=== PATIENT | male | born 1965 | race Caucasian/White ===

== ENCOUNTER → 2016-06-11 | Outpatient (CLI) | payer MEDICAID ==
[2016-06-11 11:46] LABS: ALANINE AMINOTRANSFERASE 28 U/L (21-72); ALBUMIN 3.8 g/dL (3.5-5.0); ALKALINE PHOSPHATASE 107 U/L (38-126); ANION GAP 12 (5-19); ASPARTATE AMINO TRANSFERASE 20 U/L (17-59); BILIRUBIN,TOTAL 0.4 mg/dL (0.2-1.3); BLOOD UREA NITROGEN 13 mg/dL (7-20); CALCIUM 9.2 mg/dL (8.4-10.2); CARBON DIOXIDE 27 mmol/L (22-30); CHLORIDE 103 mmol/L (98-107); CREATININE RESULT 0.81 mg/dL (0.52-1.25); GLUCOSE 85 mg/dL (75-110); SODIUM 141.7 mmol/L (137-145); TOTAL PROTEIN 6.8 g/dL (6.3-8.2)
== END ==
LOC: OD 10:26
PROVIDERS: ATTEND Nurse Practitioner Adult Health
DX: G25.81 Restless legs syndrome (principal)
CPT/HCPCS: 36415; 80053; 82306; 82607; 82728

== ENCOUNTER → 2016-06-19 | Outpatient (CLI) | payer MEDICAID ==
[2016-06-19 10:44] LABS: ABSOLUTE BASOPHILS # (AUTO) 0.1 10^3/uL (0.0-0.2); ABSOLUTE EOSINOPHILS # (AUTO) 0.1 10^3/uL (0.0-0.6); ABSOLUTE MONOCYTES (AUTO) 0.3 10^3/uL (0.1-1.4); ABSOLUTE NEUT (AUTO) 7.6 10^3/uL (1.7-8.2); BASOPHILS % (AUTO) 0.6 % (0-2); HEMATOCRIT 45.5 % (37.9-51.0); HEMOGLOBIN 15.6 g/dL (13.5-17.0); HGB HCT DIFFERENCE 1.3; LYMPHOCYTES % (AUTO) 10.9 % (13-45); MEAN CORPUSCULAR HEMOGLOBIN 34.6 pg (27.0-33.4); MEAN CORPUSCULAR HGB CONC 34.4 g/dL (32.0-36.0); MEAN CORPUSCULAR VOLUME 101 fl (80-97); MONOCYTES % (AUTO) 3.8 % (3-13); RED BLOOD COUNT 4.52 10^6/uL (4.35-5.55); SEGMENTED NEUTROPHILS % (AUTO) 83.7 % (42-78)
[2016-06-19 11:26] LABS: ERYTHROCYTE SEDIMENTATION RATE 16 mm/hr (0-20)
[2016-06-19 11:48] LABS: ADD HIVPANEL? NO; HIV (1 AND 2) ANTIBODY NEGATIVE (NEGATIVE)
[2016-06-20 08:47] LABS: PSA FREE 0.25 ng/mL
[2016-06-20 12:38] LABS: JO-1 ANTIBODY <0.2 AI (0.0-0.9)
== END ==
LOC: OD 10:17
PROVIDERS: ATTEND Nurse Practitioner Adult Health
DX: F50.00 Anorexia nervosa, unspecified (principal)
CPT/HCPCS: 36415; 84154; 85025; 85652; 86225; 86235; 86304; 86430; 86701

== ENCOUNTER → 2017-01-31 | Outpatient (CLI) | payer MEDICAID ==
--- NOTE | 2017-01-31 10:29 | RADIOLOGY REPORT (SQ) ---
EXAM DESCRIPTION: CT CHEST WITHOUT COMPLETED DATE/TIME: 01/31/2017 9:18 am REASON FOR STUDY: OTHER NONSPECIFIC ABN FINDING OF LUNG FIELD (R91.8) R91.8 OTHER NONSPECIFIC ABNOR MAL FINDING OF LUNG FIELD COMPARISON: 04/19/2016. Correlation: PET-CT 05/10/2016 TECHNIQUE: CT scan performed of the chest without intravenous contrast. Images reviewed with lung, soft tissue and bone windows. Reconstructed coronal and sagittal MPR images reviewed. All images st ored on PACS. All CT scanners at this facility use dose modulation, iterative reconstruction, and/or weight based d osing when appropriate to reduce radiation dose to as low as reasonably achievable (ALARA). [facility]: Dose Right [facility]: CareDose [facility]: Dose Right [facility]: Teradose 4D [facility]: [employer] RADIATION DOSE: Up-to-date CT equipment and radiation dose reduction techniques were employed. CTDIv ol: 5.6 mGy. DLP: 237 mGy-cm. mGy. LIMITATIONS: No technical limitations. FINDINGS: LUNGS AND PLEURA: The previously described lung nodules are all stable in size with the ex ception of the left lower lobe. There is now a mass measuring about 3.4 by 4.0 cm in the superior se gment of the left lower lobe. No new nodules. Bilateral emphysematous changes. No effusions. HILAR AND MEDIASTINAL STRUCTURES: No identified masses or abnormal nodes. No obvious aneurysm. HEART AND VASCULAR STRUCTURES: No aneurysm. No pericardial effusion. UPPER ABDOMEN: No significant findings. Limited exam. THYROID AND OTHER SOFT TISSUES: No masses. No adenopathy. BONES: No significant finding. HARDWARE: None in the chest. OTHER: No other significant findings. IMPRESSION: Enlarging mass in the superior segment of the left lower lobe. Consider follow-up repea t PET CT. Lesion is amenable to CT-guided biopsy. TECHNICAL DOCUMENTATION: JOB ID: [id number] Quality ID # [id number]: Final reports with documentation of one or more dose reduction techniques (e.g., Au tomated exposure control, adjustment of the mA and/or kV according to patient size, use of iterative reconstruction technique) 2010 [employer]- All Rights Reserved
== END ==
LOC: RAD 09:06
PROVIDERS: ATTEND Internal Medicine Pulmonary Disease
DX: R91.8 Other nonspecific abnormal finding of lung field (principal)
CPT/HCPCS: 71250

== ENCOUNTER 2017-02-12 10:27 | Day surgery (SDC) | payer MEDICAID ==
[~2017-02-12 10:27] MED LIST: KETOROLAC TROMETHAMINE 0.45% 4 DROP/0.4 ML DROPERETTE OS PRN; MITOMYCIN OPH SOLN 0.02% 2 ML OS PRN
[2017-02-12] MEDS ORDERED: TOBRAMYCIN SULFATE/DEXAMETH OPH OINTMENT 3.5 GM ONE (10:44)
[2017-02-12] MEDS ORDERED: LIDOCAINE 1%/EPINEPHRINE INJ 20 ML VIAL ONE (10:44)
[2017-02-12] MEDS: BESIFLOXACIN HCL 0.6% OPH SUSP 5 ML BOTTLE OS PRN ×3 (11:09→12:56)
[2017-02-12] MEDS: TETRACAINE HCL 0.5% OPH SOLN 0.6 ML DROPERETTE OS PRN ×2 (11:10→12:05)
[2017-02-12] MEDS ORDERED: FENTANYL CITRATE INJ/PF 100 MCG/2 ML AMPUL ONE (11:33)
[2017-02-12] MEDS ORDERED: MIDAZOLAM 2 MG/2 ML INJ ONE (11:33)
[2017-02-12] MEDS ORDERED: LIDOCAINE 2% INJ-PF (20 MG/ML) 10 ML AMPUL ONE (11:34)
[2017-02-12] MEDS ORDERED: PROPOFOL INJ 200 MG/20 ML VIAL IV ONE (11:34)
[2017-02-12] MEDS ORDERED: ALBUTEROL SULFATE 0.083% NEB 2.5 MG/3 ML AMPUL NEB ONE (11:35)
[2017-02-12] MEDS ORDERED: POVIDONE-IODINE 5% OPH PREP SOLN 30 ML ONE (12:01)
== END 2017-02-12 13:29 | disposition home or self-care (01) ==
LOC: SC 10:27
PROVIDERS: ATTEND Ophthalmology
PROC: 08BTXZZ Excision of Left Conjunctiva, External Approach (ICD-10-PCS; principal; 2017-02-12 11:45)
DX: H11.052 Peripheral pterygium, progressive, left eye (principal); F17.210 Nicotine dependence, cigarettes, uncomplicated; J44.9 Chronic obstructive pulmonary disease, unspecified; E78.00 Pure hypercholesterolemia, unspecified; K21.9 Gastro-esophageal reflux disease without esophagitis; F32.9 Major depressive disorder, single episode, unspecified; Z79.51 Long term (current) use of inhaled steroids; Z79.899 Other long term (current) drug therapy; Z99.81 Dependence on supplemental oxygen; Z88.0 Allergy status to penicillin
CPT/HCPCS: 65426; J2250; J3490 ×6; J3010; J2704; J9280; 140

== ENCOUNTER → 2017-02-21 | Outpatient (CLI) | payer MEDICAID ==
[2017-02-21 09:28] LABS: ABSOLUTE BASOPHILS # (AUTO) 0.1 10^3/uL (0.0-0.2); ABSOLUTE EOSINOPHILS # (AUTO) 0.2 10^3/uL (0.0-0.6); ABSOLUTE LYMPHOCYTES (AUTO) 1.3 10^3/uL (0.5-4.7); ABSOLUTE MONOCYTES (AUTO) 0.5 10^3/uL (0.1-1.4); ABSOLUTE NEUT (AUTO) 9.3 10^3/uL (1.7-8.2); BASOPHILS % (AUTO) 0.5 % (0-2); EOSINOPHILS % (AUTO) 1.4 % (0-6); HEMATOCRIT 43.1 % (37.9-51.0); HEMOGLOBIN 14.8 g/dL (13.5-17.0); HGB HCT DIFFERENCE 1.3; LYMPHOCYTES % (AUTO) 11.1 % (13-45); MEAN CORPUSCULAR HEMOGLOBIN 34.3 pg (27.0-33.4); MEAN CORPUSCULAR HGB CONC 34.5 g/dL (32.0-36.0); MEAN CORPUSCULAR VOLUME 100 fl (80-97); MONOCYTES % (AUTO) 4.8 % (3-13); RED BLOOD COUNT 4.32 10^6/uL (4.35-5.55); RED CELL DISTRIBUTION WIDTH 14.2 % (11.5-14.0); SEGMENTED NEUTROPHILS % (AUTO) 82.2 % (42-78); WHITE BLOOD COUNT 11.3 10^3/uL (4.0-10.5)
[2017-02-21 09:44] LABS: PROTHROMBIN TIME 12.6 SEC (11.4-15.4)
== END ==
LOC: LAB 09:18
PROVIDERS: ATTEND Internal Medicine Pulmonary Disease
DX: R91.8 Other nonspecific abnormal finding of lung field (principal)
CPT/HCPCS: 36415; 82310; 85025; 85610; 85730

== ENCOUNTER 2017-02-24 08:54 | Inpatient (IN) | payer MEDICAID ==
[2017-02-24 09:56] LABS: HEMATOCRIT 43.5 % (37.9-51.0); HEMOGLOBIN 14.9 g/dL (13.5-17.0); HGB HCT DIFFERENCE 1.2; MEAN CORPUSCULAR HEMOGLOBIN 34.2 pg (27.0-33.4); MEAN CORPUSCULAR HGB CONC 34.3 g/dL (32.0-36.0); MEAN CORPUSCULAR VOLUME 100 fl (80-97); RED BLOOD COUNT 4.36 10^6/uL (4.35-5.55); RED CELL DISTRIBUTION WIDTH 13.6 % (11.5-14.0); WHITE BLOOD COUNT 10.8 10^3/uL (4.0-10.5)
[2017-02-24 10:12] LABS: PROTHROMBIN TIME 12.5 SEC (11.4-15.4)
[2017-02-24 10:13] LABS: PARTIAL THROMBOPLASTIN TIME 40.8 SEC (23.5-35.8)
[2017-02-24 10:23] LABS: BLOOD UREA NITROGEN 11 mg/dL (7-20); CREATININE RESULT 0.63 mg/dL (0.52-1.25)
[2017-02-24] MEDS ORDERED: FENTANYL CITRATE INJ/PF 100 MCG/2 ML AMPUL ONE (11:11)
[2017-02-24] MEDS ORDERED: MIDAZOLAM 2 MG/2 ML INJ ONE (11:11)
--- NOTE | 2017-02-24 13:07 | RADIOLOGY REPORT (SQ) ---
EXAM DESCRIPTION: CHEST SINGLE VIEW COMPLETED DATE/TIME: 02/24/2017 12:15 pm REASON FOR STUDY: POST BX OF LUNG COMPARISON: Lung biopsy 02/24/2017, 1130 hours EXAM PARAMETERS: NUMBER OF VIEWS: One view. TECHNIQUE: Single frontal radiographic view of the chest acquired. RADIATION DOSE: NA LIMITATIONS: None. FINDINGS: LUNGS AND PLEURA: This study is immediate post CT-guided left lung nodule biopsy. Left-sided 20 to 40% pneumothorax is evident on the film. Patient's vital signs were stable although he was experiencing pain along the left shoulder and clavicle. Shortly after this film was obtained, a 10 Greek locking pigtail catheter was placed at the left lung apex under CT guidance. Left perihilar previously biopsied nodule is again seen. Right lung hyperinflated and hyperlucent from obstructive disease. No right pneumothorax. MEDIASTINUM AND HILAR STRUCTURES: No masses. Contour normal. HEART AND VASCULAR STRUCTURES: Heart normal in size. Normal vasculature. BONES: No acute findings. HARDWARE: None in the chest. OTHER: No other significant finding. IMPRESSION: Immediate post procedure chest x-ray demonstrates a moderate-sized pneumothorax. Subseq uently, a 10 Greek left apical pigtail catheter was placed under CT guidance. TECHNICAL DOCUMENTATION: JOB ID: [id number]
--- NOTE | 2017-02-24 13:17 | RADIOLOGY REPORT (SQ) ---
EXAM DESCRIPTION: CHEST SINGLE VIEW COMPLETED DATE/TIME: 02/24/2017 1:01 pm REASON FOR STUDY: POST CHEST TUBE INSERTION COMPARISON: 02/24/2017 EXAM PARAMETERS: NUMBER OF VIEWS: One view. TECHNIQUE: Single frontal radiographic view of the chest acquired. RADIATION DOSE: NA LIMITATIONS: None. FINDINGS: LUNGS AND PLEURA: A mass is once again seen in the left lung. The pneumothorax has resolv ed. MEDIASTINUM AND HILAR STRUCTURES: No masses. Contour normal. HEART AND VASCULAR STRUCTURES: Heart normal in size. Normal vasculature. BONES: No acute findings. HARDWARE: Pigtail catheter is present in left hemithorax. OTHER: No other significant finding. IMPRESSION: The pneumothorax has resolved after placement of a chest tube. Left pulmonary mass. TECHNICAL DOCUMENTATION: JOB ID: [id number]
--- NOTE | 2017-02-24 14:34 | RADIOLOGY REPORT (SQ) ---
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 LIMITATIONS: None. PROCEDURE: Post biopsy chest film shows a moderate-sized pneumothorax. Patient's vital signs were s table, pulse oximetry 99%. However, he was experiencing left shoulder and clavicle pain. CT-guided chest tube placement was performed, chest tube placed to a Pleur-evac device on 20 cm of water suctio n. Post chest tube placement CT demonstrates a trace apical residual pneumothorax. Findings discuss ed with Dr. Gaspar and Dr. Jackson Images acquired during the procedure were stored on PACS. All CT scanners at this facility use dose modulation, iterative reconstruction, and/or weight based d osing when appropriate to reduce radiation dose to as low as reasonably achievable (ALARA). [facility]: Dose Right [facility]: CareDose [facility]: Dose Right [facility]: Teradose 4D [facility]: Issue FINDINGS: Post biopsy chest film was reviewed. The findings were immediately discussed with the pat ient who agreed to CT-guided chest tube placement. Patient placed supine on the CT gurney, site marked, timeout performed. Helical CT demonstrated a mo derate-sized anterior left pneumothorax. Site prepped with ChloraPrep, local lidocaine for skin and soft tissue anesthesia. An 18 gauge singl e wall access needle was used to the access the anterior upper left chest 3rd rib interspace. Prompt return of air. At this point, a 0.38 guidewire was placed through the needle, the needle removed, t he tract dilated with a 7 Wolof dilator, and at 10 Wolof locking pigtail catheter was placed, with the pigtail tip over the left lung apex. Manual evacuation of the pneumothorax was performed, patient's shoulder pain improved. Vital signs r emained stable during the procedure and immediately after procedure. The tube was secured to the patient's skin, and placed to a Pleur-evac device on 20 cm of water sucti on. Post chest tube placement plain film demonstrated resolution of the left pneumothorax. During the procedure, patient was given 50 mcg of IV fentanyl for pain control. Continuous physiolog ic monitoring of patient before during and after the IV pain control by radiology nursing personnel. IMPRESSION: SUCCESSFUL CT GUIDED LEFT CHEST TUBE PLACEMENT. COMMENT: Patient medication list reviewed: Yes- RS [id number]:Eligible professional attests to document ing in the medical record they obtained, updated, or reviewed the patient's current medications. Quality ID 145: Final reports for procedures using fluoroscopy that document radiation exposure maikel liz, or exposure time and number of fluorographic images (if radiation exposure indices are not avail able) TECHNICAL DOCUMENTATION: JOB ID: [id number] Quality ID # 436: Final reports with documentation of one or more dose reduction techniques (e.g., Au tomated exposure control, adjustment of the mA and/or kV according to patient size, use of iterative reconstruction technique) 2010 [employer]- All Rights Reserved
--- NOTE | 2017-02-24 14:40 | RADIOLOGY REPORT (SQ) ---
EXAM DESCRIPTION: CT BIOPSY LUNG/MEDIASTINUM; CT NEEDLE PLACEMENT COMPLETED DATE/TIME: 02/24/2017 2:00 pm REASON FOR STUDY: NONSPECIFIC ABNORMAL FINDINGS OF LUNG FIELD R91.8 OTHER NONSPECIFIC ABNORMAL FIND ING OF LUNG FIELD COMPARISON: NEXT TECHNIQUE: CT guided biopsy of the LEFT LOWER LOBE CAVITARY MASS performed with conscious sedation. CT Fluoroscopy Time: [address] scanners at this facility use dose modulation, iterative reconstruction, and/or weight based d osing when appropriate to reduce radiation dose to as low as reasonably achievable (ALARA). [facility]: Dose Right [facility]: CareDose [facility]: Dose Right [facility]: Teradose 4D [facility]: [employer] RADIATION DOSE: 72mGy. FINDINGS: The procedure was discussed with the patient and the patient agreed to the procedure. Prio r to the procedure, a time out was performed to verify the patient's identity and planned procedure. IV sedation was administered and physician direction by the registered nurse using 0.5 milligrams of Versed and 50 micrograms of fentanyl. Physiologic monitoring was provided before, during, and after s edation. The total sedation time was 30 minutes. Documentation face to face time, the performing proceduralist, spent monitoring the patient: [address] scanning was performed to localize the percutaneous site for the biopsy approach. After sterile skin prep and local lidocaine for skin and deep tissue anesthesia, a coaxial biopsy nee dle was used to obtain multiple cores of tissue. One core of tissue was submitted to the lab in [facility] [place] and AFB workup Three cores of tissue were submitted to the lab in formalin. Trace pneu mothorax adjacent to the biopsy site seen at the immediate post biopsy CT exam. Follow-up chest film dictated separately demonstrated a moderate-sized left pneumothorax. The 10 Persian locking pigtail catheter was placed in the left pleural space under CT guidance, dictated separately. Pathology is pending at the time of dictation. IMPRESSION: CT GUIDED BIOPSY OF THE LEFT LOWER LOBE MASS PATHOLOGY PENDING. COMMENT: Quality ID 145: Final reports for procedures using fluoroscopy that document radiation exp osure indices, or exposure time and number of fluorographic images (if radiation exposure indices are not available) Patient medication list reviewed: Yes- Quality ID# [id number]:Eligible professional attests to documenting i n the medical record they obtained, updated, or reviewed the patient's current medications.. TECHNICAL DOCUMENTATION: JOB ID: [id number] Quality ID# 436: Final reports with documentation of one or more dose reduction techniques (e.g., Aut omated exposure control, adjustment of the mA and/or kV according to patient size, use of iterative r econstruction technique) 2010 [employer]- All Rights Reserved
--- NOTE | 2017-02-24 14:40 | RADIOLOGY REPORT (SQ) ---
EXAM DESCRIPTION: CT BIOPSY LUNG/MEDIASTINUM; CT NEEDLE PLACEMENT COMPLETED DATE/TIME: 02/24/2017 2:00 pm REASON FOR STUDY: NONSPECIFIC ABNORMAL FINDINGS OF LUNG FIELD R91.8 OTHER NONSPECIFIC ABNORMAL FIND ING OF LUNG FIELD COMPARISON: NEXT TECHNIQUE: CT guided biopsy of the LEFT LOWER LOBE CAVITARY MASS performed with conscious sedation. CT Fluoroscopy Time: [address] scanners at this facility use dose modulation, iterative reconstruction, and/or weight based d osing when appropriate to reduce radiation dose to as low as reasonably achievable (ALARA). [facility]: Dose Right [facility]: CareDose [facility]: Dose Right [facility]: Teradose 4D [facility]: [employer] RADIATION DOSE: 72mGy. FINDINGS: The procedure was discussed with the patient and the patient agreed to the procedure. Prio r to the procedure, a time out was performed to verify the patient's identity and planned procedure. IV sedation was administered and physician direction by the registered nurse using 0.5 milligrams of Versed and 50 micrograms of fentanyl. Physiologic monitoring was provided before, during, and after s edation. The total sedation time was 30 minutes. Documentation face to face time, the performing proceduralist, spent monitoring the patient: [address] scanning was performed to localize the percutaneous site for the biopsy approach. After sterile skin prep and local lidocaine for skin and deep tissue anesthesia, a coaxial biopsy nee dle was used to obtain multiple cores of tissue. One core of tissue was submitted to the lab in [facility] for fungal and AFB workup Three cores of tissue were submitted to the lab in formalin. Trace pneu mothorax adjacent to the biopsy site seen at the immediate post biopsy CT exam. Follow-up chest film dictated separately demonstrated a moderate-sized left pneumothorax. The 10 Mongolian locking pigtail catheter was placed in the left pleural space under CT guidance, dictated separately. Pathology is pending at the time of dictation. IMPRESSION: CT GUIDED BIOPSY OF THE LEFT LOWER LOBE MASS PATHOLOGY PENDING. COMMENT: Quality ID 145: Final reports for procedures using fluoroscopy that document radiation exp osure indices, or exposure time and number of fluorographic images (if radiation exposure indices are not available) Patient medication list reviewed: Yes- Quality ID# [id number]:Eligible professional attests to documenting i n the medical record they obtained, updated, or reviewed the patient's current medications.. TECHNICAL DOCUMENTATION: JOB ID: [id number] Quality ID# 436: Final reports with documentation of one or more dose reduction techniques (e.g., Aut omated exposure control, adjustment of the mA and/or kV according to patient size, use of iterative r econstruction technique) 2010 [employer]- All Rights Reserved
--- NOTE | 2017-02-24 15:22 | RADIOLOGY REPORT (SQ) ---
EXAM DESCRIPTION: CHEST SINGLE VIEW COMPLETED DATE/TIME: 02/24/2017 3:09 pm REASON FOR STUDY: 2 HOUR POST CHEST TUBE PLACEMENT @ 1500 COMPARISON: 02/24/2017 EXAM PARAMETERS: NUMBER OF VIEWS: One view. TECHNIQUE: Single frontal radiographic view of the chest acquired. RADIATION DOSE: NA LIMITATIONS: None. FINDINGS: LUNGS AND PLEURA: Stable left-sided lung masses. No new opacities, masses or significant residual pneumothorax. No pleural effusion. MEDIASTINUM AND HILAR STRUCTURES: No masses. Contour normal. HEART AND VASCULAR STRUCTURES: Heart normal in size. Normal vasculature. BONES: Will position left-sided chest tube. HARDWARE: None in the chest. OTHER: No other significant finding. IMPRESSION: NO SIGNIFICANT RESIDUAL PNEUMOTHORAX STATUS POST LUNG BIOPSY AND PLACEMENT OF CHEST TUBE . STABLE APPEARANCE OF LEFT-SIDED LUNG MASSES. TECHNICAL DOCUMENTATION: JOB ID: [id number]
[2017-02-24] MEDS: OXYCODONE-ACETAMINOPHEN 5-325 MG TABLET PO PRN ×2 (15:53→20:18)
[2017-02-24] MEDS ORDERED: ALBUTEROL SULFATE 0.083% NEB 2.5 MG/3 ML AMPUL NEB PRN ×2 (16:21→16:56)
[2017-02-24] MEDS ORDERED: ACETAMINOPHEN 325 MG TABLET PO PRN (16:23)
[2017-02-24] MEDS ORDERED: ONDANSETRON HCL INJ/PF 4 MG/2 ML SDV IV PRN (16:23)
--- NOTE | 2017-02-24 16:39 | PDOC H&P ---
History of Present Illness Admission Date/PCP: 02/24/17 13:05 RAYMOND PONCE PA-C Patient complains of: Pneumothorax History of Present Illness: KRISTIE MAYBERRY JR is a 51 year old male, with COPD oxygen dependent left lung mass who underwent CT-guided biopsy in radiology earlier today outpatient developed pneumothorax requiring insertion of the chest tube and referring the patient for observation. Patient apparently in his usual state of health, chronic shortness of breath on exertion, oxygen dependent at night. Chronic expiratory wheezing that is mild. Chronic coughing as well. There was no new symptoms for the past several weeks. Patient denies any chills and fever. Denies any specific complaints at this time other than pain on inspiration on the chest tube insertion site. Past Medical History Cardiac Medical History: Reports: Hyperlipidema, Other - Abdominal aortic aneurysm Denies: Coronary Artery Disease, Myocardial Infarction, Hypertension Pulmonary Medical History: Reports: Asthma, Bronchitis, Chronic Obstructive Pulmonary Disease (COPD), Pneumonia, Respiratory Failure - Oxygen dependent Neurological Medical History: Reports: Seizures - 2007 put on seizure/MEDICATED QHS GI Medical History: Reports: Gastroesophageal Reflux Disease Denies: Hepatitis, Hiatal Hernia Musculoskeltal Medical History: Reports: Arthritis, Other - Chronic pain Psychiatric Medical History: Reports: Depression Hematology: Denies: Anemia, Sickle Cell Disease Past Surgical History Past Surgical History: Reports: Other - Chest tube placement Denies: Pacemaker Social History Information Source: Patient Smoking Status: Current Every Day Smoker Frequency of Alcohol Use: None Hx Recreational Drug Use: No Drugs: None Hx Prescription Drug Abuse: No Family History Family History: CAD, Other - COPD -father Parental Family History Reviewed: Yes Children Family History Reviewed: Yes Sibling(s) Family History Reviewed.: Yes Medication/Allergy Home Medications: Phenytoin Sodium Extended [Dilantin] 300 mg PO QHS 12/27/12 Simvastatin 40 mg PO QHS 12/27/12 Esomeprazole Mag Trihydrate [Nexium] 40 mg PO DAILY 11/26/14 Fluticasone/Salmeterol [Advair 500-50 Diskus 28 Dose] 1 inh IH Q12 11/26/14 Albuterol Sulfate [Ventolin 0.083% Neb 2.5 mg/3 ml Ampul] 1 vial NEB Q4HP PRN Duloxetine HCl [Cymbalta] 60 mg PO DAILY 02/24/17 Hydrocodone/Acetaminophen [[place] 10-325 mg Tablet] 1 tab PO Q6HP PRN 02/24/17 Ipratropium/Albuterol Sulfate [Iprat-Albut 0.5-3(2.5) Mg/3 Ml] 3 ml IH Q6 Lubiprostone [Amitiza 24 Mcg Capsule] 24 mcg PO Q12 02/24/17 Montelukast Sodium [Singulair 10 mg Tablet] 10 mg PO DAILY 02/24/17 Oxycodone HCl/Acetaminophen [Percocet 10-325 Mg Tablet] 1 each PO Q6HP PRN 02/24 Prednisone [Deltasone 10 mg Tablet] 20 mg PO DAILY 02/24/17 Tizanidine HCl [Zanaflex 4 Mg Tablet] 2 mg PO QHS 02/24/17 Varenicline Tartrate [Chantix] 1 tab PO ASDIR PRN 02/24/17 Allergies/Adverse Reactions: Penicillins Allergy (Verified 10/08/15 21:59) Review of Systems Constitutional: PRESENT: chills - But patient feels cold all the time. ABSENT: fever(s), headache(s), weakness, weight gain, weight loss Eyes: ABSENT: visual disturbances Ears: ABSENT: hearing changes Nose, Mouth, and Throat: ABSENT: mouth pain, sore throat Cardiovascular: PRESENT: chest pain - On the site of chest tube placement, dyspnea on exertion - Chronic. ABSENT: edema, orthropnea, palpitations Respiratory: ABSENT: cough, hemoptysis Gastrointestinal: PRESENT: nausea - Attributed to the salad he ate yesterday and has resolved, vomiting - Attributed to the salad that he ate yesterday and resolved. ABSENT: abdominal pain, constipation, diarrhea, hematemesis, hematochezia, melena Genitourinary: ABSENT: dysuria, hematuria Musculoskeletal: ABSENT: joint swelling Integumentary: ABSENT: rash, wounds Neurological: ABSENT: abnormal gait, abnormal speech, confusion, dizziness, focal weakness, syncope Psychiatric: ABSENT: anxiety, depression, homidical ideation, suicidal ideation Endocrine: ABSENT: cold intolerance, heat intolerance, polydipsia, polyuria Hematologic/Lymphatic: ABSENT: easy bleeding, easy bruising Physical Exam Vital Signs: Temp Pulse Resp BP Pulse Ox 98.3 F 81 18 132/85 H 93 02/24/17 10:21 10/09/17 10:21 02/24/17 10:21 02/24/17 10:21 02/24/17 10:21 Intake & Output 02/23/17 02/24/17 02/25/17 06:59 06:59 06:59 Weight 74.843 kg General appearance: PRESENT: no acute distress, cooperative Head exam: PRESENT: normocephalic Eye exam: PRESENT: conjunctiva pink, EOMI, PERRLA. ABSENT: scleral icterus Ear exam: PRESENT: normal external ear exam Mouth exam: PRESENT: moist, neck supple, tongue midline Neck exam: ABSENT: carotid bruit, JVD, lymphadenopathy, thyromegaly Respiratory exam: PRESENT: wheezes - Mild bilateral chronic. ABSENT: rales, rhonchi Cardiovascular exam: PRESENT: RRR. ABSENT: diastolic murmur, rubs, systolic murmur Pulses: PRESENT: normal dorsalis pedis pul Vascular exam: PRESENT: normal capillary refill GI/Abdominal exam: PRESENT: normal bowel sounds, soft. ABSENT: distended, guarding, mass, organolmegaly, rebound, tenderness Rectal exam: PRESENT: deferred Extremities exam: PRESENT: full ROM. ABSENT: calf tenderness, clubbing, pedal edema Neurological exam: PRESENT: alert, awake, oriented to person, oriented to place , oriented to time, oriented to situation Psychiatric exam: PRESENT: appropriate affect, normal mood. ABSENT: homicidal ideation, suicidal ideation Skin exam: PRESENT: dry, intact, warm. ABSENT: cyanosis, rash Results Laboratory Results: 02/24/17 09:30 02/24/17 09:30 02/24/17 02/24/17 09:30 09:30 WBC 10.8 H RBC 4.36 Hgb 14.9 Hct 43.5 MCV 100 H MCH 34.2 H MCHC 34.3 RDW 13.6 Plt Count 260 BUN 11 Creatinine 0.63 Est GFR ( Amer) > 60 Est GFR (Non-Af Amer) > 60 02/24/17 11:55 Biopsy Fungal Smear - Final Not Reportable 02/24/17 11:55 Biopsy Fungal Smear - Final Not Reportable 02/24/17 11:55 Biopsy Fungal Smear - Final Not Reportable 02/24/17 11:55 Biopsy Fungal Smear - Final Not Reportable 02/24/17 11:55 Biopsy Fungal Smear - Final Not Reportable 02/24/17 11:55 Biopsy Fungal Culture - Final Not Reportable 02/24/17 11:55 Biopsy Fungal Culture - Final Not Reportable 02/24/17 11:55 Biopsy Fungal Culture - Final Not Reportable 02/24/17 11:55 Biopsy Susceptibility Special Request - Final Not Reportable 02/24/17 11:55 Biopsy AFB Susceptibiility Slow Grower - Final Not Reportable 02/24/17 11:55 Biopsy AFB Susceptibiility Slow Grower - Final Not Reportable 02/24/17 11:55 Biopsy Microbiology Comment - Final Not Reportable 02/24/17 11:55 Biopsy Nocardia Susceptibility - Final Not Reportable 02/24/17 11:55 Biopsy Nocardia 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 02/24/17 11:55 Biopsy Nocardia Susceptibility - Final Not Reportable 02/24/17 11:55 Biopsy Nocardia Susceptibility - Final Not Reportable 02/24/17 11:55 Biopsy Nocardia Susceptibility - Final Not Reportable 02/24/17 11:55 Biopsy Nocardia Susceptibility - Final Not Reportable 02/24/17 11:55 Biopsy Nocardia Susceptibility - Final Not Reportable 02/24/17 11:55 Biopsy Nocardia Susceptibility - Final Not Reportable 02/24/17 11:55 Biopsy Nocardia Susceptibility - Final Not Reportable 02/24/17 11:55 Biopsy Nocardia Susceptibility - Final Not Reportable 02/24/17 11:55 Biopsy Microbiology Comment - Final Not Reportable Impressions: Chest Tube Insertion 02/24/17 00:00 IMPRESSION: SUCCESSFUL CT GUIDED LEFT CHEST TUBE PLACEMENT. Chest X-Ray 02/24/17 00:00 IMPRESSION: NO SIGNIFICANT RESIDUAL PNEUMOTHORAX STATUS POST LUNG BIOPSY AND PLACEMENT OF CHEST TUBE. STABLE APPEARANCE OF LEFT-SIDED LUNG MASSES. Guidance Needle Placement CT 02/24/17 00:00 IMPRESSION: CT GUIDED BIOPSY OF THE LEFT LOWER LOBE MASS PATHOLOGY PENDING. Lung Biopsy CT 02/24/17 00:00 IMPRESSION: CT GUIDED BIOPSY OF THE LEFT LOWER LOBE MASS PATHOLOGY PENDING. Assessment & Plan - Diagnosis (1) Pneumothorax of left lung after biopsy Is this a current diagnosis for this admission?: Yes (2) Mass of lung Is this a current diagnosis for this admission?: Yes (3) Chronic hypoxemic respiratory failure Is this a current diagnosis for this admission?: Yes (4) Abdominal aortic aneurysm Qualifiers: Presence of rupture: without rupture Qualified Code(s): I71.4 - Abdominal aortic aneurysm, without rupture Is this a current diagnosis for this admission?: Yes (5) Seizure disorder Is this a current diagnosis for this admission?: Yes (6) Hyperlipidemia Qualifiers: Hyperlipidemia type: unspecified Qualified Code(s): E78.5 - Hyperlipidemia , unspecified Is this a current diagnosis for this admission?: Yes (7) Chronic pain syndrome Is this a current diagnosis for this admission?: Yes (8) COPD (chronic obstructive pulmonary disease) Qualifiers: COPD type: unspecified COPD Qualified Code(s): J44.9 - Chronic obstructive pulmonary disease, unspecified Is this a current diagnosis for this admission?: Yes (9) Depression Qualifiers: Depression Type: unspecified Qualified Code(s): F32.9 - Major depressive disorder, single episode, unspecified Is this a current diagnosis for this admission?: Yes - Time Time Spent: 30 to 50 Minutes Within: within 24 hours - Plan Summary Plan Summary: The patient will be admitted to telemetry. We will give supplemental oxygen. A follow-up chest x-ray will be obtained in the morning. When cleared by interventional radiology to be discharged patient will be sent home. In the meantime I will give the patient as needed morphine intravenously as backup for pain control. I will continue the patient's hydrocodone. DVT prophylaxis with Lovenox will be placed. Further testing depends on initial evaluations outlined above.
[2017-02-24] MEDS ORDERED: NICOTINE 21 MG/24 HR PATCH.TD24 TD ONE (18:00)
[2017-02-24] MEDS ORDERED: IPRATROPIUM/ALBUTEROL 0.5-2.5 MG/3 ML AMPUL NEB SCH (18:00)
[2017-02-24] MEDS: HYDROCODONE/ACETAMINOPHEN 10-325 MG TABLET PO PRN (18:24)
[2017-02-24] MEDS: MORPHINE SULFATE 10 MG/ML INJ IV PRN ×2 (19:01→23:02)
[2017-02-24] MEDS: IPRATROPIUM/ALBUTEROL 0.5-2.5 MG/3 ML AMPUL NEB SCH (19:41)
[2017-02-24] MEDS: FLUTICASONE/SALMETEROL DISKUS 500-50 MCG/DOSE IH SCH (21:39)
[2017-02-24] MEDS: PHENYTOIN SODIUM EXTENDED 100 MG CAPSULE PO SCH (21:39)
[2017-02-24] MEDS: SIMVASTATIN 40 MG TABLET PO SCH (21:40)
[2017-02-24] MEDS: LUBIPROSTONE 24 MCG CAPSULE PO SCH (21:40)
[2017-02-24] MEDS: TIZANIDINE HCL 4 MG TABLET PO SCH (21:41)
[2017-02-25] MEDS: IPRATROPIUM/ALBUTEROL 0.5-2.5 MG/3 ML AMPUL NEB SCH ×4 (02:03→20:14)
[2017-02-25] MEDS: HYDROCODONE/ACETAMINOPHEN 10-325 MG TABLET PO PRN ×2 (02:16→13:19)
[2017-02-25] MEDS: OXYCODONE-ACETAMINOPHEN 5-325 MG TABLET PO PRN ×2 (03:01→08:52)
[2017-02-25] MEDS: MORPHINE SULFATE 10 MG/ML INJ IV PRN ×4 (04:31→20:41)
[2017-02-25 05:13] LABS: HEMATOCRIT 44.3 % (37.9-51.0); HEMOGLOBIN 15.1 g/dL (13.5-17.0); MEAN CORPUSCULAR HEMOGLOBIN 34.5 pg (27.0-33.4); MEAN CORPUSCULAR HGB CONC 34.1 g/dL (32.0-36.0); MEAN CORPUSCULAR VOLUME 101 fl (80-97); RED BLOOD COUNT 4.38 10^6/uL (4.35-5.55); WHITE BLOOD COUNT 10.4 10^3/uL (4.0-10.5)
[2017-02-25 05:29] LABS: ANION GAP 12 (5-19); BLOOD UREA NITROGEN 12 mg/dL (7-20); CALCIUM 9.3 mg/dL (8.4-10.2); CARBON DIOXIDE 28 mmol/L (22-30); CHLORIDE 104 mmol/L (98-107); CREATININE RESULT 0.62 mg/dL (0.52-1.25); GLUCOSE 88 mg/dL (75-110); POTASSIUM 3.9 mmol/L (3.6-5.0); SODIUM 143.5 mmol/L (137-145)
--- NOTE | 2017-02-25 09:15 | RADIOLOGY REPORT (SQ) ---
EXAM DESCRIPTION: CHEST SINGLE VIEW COMPLETED DATE/TIME: 02/25/2017 8:07 am REASON FOR STUDY: pneumothorax COMPARISON: Multiple chest films yesterday CT-guided lung biopsy, 02/24/2017 EXAM PARAMETERS: NUMBER OF VIEWS: One view. TECHNIQUE: Single frontal radiographic view of the chest acquired. RADIATION DOSE: NA LIMITATIONS: None. FINDINGS: LUNGS AND PLEURA: Left upper chest pigtail catheter unchanged. No left pneumothorax. Stable nodules in the superior segment left lower lobe. Minimal bandlike atelectasis right base. No right pleural effusion or pneumothorax. No right pulmon verito nodules. MEDIASTINUM AND HILAR STRUCTURES: No masses. Contour normal. HEART AND VASCULAR STRUCTURES: Heart normal in size. Normal vasculature. BONES: No acute findings. HARDWARE: Left-sided chest tube OTHER: No other significant finding. IMPRESSION: No pneumothorax left chest after overnight 30 cm of water suction. The left chest tube will be put to water seal, a follow-up chest film in 2 hours will be obtained. TECHNICAL DOCUMENTATION: JOB ID: [id number]
[2017-02-25] MEDS ORDERED: (PENDING PHARMACY ID) (Esomeprazole Mag Trihydrate [Nexium] 40 MG) PO SCH (10:00)
[2017-02-25] MEDS: ENOXAPARIN SODIUM INJ 40 MG/0.4 ML DISP.SYRIN SUBCUT SCH (10:07)
[2017-02-25] MEDS: LUBIPROSTONE 24 MCG CAPSULE PO SCH (10:08)
[2017-02-25] MEDS: NICOTINE 21 MG/24 HR PATCH.TD24 TD SCH (10:08)
[2017-02-25] MEDS: FLUTICASONE/SALMETEROL DISKUS 500-50 MCG/DOSE IH SCH (10:08)
[2017-02-25] MEDS: DULOXETINE HCL 30 MG CAPSULE.DR PO SCH (10:08)
[2017-02-25] MEDS: PREDNISONE 10 MG TABLET PO SCH (10:08)
[2017-02-25] MEDS: LANSOPRAZOLE 30 MG TAB.RAP.DR PO SCH (10:09)
[2017-02-25] MEDS: MONTELUKAST SODIUM 10 MG TABLET PO SCH (10:09)
--- NOTE | 2017-02-25 11:05 | RADIOLOGY REPORT (SQ) ---
EXAM DESCRIPTION: CHEST SINGLE VIEW COMPLETED DATE/TIME: 02/25/2017 10:42 am REASON FOR STUDY: S/P CHEST TUBE CLAMPED COMPARISON: AP chest 02/25/2017, 0759 hours EXAM PARAMETERS: NUMBER OF VIEWS: One view. TECHNIQUE: Single frontal radiographic view of the chest acquired. RADIATION DOSE: NA LIMITATIONS: None. FINDINGS: LUNGS AND PLEURA: The left pleural space chest tube has been on water seal for over 2 hour s. No recurrent left pneumothorax. Left chest tube will be removed shortly, and a follow-up stat ch est film will be performed. Unchanged left lower lobe nodules, minimal right basilar atelectasis. No right or left pleural effusion. No right or left pneumothorax. MEDIASTINUM AND HILAR STRUCTURES: No masses. Contour normal. HEART AND VASCULAR STRUCTURES: Heart normal in size. Normal vasculature. BONES: No acute findings. HARDWARE: None in the chest. OTHER: No other significant finding. IMPRESSION: No pneumothorax on water seal. Left chest tube will be removed, an immediate post remov al chest film will be performed. TECHNICAL DOCUMENTATION: JOB ID: [id number]
--- NOTE | 2017-02-25 11:47 | PDOC CONSULTATION ---
Consultation Consult Date: 02/25/17 Attending physician:: MALATHI SINHA Consult reason:: Left pneumothorax History of Present Illness Admission Date/PCP: 02/24/17 16:23 RAYMOND PONCE PA-C History of Present Illness: 51-year-old male followed by my service outpatient advanced COPD and chronic respiratory failure O2 dependent and lung mass which was subsequently biopsied by CT-guided needle.Unfortunately patient had pneumothorax and chest tube was placed ;at this time patient is [facility] and has no complaints of pain or dyspnea. He denies hemoptysis, nausea vomiting fevers chills chest pain dyspnea shortness of breath or edema. Past Medical History Cardiac Medical History: Reports: Hyperlipidema, Other - Abdominal aortic aneurysm Denies: Coronary Artery Disease, Myocardial Infarction, Hypertension Pulmonary Medical History: Reports: Asthma, Bronchitis, Chronic Obstructive Pulmonary Disease (COPD), Pneumonia, Respiratory Failure - Oxygen dependent Neurological Medical History: Reports: Seizures - 2008 put on seizure/MEDICATED QHS GI Medical History: Reports: Gastroesophageal Reflux Disease Denies: Hepatitis, Hiatal Hernia Musculoskeltal Medical History: Reports: Arthritis, Other - Chronic pain Psychiatric Medical History: Reports: Depression Hematology: Denies: Anemia, Sickle Cell Disease Past Surgical History Past Surgical History: Reports: Other - Chest tube placement Denies: Pacemaker Social History Information Source: Patient, [facility] Office, [facility] Records Smoking Status: Current Every Day Smoker Cigarettes Packs Per Day: 1 Number of Years Smokin Passive smoke exposure as: Both Frequency of Alcohol Use: None Hx Recreational Drug Use: No Drugs: None Hx Prescription Drug Abuse: No Have you had any respiratory illnesses as a child?: No Have you been exposed to any sick contacts recently?: No Have you had any recent respiratory illnesses?: No Have you travelled outside of [place] in the past 12 months?: No Family History Family History: CAD, Other - COPD -father Parental Family History Reviewed: Yes Children Family History Reviewed: Yes Sibling(s) Family History Reviewed.: Yes Medication/Allergy Home Medications: Phenytoin Sodium Extended [Dilantin] 300 mg PO QHS 12/27/12 Simvastatin 40 mg PO QHS 12/27/12 Esomeprazole Mag Trihydrate [Nexium] 40 mg PO DAILY 11/26/14 Fluticasone/Salmeterol [Advair 500-50 Diskus 28 Dose] 1 inh IH Q12 11/26/14 Albuterol Sulfate [Ventolin 0.083% Neb 2.5 mg/3 ml Ampul] 1 vial NEB Q4HP PRN Duloxetine HCl [Cymbalta] 60 mg PO DAILY 02/24/17 Hydrocodone/Acetaminophen [Chauncey 10-325 mg Tablet] 1 tab PO Q6HP PRN 02/24/17 Ipratropium/Albuterol Sulfate [Iprat-Albut 0.5-3(2.5) Mg/3 Ml] 3 ml IH Q6 Lubiprostone [Amitiza 24 Mcg Capsule] 24 mcg PO Q12 02/24/17 Montelukast Sodium [Singulair 10 mg Tablet] 10 mg PO DAILY 02/24/17 Oxycodone HCl/Acetaminophen [Percocet 10-325 Mg Tablet] 1 each PO Q6HP PRN 02/24 Prednisone [Deltasone 10 mg Tablet] 20 mg PO DAILY 02/24/17 Tizanidine HCl [Zanaflex 4 Mg Tablet] 2 mg PO QHS 02/24/17 Varenicline Tartrate [Chantix] 1 tab PO ASDIR PRN 02/24/17 Allergies/Adverse Reactions: Penicillins Allergy (Verified 10/08/15 21:59) Review of Systems All systems: reviewed and no additional remarkable complaints except as stated Physical Exam Vital Signs: Temp Pulse Resp BP Pulse Ox 97.9 F 77 18 96/61 L 96 02/25/17 08:14 02/25/17 08:14 02/25/17 08:14 02/25/17 08:14 02/25/17 08:14 Intake & Output 02/24/17 02/25/17 02/26/17 06:59 06:59 06:59 Intake Total 800 Output Total 1850 Balance -1050 Weight 78.7 kg General appearance: PRESENT: no acute distress, cooperative, disheveled, well- developed, well-nourished Head exam: PRESENT: atraumatic, normocephalic Eye exam: PRESENT: conjunctiva pale, EOMI Mouth exam: PRESENT: dry mucosa, neck supple, tongue midline Neck exam: ABSENT: carotid bruit, JVD, lymphadenopathy, thyromegaly Respiratory exam: PRESENT: decreased breath sounds, prolonged expiratory phas, other - Pigtail catheter left hemithorax Cardiovascular exam: PRESENT: RRR, +S1, +S2. ABSENT: tachycardia Pulses: PRESENT: normal radial pulses GI/Abdominal exam: PRESENT: normal bowel sounds, soft. ABSENT: distended, guarding, mass, organolmegaly, rebound, tenderness Rectal exam: PRESENT: deferred Musculoskeletal exam: PRESENT: normal inspection Neurological exam: PRESENT: alert, awake Psychiatric exam: PRESENT: normal mood Skin exam: PRESENT: dry, pallor, warm Results Laboratory Results: 02/25/17 04:17 02/25/17 04:17 02/25/17 02/25/17 04:17 04:17 WBC 10.4 RBC 4.38 Hgb 15.1 Hct 44.3 MCV 101 H MCH 34.5 H MCHC 34.1 RDW 14.0 Plt Count 245 Sodium 143.5 Potassium 3.9 Chloride 104 Carbon Dioxide 28 Anion Gap 12 BUN 12 Creatinine 0.62 Est GFR ( Amer) > 60 Est GFR (Non-Af Amer) > 60 Glucose 88 Calcium 9.3 02/24/17 11:55 Biopsy Fungal Smear - Final Not Reportable 02/24/17 11:55 Biopsy Fungal Smear - Final Not Reportable 02/24/17 11:55 Biopsy Fungal Smear - Final Not Reportable 02/24/17 11:55 Biopsy Fungal Smear - Final Not Reportable 02/24/17 11:55 Biopsy Fungal Smear - Final Not Reportable 02/24/17 11:55 Biopsy Fungal Culture - Final Not Reportable 02/24/17 11:55 Biopsy Fungal Culture - Final Not Reportable 02/24/17 11:55 Biopsy Fungal Culture - Final Not Reportable 02/24/17 11:55 Biopsy Susceptibility Special Request - Final Not Reportable 02/24/17 11:55 Biopsy AFB Susceptibiility Slow Grower - Final Not Reportable 02/24/17 11:55 Biopsy AFB Susceptibiility Slow Grower - Final Not Reportable 02/24/17 11:55 Biopsy Microbiology Comment - Final Not Reportable 02/24/17 11:55 Biopsy Nocardia Susceptibility - Final Not Reportable 02/24/17 11:55 Biopsy Nocardia Susceptibility - Final CONSTRUCTION CODE ADMINISTRATOR 02/24/17 11:55 Biopsy Nocardia Susceptibility - Final Not Reportable 02/24/17 11:55 Biopsy Nocardia Susceptibility - Final Not Reportable 02/24/17 11:55 Biopsy Nocardia Susceptibility - Final Not Reportable 02/24/17 11:55 Biopsy Nocardia Susceptibility - Final Not Reportable 02/24/17 11:55 Biopsy Nocardia Susceptibility - Final Not Reportable 02/24/17 11:55 Biopsy Nocardia Susceptibility - Final Not Reportable 02/24/17 11:55 Biopsy Nocardia Susceptibility - Final Not Reportable 02/24/17 11:55 Biopsy Nocardia Susceptibility - Final Not Reportable 02/24/17 11:55 Biopsy Microbiology Comment - Final Not Reportable Impressions: Chest Tube Insertion 02/24/17 00:00 IMPRESSION: SUCCESSFUL CT GUIDED LEFT CHEST TUBE PLACEMENT. Guidance Needle Placement CT 02/24/17 00:00 IMPRESSION: CT GUIDED BIOPSY OF THE LEFT LOWER LOBE MASS PATHOLOGY PENDING. Lung Biopsy CT 02/24/17 00:00 IMPRESSION: CT GUIDED BIOPSY OF THE LEFT LOWER LOBE MASS PATHOLOGY PENDING. Chest X-Ray 02/25/17 00:00 IMPRESSION: No pneumothorax on water seal. Left chest tube will be removed, an immediate post removal chest film will be performed. Assessment & Plan - Diagnosis (1) Chronic hypoxemic respiratory failure Is this a current diagnosis for this admission?: Yes Plan: Patient needs ABG on 3 L prior to discharge as ABG as outpatient on 2 L was borderline. (2) Mass of lung Is this a current diagnosis for this admission?: Yes Plan: Awaiting pathology report (3) Pneumothorax of left lung after biopsy Is this a current diagnosis for this admission?: Yes Plan: Patient currently on waterseal
[2017-02-25 12:15] LABS: ARTERIAL BLOOD BASE EXCESS 1.7 mmol/L
--- NOTE | 2017-02-25 12:18 | RADIOLOGY REPORT (SQ) ---
EXAM DESCRIPTION: CHEST SINGLE VIEW COMPLETED DATE/TIME: 02/25/2017 11:51 am REASON FOR STUDY: CHEST TUBE REMOVAL COMPARISON: 02/25/2017, 1021 hours EXAM PARAMETERS: NUMBER OF VIEWS: One view. TECHNIQUE: Single frontal radiographic view of the chest acquired. RADIATION DOSE: NA LIMITATIONS: None. FINDINGS: LUNGS AND PLEURA: Breast chest film is immediately post removal of the left pleural space pigtail catheter. No re-accumulation of left-sided pneumothorax. Left lower lobe nodules and right basilar scarring or atelectasis are unchanged. No pleural effusion. MEDIASTINUM AND HILAR STRUCTURES: No masses. Contour normal. HEART AND VASCULAR STRUCTURES: Heart normal in size. Normal vasculature. BONES: No acute findings. HARDWARE: None in the chest. OTHER: No other significant finding. IMPRESSION: No pneumothorax post left chest tube removal. Left lung nodules, right basilar atelectasis unchanged. This result was discussed with Dr. Gaspar TECHNICAL DOCUMENTATION: JOB ID: [id number]
[2017-02-25] MEDS ORDERED: INFLUENZA ADLT QUAD (36MOS+) 2017-18 VAC 0.5 ML SYR IM PRN (13:48)
--- NOTE | 2017-02-25 14:05 | RADIOLOGY REPORT (SQ) ---
EXAM DESCRIPTION: CHEST SINGLE VIEW COMPLETED DATE/TIME: 02/25/2017 1:49 pm REASON FOR STUDY: 2 HOUR POST CHEST TUBE REMOVAL COMPARISON: Multiple films today EXAM PARAMETERS: NUMBER OF VIEWS: One view. TECHNIQUE: Single frontal radiographic view of the chest acquired. RADIATION DOSE: NA LIMITATIONS: None. FINDINGS: LUNGS AND PLEURA: Post left chest tube removal 2 hours ago. No left pneumothorax. Left l raimundo nodules are unchanged. Both lungs are hyperlucent from obstructive disease. No pleural effusions. Minimal right basilar at electasis. No right pneumothorax. MEDIASTINUM AND HILAR STRUCTURES: No masses. Contour normal. HEART AND VASCULAR STRUCTURES: Heart normal in size. Normal vasculature. BONES: No acute findings. HARDWARE: None in the chest. OTHER: No other significant finding. IMPRESSION: No pneumothorax 2 hours post left chest tube removal. TECHNICAL DOCUMENTATION: JOB ID: [id number]
--- NOTE | 2017-02-25 16:44 | PDOC PROGRESS REPORT ---
Subjective Progress Note for:: 02/25/17 Subjective:: Patient complains of some chest pain from his chest tube placement. Physical Exam Vital Signs: Temp Pulse Resp BP Pulse Ox 98.2 F 76 16 93/63 L 97 02/25/17 15:24 02/25/17 15:24 02/25/17 15:24 02/25/17 15:24 02/25/17 15:24 Intake & Output 02/24/17 02/25/17 02/26/17 06:59 06:59 06:59 Intake Total 800 Output Total 1850 Balance -1050 Weight 78.7 kg General appearance: PRESENT: no acute distress Eye exam: PRESENT: conjunctiva pink. ABSENT: scleral icterus Mouth exam: PRESENT: moist, tongue midline Neck exam: ABSENT: JVD Respiratory exam: PRESENT: rhonchi - Coarse rhonchi bilaterally.. ABSENT: rales , wheezes Cardiovascular exam: PRESENT: RRR. ABSENT: diastolic murmur, rubs, systolic murmur GI/Abdominal exam: PRESENT: normal bowel sounds, soft. ABSENT: distended, guarding, mass, organolmegaly, rebound, tenderness Extremities exam: ABSENT: calf tenderness, clubbing, pedal edema Neurological exam: PRESENT: alert, awake, oriented to person, oriented to place , oriented to time, oriented to situation, CN II-XII grossly intact. ABSENT: motor sensory deficit Psychiatric exam: PRESENT: appropriate affect Skin exam: PRESENT: dry, intact, warm. ABSENT: cyanosis, rash Results Laboratory Results: 02/25/17 04:17 02/25/17 04:17 02/25/17 02/25/17 02/25/17 04:17 04:17 12:05 WBC 10.4 RBC 4.38 Hgb 15.1 Hct 44.3 MCV 101 H MCH 34.5 H MCHC 34.1 RDW 14.0 Plt Count 245 Carbonic Acid 1.19 HCO3/H2CO3 Ratio 21:1 ABG pH 7.44 ABG pCO2 39.4 ABG pO2 57.8 L ABG HCO3 25.9 ABG O2 Saturation 91.0 L ABG Base Excess 1.7 FiO2 2L Sodium 143.5 Potassium 3.9 Chloride 104 Carbon Dioxide 28 Anion Gap 12 BUN 12 Creatinine 0.62 Est GFR ( Amer) > 60 Est GFR (Non-Af Amer) > 60 Glucose 88 Calcium 9.3 Impressions: Chest Tube Insertion 02/24/17 00:00 IMPRESSION: SUCCESSFUL CT GUIDED LEFT CHEST TUBE PLACEMENT. Guidance Needle Placement CT 02/24/17 00:00 IMPRESSION: CT GUIDED BIOPSY OF THE LEFT LOWER LOBE MASS PATHOLOGY PENDING. Lung Biopsy CT 02/24/17 00:00 IMPRESSION: CT GUIDED BIOPSY OF THE LEFT LOWER LOBE MASS PATHOLOGY PENDING. Chest X-Ray 02/25/17 00:00 IMPRESSION: No pneumothorax 2 hours post left chest tube removal. Assessment & Plan - Diagnosis (1) Tuberculosis Is this a current diagnosis for this admission?: Yes Plan: The patient had a lung biopsy done yesterday. The AFB stain was positive for acid-fast bacilli. We have to presume that this is tuberculosis until proven otherwise. Patient will be placed in respiratory isolation and we will start on 3 drug therapy. (2) Chronic hypoxemic respiratory failure Is this a current diagnosis for this admission?: Yes Plan: Secondary to COPD (3) Mass of lung Is this a current diagnosis for this admission?: Yes Plan: The biopsy was negative for any malignancy but was positive for AFB. (4) Pneumothorax of left lung after biopsy Is this a current diagnosis for this admission?: Yes Plan: The patient's pneumothorax has improved. (5) Chronic pain syndrome Is this a current diagnosis for this admission?: Yes (6) Hyperlipidemia Qualifiers: Hyperlipidemia type: unspecified Qualified Code(s): E78.5 - Hyperlipidemia , unspecified Is this a current diagnosis for this admission?: Yes (7) Seizure disorder Is this a current diagnosis for this admission?: Yes (8) COPD (chronic obstructive pulmonary disease) Qualifiers: COPD type: unspecified COPD Qualified Code(s): J44.9 - Chronic obstructive pulmonary disease, unspecified Is this a current diagnosis for this admission?: Yes Plan: Continue with nebulizers. (9) Depression Qualifiers: Depression Type: unspecified Qualified Code(s): F32.9 - Major depressive disorder, single episode, unspecified Is this a current diagnosis for this admission?: Yes - Time Time Spent with patient: 25-34 minutes - Inpatient Certification Medical Necessity: Need Close Monitoring Due to Risk of Patient Decompensation - Plan Summary Plan Summary: We will change from an observation to an inpatient because of his need for chest tube and for close monitoring given his positive AFB.
[2017-02-25] MEDS ORDERED: RIFAMPIN 300 MG CAPSULE PO SCH ×2 (17:00→18:00)
[2017-02-25] MEDS ORDERED: PYRAZINAMIDE 500 MG TABLET PO SCH (18:00)
[2017-02-25] MEDS ORDERED: ISONIAZID 300 MG TABLET PO SCH (18:00)
[2017-02-25] MEDS ORDERED: ETHAMBUTOL HCL 400 MG TABLET PO SCH (18:00)
[2017-02-26] MEDS: LUBIPROSTONE 24 MCG CAPSULE PO SCH ×2 (00:09→09:27)
[2017-02-26] MEDS: TIZANIDINE HCL 4 MG TABLET PO SCH (00:09)
[2017-02-26] MEDS: SIMVASTATIN 40 MG TABLET PO SCH (00:10)
[2017-02-26] MEDS: PHENYTOIN SODIUM EXTENDED 100 MG CAPSULE PO SCH (00:14)
[2017-02-26] MEDS: FLUTICASONE/SALMETEROL DISKUS 500-50 MCG/DOSE IH SCH ×2 (00:14→09:27)
[2017-02-26] MEDS: MORPHINE SULFATE 10 MG/ML INJ IV PRN ×2 (01:18→05:29)
[2017-02-26] MEDS: IPRATROPIUM/ALBUTEROL 0.5-2.5 MG/3 ML AMPUL NEB SCH ×2 (01:47→08:10)
[2017-02-26 06:22] LABS: ABSOLUTE BASOPHILS # (AUTO) 0.1 10^3/uL (0.0-0.2); ABSOLUTE EOSINOPHILS # (AUTO) 0.2 10^3/uL (0.0-0.6); ABSOLUTE MONOCYTES (AUTO) 1.1 10^3/uL (0.1-1.4); ABSOLUTE NEUT (AUTO) 4.9 10^3/uL (1.7-8.2); EOSINOPHILS % (AUTO) 2.5 % (0-6); HEMATOCRIT 41.8 % (37.9-51.0); HEMOGLOBIN 14.3 g/dL (13.5-17.0); HGB HCT DIFFERENCE 1.1; LYMPHOCYTES % (AUTO) 24.2 % (13-45); MEAN CORPUSCULAR HEMOGLOBIN 34.1 pg (27.0-33.4); MEAN CORPUSCULAR HGB CONC 34.2 g/dL (32.0-36.0); MEAN CORPUSCULAR VOLUME 100 fl (80-97); RED CELL DISTRIBUTION WIDTH 13.9 % (11.5-14.0); SEGMENTED NEUTROPHILS % (AUTO) 59.3 % (42-78); WHITE BLOOD COUNT 8.3 10^3/uL (4.0-10.5)
[2017-02-26 06:40] LABS: ANION GAP 9 (5-19); BLOOD UREA NITROGEN 16 mg/dL (7-20); CARBON DIOXIDE 27 mmol/L (22-30); CHLORIDE 103 mmol/L (98-107); CREATININE RESULT 0.64 mg/dL (0.52-1.25); GLUCOSE 85 mg/dL (75-110); POTASSIUM 4.2 mmol/L (3.6-5.0); SODIUM 139.3 mmol/L (137-145)
[2017-02-26] MEDS: PREDNISONE 10 MG TABLET PO SCH (09:23)
[2017-02-26] MEDS: LANSOPRAZOLE 30 MG TAB.RAP.DR PO SCH (09:23)
[2017-02-26] MEDS: MONTELUKAST SODIUM 10 MG TABLET PO SCH (09:23)
[2017-02-26] MEDS: OXYCODONE-ACETAMINOPHEN 5-325 MG TABLET PO PRN (09:23)
[2017-02-26] MEDS: NICOTINE 21 MG/24 HR PATCH.TD24 TD SCH (09:24)
[2017-02-26] MEDS: DULOXETINE HCL 30 MG CAPSULE.DR PO SCH (09:24)
[2017-02-26] MEDS: ENOXAPARIN SODIUM INJ 40 MG/0.4 ML DISP.SYRIN SUBCUT SCH (09:25)
--- NOTE | 2017-02-26 09:46 | RADIOLOGY REPORT (SQ) ---
EXAM DESCRIPTION: CHEST PA/LAT COMPLETED DATE/TIME: 02/26/2017 9:08 am REASON FOR STUDY: L pneumothorax COMPARISON: Multiple chest films since 02/24/2017 EXAM PARAMETERS: NUMBER OF VIEWS: two views TECHNIQUE: Digital Frontal and Lateral radiographic views of the chest acquired. RADIATION DOSE: NA LIMITATIONS: none FINDINGS: LUNGS AND PLEURA: No left-sided pneumothorax. Unchanged left lung nodules. Minimal right basilar atelectasis. No pleural effusions. No right pneumothorax. MEDIASTINUM AND HILAR STRUCTURES: No masses or contour abnormalities. HEART AND VASCULAR STRUCTURES: Heart normal size. No evidence for failure. BONES: No acute findings. HARDWARE: None in the chest. OTHER: No other significant finding. IMPRESSION: No left pneumothorax post lung biopsy on 02/24/2017. TECHNICAL DOCUMENTATION: JOB ID: [id number] [employer]- All Rights Reserved
[2017-02-26] MEDS: HYDROCODONE/ACETAMINOPHEN 10-325 MG TABLET PO PRN (12:19)
--- NOTE | 2017-02-26 13:07 | PDOC PROGRESS REPORT ---
Subjective Progress Note for:: 02/26/17 Subjective:: Feeling a little better Physical Exam Vital Signs: Temp Pulse Resp BP Pulse Ox 97.7 F 72 19 109/71 97 02/26/17 12:03 02/26/17 12:03 02/26/17 12:03 02/26/17 12:03 02/26/17 12:03 Intake & Output 02/25/17 02/26/17 02/27/17 06:59 06:59 06:59 Intake Total 800 156 300 Output Total 1850 Balance -1050 156 300 Weight 78.7 kg 78.6 kg General appearance: PRESENT: no acute distress, cooperative, disheveled, well- developed Head exam: PRESENT: atraumatic, normocephalic Eye exam: PRESENT: conjunctiva pale, EOMI Mouth exam: PRESENT: dry mucosa, neck supple, tongue midline Teeth exam: PRESENT: poor dentation Neck exam: ABSENT: carotid bruit, JVD, lymphadenopathy, thyromegaly Respiratory exam: PRESENT: decreased breath sounds, prolonged expiratory phas, rhonchi, symmetrical, unlabored, wheezes. ABSENT: crackles, rales, retraction, stridor, tachypnea Cardiovascular exam: PRESENT: RRR, +S1, +S2. ABSENT: tachycardia Pulses: PRESENT: normal radial pulses GI/Abdominal exam: PRESENT: normal bowel sounds, soft. ABSENT: distended, guarding, mass, organolmegaly, rebound, tenderness Rectal exam: PRESENT: deferred Musculoskeletal exam: PRESENT: normal inspection Neurological exam: PRESENT: alert, awake Psychiatric exam: PRESENT: normal mood Skin exam: PRESENT: dry, warm Results Laboratory Results: 02/26/17 06:03 02/26/17 06:03 02/26/17 02/26/17 06:03 06:03 WBC 8.3 RBC 4.20 L Hgb 14.3 Hct 41.8 MCV 100 H MCH 34.1 H MCHC 34.2 RDW 13.9 Plt Count 222 Seg Neutrophils % 59.3 Lymphocytes % 24.2 Monocytes % 13.0 Eosinophils % 2.5 Basophils % 1.0 Absolute Neutrophils 4.9 Absolute Lymphocytes 2.0 Absolute Monocytes 1.1 Absolute Eosinophils 0.2 Absolute Basophils 0.1 Sodium 139.3 Potassium 4.2 Chloride 103 Carbon Dioxide 27 Anion Gap 9 BUN 16 Creatinine 0.64 Est GFR ( Amer) > 60 Est GFR (Non-Af Amer) > 60 Glucose 85 Calcium 9.0 02/24/17 11:55 Biopsy AFB Smear Concentration - Final 02/24/17 11:55 Biopsy Acid Fast Bacilli Smear - Final Impressions: Chest Tube Insertion 02/24/17 00:00 IMPRESSION: SUCCESSFUL CT GUIDED LEFT CHEST TUBE PLACEMENT. Guidance Needle Placement CT 02/24/17 00:00 IMPRESSION: CT GUIDED BIOPSY OF THE LEFT LOWER LOBE MASS PATHOLOGY PENDING. Lung Biopsy CT 02/24/17 00:00 IMPRESSION: CT GUIDED BIOPSY OF THE LEFT LOWER LOBE MASS PATHOLOGY PENDING. Chest X-Ray 02/26/17 06:00 IMPRESSION: No left pneumothorax post lung biopsy on 02/24/2017. Assessment & Plan - Diagnosis (1) Chronic hypoxemic respiratory failure Is this a current diagnosis for this admission?: Yes Plan: We will need increase in his O2 to 2-1/2 L per nasal cannula (2) Mass of lung Is this a current diagnosis for this admission?: Yes Plan: As per pathology call as fast bacilli are noted in biopsy smears and stains are pending patient should be followed by health department . Discussed at length with patient and family members are the mass will be followed closely therapy for the acid-fast bacillus will be initiated if necessary and if the mask does not diminish or resolve altogether to additional tissue biopsy may be warranted (3) Pneumothorax of left lung after biopsy Is this a current diagnosis for this admission?: Yes Plan: Chest x-ray this morning did not demonstrate pneumothorax patient should be discharged with appointment to see the health department ANH
[2017-02-26 13:08] VITALS: BP 132/85
--- NOTE | 2017-02-26 14:25 | PDOC DISCHARGE SUMMARY ---
General - Admit/Disc Date/PCP Admission Date/Primary Care Provider: 02/24/17 16:38 RAYMOND PONCE PA-C Discharge Date: 02/26/17 - Discharge Diagnosis (1) Tuberculosis Is this a current diagnosis for this admission?: Yes Summary: Patient had AFB found on Gram stain of lung biopsy. This is presumed to be tuberculosis. Final ID on these organisms are pending. He is being sent home on 4 drug therapy. (2) Chronic hypoxemic respiratory failure Is this a current diagnosis for this admission?: Yes (3) Mass of lung Is this a current diagnosis for this admission?: Yes Summary: Biopsy showed AFB. (4) Pneumothorax of left lung after biopsy Is this a current diagnosis for this admission?: Yes Summary: Patient required a chest tube. It has been removed and he has no evidence for recurrence of the pneumothorax. (5) Chronic pain syndrome Is this a current diagnosis for this admission?: Yes (6) Hyperlipidemia Is this a current diagnosis for this admission?: Yes (7) Seizure disorder Is this a current diagnosis for this admission?: Yes (8) COPD (chronic obstructive pulmonary disease) Is this a current diagnosis for this admission?: Yes (9) Depression Is this a current diagnosis for this admission?: Yes - Additional Information Resuscitation Status: Full Code Discharge Diet: Cardiac Discharge Activity: Activity As Tolerated Home Medications: Phenytoin Sodium Extended [Dilantin] 300 mg PO QHS 12/27/12 Simvastatin 40 mg PO QHS 12/27/12 Esomeprazole Mag Trihydrate [Nexium] 40 mg PO DAILY 11/26/14 Fluticasone/Salmeterol [Advair 500-50 Diskus 28 Dose] 1 inh IH Q12 11/26/14 Albuterol Sulfate [Ventolin 0.083% Neb 2.5 mg/3 mL Ampul] 1 vial NEB Q4HP PRN Duloxetine HCl [Cymbalta] 60 mg PO DAILY 02/24/17 Hydrocodone/Acetaminophen [Bentley 10-325 mg Tablet] 1 tab PO Q6HP PRN 02/24/17 Ipratropium/Albuterol Sulfate [Iprat-Albut 0.5-3(2.5) mg/3 ml] 3 ml IH Q6 Lubiprostone [Amitiza 24 Mcg Capsule] 24 mcg PO Q12 02/24/17 Montelukast Sodium [Singulair 10 mg Tablet] 10 mg PO DAILY 02/24/17 Oxycodone HCl/Acetaminophen [Percocet 10-325 mg Tablet] 1 each PO Q6HP PRN 02/24 Prednisone [Deltasone 10 mg Tablet] 20 mg PO DAILY 02/24/17 Tizanidine HCl [Zanaflex 4 mg Tablet] 2 mg PO QHS 02/24/17 Varenicline Tartrate [Chantix] 1 tab PO ASDIR PRN 02/24/17 Ethambutol HCl [Myambutol 400 mg Tablet] 1,600 mg PO QPM 30 Days tablet Flu Vacc [id number] [id number] Up/Pf [Fluzone Adlt Quad [id number] Vac 0.5 ml Syr] 0.5 ml IM .DISCHARGE PRN disp.syrin 02/26/17 Isoniazid [Isoniazid 300 mg Tablet] 300 mg PO QPM 30 Days tablet 02/26/17 Nicotine [Nicoderm 21 mg/24 Hr Transderm Patch] 1 each TD DAILY patch.td24 04/04 Pyrazinamide [Pyrazinamide 500 mg Tablet] 2,000 mg PO QPM 30 Days tablet Rifampin [Rifadin 300 mg Capsule] 600 mg PO QPM 30 Days capsule 02/26/17 History of Present Illness History of Present Illness: KRISTIE MAYBERRY JR is a 51 year old male with a history of COPD and is oxygen dependent who presented with a left lung mass. The patient underwent CT-guided biopsy and radiology on the day of admission and developed a pneumothorax requiring a chest tube. Patient is admitted for management of his chest tube and pneumothorax. Hospital Course Hospital Course: 51-year-old male who had a lung mass that was biopsied in radiology under CT guided biopsy. The patient had a postprocedure pneumothorax and required admission. The patient had a chest tube placed and his pneumothorax resolved. His chest tube was removed and his lung remained inflated. His biopsy however came back with acid-fast bacilli present. Because of this he was placed in isolation and it was felt that he should start 4 drug therapy for presumed tuberculosis. We are awaiting the final culture on this to confirm that it is tuberculosis. The health department has been contacted. Patient also has been instructed to wear a mask when he is out of public but to avoid going out of the house unless it is necessary. Patient is sent home on his usual medications plus the 4 drug therapy. Patient was seen by his pinion and wheel truer Dr. Gaspar while hospitalized. His other medical problems were stable during this hospitalization. Physical Exam Vital Signs: Temp Pulse Resp BP Pulse Ox 97.7 F 72 19 132/85 H 97 02/26/17 13:05 02/26/17 13:05 02/26/17 13:05 02/26/17 13:05 02/26/17 13:05 Intake & Output 02/25/17 02/26/17 02/27/17 06:59 06:59 06:59 Intake Total 800 156 300 Output Total 1850 Balance -1050 156 300 Weight 78.7 kg 78.6 kg General appearance: PRESENT: no acute distress Eye exam: PRESENT: conjunctiva pink. ABSENT: scleral icterus Mouth exam: PRESENT: moist, tongue midline Neck exam: ABSENT: carotid bruit, JVD, lymphadenopathy, thyromegaly Respiratory exam: PRESENT: decreased breath sounds. ABSENT: rales, rhonchi, wheezes Cardiovascular exam: PRESENT: RRR. ABSENT: diastolic murmur, rubs, systolic murmur GI/Abdominal exam: PRESENT: normal bowel sounds, soft. ABSENT: distended, guarding, mass, organolmegaly, rebound, tenderness Extremities exam: ABSENT: calf tenderness, clubbing, pedal edema Neurological exam: PRESENT: alert, awake, oriented to person, oriented to place , oriented to time, oriented to situation, CN II-XII grossly intact. ABSENT: motor sensory deficit Psychiatric exam: PRESENT: appropriate affect Skin exam: PRESENT: dry, intact, warm. ABSENT: cyanosis, rash Results Laboratory Results: 02/26/17 06:03 02/26/17 06:03 02/26/17 02/26/17 06:03 06:03 WBC 8.3 RBC 4.20 L Hgb 14.3 Hct 41.8 MCV 100 H MCH 34.1 H MCHC 34.2 RDW 13.9 Plt Count 222 Seg Neutrophils % 59.3 Lymphocytes % 24.2 Monocytes % 13.0 Eosinophils % 2.5 Basophils % 1.0 Absolute Neutrophils 4.9 Absolute Lymphocytes 2.0 Absolute Monocytes 1.1 Absolute Eosinophils 0.2 Absolute Basophils 0.1 Sodium 139.3 Potassium 4.2 Chloride 103 Carbon Dioxide 27 Anion Gap 9 BUN 16 Creatinine 0.64 Est GFR ( Amer) > 60 Est GFR (Non-Af Amer) > 60 Glucose 85 Calcium 9.0 02/24/17 11:55 Biopsy Fungal Smear - Final 02/24/17 11:55 Biopsy Fungal Smear - Final 02/24/17 11:55 Biopsy AFB Smear Concentration - Final 02/24/17 11:55 Biopsy Acid Fast Bacilli Smear - Final Impressions: Chest Tube Insertion 02/24/17 00:00 IMPRESSION: SUCCESSFUL CT GUIDED LEFT CHEST TUBE PLACEMENT. Guidance Needle Placement CT 02/24/17 00:00 IMPRESSION: CT GUIDED BIOPSY OF THE LEFT LOWER LOBE MASS PATHOLOGY PENDING. Lung Biopsy CT 02/24/17 00:00 IMPRESSION: CT GUIDED BIOPSY OF THE LEFT LOWER LOBE MASS PATHOLOGY PENDING. Chest X-Ray 02/26/17 06:00 IMPRESSION: No left pneumothorax post lung biopsy on 02/24/2017. Qualifiers PATEINT BEING DISCHARGED WITH ANY OF THE FOLLOWING DIAGNOSIS?: No Plan Discharge Plan: Patient will follow up with primary care in 2 weeks. Patient will be followed by the medications health nurse from [facility]. He is being sent home on 4 drug therapy for presumed tuberculosis. Time Spent: Greater than 30 Minutes
== END 2017-02-26 14:15 | disposition home or self-care (01) | DRG 200 ==
LOC: RAD 08:54 → 5 13:05 → UNDOADMOB 13:05 → 5 16:23 → OBSVTOIN 16:38 → 3S 02-25 17:07
PROC: 0BBJ3ZX Excision of Left Lower Lung Lobe, Percutaneous Approach, Diagnostic (ICD-10-PCS; principal; 2017-02-24)
PROC: BB28ZZZ Computerized Tomography (CT Scan) of Left Tracheobronchial Tree (ICD-10-PCS; 2017-02-24)
PROC: 0W9B30Z Drainage of Left Pleural Cavity with Drainage Device, Percutaneous Approach (ICD-10-PCS; 2017-02-24)
PROC: 3E0234Z Introduction of Serum, Toxoid and Vaccine into Muscle, Percutaneous Approach (ICD-10-PCS; 2017-02-26)
DX: J95.811 Postprocedural pneumothorax (principal); J96.11 Chronic respiratory failure with hypoxia; A15.9 Respiratory tuberculosis unspecified; Y92.234 Operating room of hospital as the place of occurrence of the external cause; Y84.8 Other medical procedures as the cause of abnormal reaction of the patient, or of later complication, without mention of misadventure at the time of the procedure; R91.8 Other nonspecific abnormal finding of lung field; E78.5 Hyperlipidemia, unspecified; J44.9 Chronic obstructive pulmonary disease, unspecified; I71.4 Abdominal aortic aneurysm, without rupture; G89.4 Chronic pain syndrome; G40.909 Epilepsy, unspecified, not intractable, without status epilepticus; F32.9 Major depressive disorder, single episode, unspecified; F17.210 Nicotine dependence, cigarettes, uncomplicated; Z99.81 Dependence on supplemental oxygen; Z23 Encounter for immunization
CPT/HCPCS: 32405; 32551; 36415; 36600; 71010; 71020; 77012; 80048; 82565; 82803; 84520; 85025; 85027; 85610; 85730; 87015; 87101; 87116; 87206; 88305; 88312; 88342; 90686; 94640; C1729; C1769; C1894; G0378; J1650; J2250; J2270; J3010; J3490; J7512; J7620

== ENCOUNTER → 2017-03-17 | Outpatient (CLI) | payer MEDICAID ==
--- NOTE | 2017-03-17 15:18 | RADIOLOGY REPORT (SQ) ---
EXAM DESCRIPTION: CHEST PA/LATERAL COMPLETED DATE/TIME: 03/17/2017 2:48 pm REASON FOR STUDY: POSTPROCEDURAL PNEUMOTHORAX COMPARISON: 02/26/2017 EXAM PARAMETERS: NUMBER OF VIEWS: two views TECHNIQUE: Digital Frontal and Lateral radiographic views of the chest acquired. RADIATION DOSE: NA LIMITATIONS: none FINDINGS: LUNGS AND PLEURA: There is slightly increased opacification extending superolaterally from the left hilum. MEDIASTINUM AND HILAR STRUCTURES: No masses or contour abnormalities. HEART AND VASCULAR STRUCTURES: Heart normal size. No evidence for failure. BONES: No acute findings. HARDWARE: None in the chest. OTHER: No other significant finding. IMPRESSION: Left upper lobe pneumonia. TECHNICAL DOCUMENTATION: JOB ID: [id number] [employer]- All Rights Reserved
== END ==
LOC: OD 14:30
PROVIDERS: ATTEND Surgery
DX: J95.811 Postprocedural pneumothorax (principal)
CPT/HCPCS: 71020

== ENCOUNTER 2017-04-28 08:35 | Emergency (ER) | payer MEDICAID ==
--- NOTE | 2017-04-28 09:33 | ER Document Report ---
ED Medical Screen (RME) - General Mode of Arrival: Ambulatory Information source: Patient TRAVEL OUTSIDE OF THE [place] IN LAST 30 DAYS: No - General Chief Complaint: Cough Stated Complaint: LUNG PAIN DIARRHEA UNABLE TO SLEEP Time Seen by Provider: 04/28/17 09:13 Notes: Patient is a 51 year old male with a history of COPD presents to the emergency department with worsening left chest pain and shortness of breath. Patient also complains of diarrhea. Patient was recently diagnosed with TOY (Mycobacterium). Patient is currently on antibiotics. Breath sounds decreased bilaterally with mild expiratory wheezing, slight splinting. I have greeted and performed a rapid initial assessment of this patient. A comprehensive ED assessment and evaluation of the patient, analysis of test results and completion of the medical decision making process will be conducted by additional ED providers. (BASIA MCKEON) - Related Data Allergies/Adverse Reactions: Penicillins Allergy (Verified 04/28/17 08:38) Home Medications: Current Home Medications Albuterol Sulfate [Proair HFA] 2 puff IH Q4 PRN 04/28/17 [History] Azithromycin [Azithromycin] 1 tab PO DAILY 04/28/17 [History] Cyanocobalamin (Vitamin B-12) [Vitamin B12] 1,500 mg PO DAILY 04/28/17 [History] Esomeprazole Magnesium [Nexium] 1 cap PO DAILY 04/28/17 [History] Ethambutol HCl [Myambutol 400 mg Tablet] 400 mg PO TID 04/28/17 [History] Glycopyrrolate/Formoterol Fum [Bevespi Aerosphere Inhaler] 2 puff IH BID [History] Multivitamin/Iron/Folic Acid [Centrum Adults Tablet] 1 tab PO DAILY 04/28/17 [ History] Rifampin [Rifadin 300 mg Capsule] 300 mg PO QPM 04/28/17 [History] Tizanidine HCl [Tizanidine HCl] 1 tab PO DAILY 04/28/17 [History] Past Medical History - Past Medical History Cardiac Medical History: Reports: Hx Hypercholesterolemia Denies: Hx Coronary Artery Disease, Hx Heart Attack, Hx Hypertension Pulmonary Medical History: Reports: Hx Asthma, Hx Bronchitis, Hx COPD, Hx Pneumonia, Hx Respiratory Failure - Oxygen dependent Neurological Medical History: Reports: Hx Seizures - 2007 put on seizure/ MEDICATED QHS. Denies: Hx Cerebrovascular Accident GI Medical History: Reports: Hx Gastroesophageal Reflux Disease. Denies: Hx Hepatitis, Hx Hiatal Hernia, Hx Ulcer Musculoskeltal Medical History: Reports Hx Arthritis Psychiatric Medical History: Reports: Hx Depression Infectious Medical History: Denies: Hx Hepatitis Past Surgical History: Reports: Other - Chest tube placement. Denies: Hx Open Heart Surgery, Hx Pacemaker - Immunizations Hx Diphtheria, Pertussis, Tetanus Vaccination: No History of Influenza Vaccine for 02/2017 - 07/2017 Season: No Influenza Administration Date for 02/2017 - 07/2017 Season: 02/17/16 - Vital signs Vitals: Temp Pulse Resp BP Pulse Ox 97.8 F 92 24 H 109/72 95 04/28/17 08:46 04/28/17 08:46 04/28/17 08:46 04/28/17 08:46 04/28/17 08:46 - Vital Signs Vital signs: Temp Pulse Resp BP Pulse Ox 97.8 F 92 24 H 109/72 95 04/28/17 08:46 04/28/17 08:46 04/28/17 08:46 04/28/17 08:46 04/28/17 08:46
[2017-04-28 10:08] LABS: ABSOLUTE BASOPHILS # (AUTO) 0.1 10^3/uL (0.0-0.2); ABSOLUTE EOSINOPHILS # (AUTO) 0.4 10^3/uL (0.0-0.6); ABSOLUTE MONOCYTES (AUTO) 1.1 10^3/uL (0.1-1.4); ABSOLUTE NEUT (AUTO) 6.4 10^3/uL (1.7-8.2); BASOPHILS % (AUTO) 0.8 % (0-2); EOSINOPHILS % (AUTO) 3.6 % (0-6); HEMATOCRIT 45.3 % (37.9-51.0); HEMOGLOBIN 15.4 g/dL (13.5-17.0); HGB HCT DIFFERENCE 0.9; LYMPHOCYTES % (AUTO) 19.8 % (13-45); MEAN CORPUSCULAR HEMOGLOBIN 33.3 pg (27.0-33.4); MEAN CORPUSCULAR HGB CONC 34.1 g/dL (32.0-36.0); MEAN CORPUSCULAR VOLUME 98 fl (80-97); MONOCYTES % (AUTO) 10.9 % (3-13); RED BLOOD COUNT 4.64 10^6/uL (4.35-5.55); RED CELL DISTRIBUTION WIDTH 13.6 % (11.5-14.0); SEGMENTED NEUTROPHILS % (AUTO) 64.9 % (42-78); WHITE BLOOD COUNT 9.9 10^3/uL (4.0-10.5)
--- NOTE | 2017-04-28 10:13 | RADIOLOGY REPORT (SQ) ---
EXAM DESCRIPTION: CHEST PA/LAT COMPLETED DATE/TIME: 04/28/2017 9:47 am REASON FOR STUDY: Lt CP/Dyspnea/ Hx of Mycobacter (TOY) COMPARISON: 02/26/2017 EXAM PARAMETERS: NUMBER OF VIEWS: two views TECHNIQUE: Digital Frontal and Lateral radiographic views of the chest acquired. RADIATION DOSE: NA LIMITATIONS: none FINDINGS: LUNGS AND PLEURA: Known left lower lung mass not significantly changed. No pneumothorax. MEDIASTINUM AND HILAR STRUCTURES: No masses or contour abnormalities. HEART AND VASCULAR STRUCTURES: Heart normal size. No evidence for failure. BONES: No acute findings. HARDWARE: None in the chest. OTHER: No other significant finding. IMPRESSION: No significant change. No acute findings. TECHNICAL DOCUMENTATION: JOB ID: [id number] [employer]- All Rights Reserved
--- NOTE | 2017-04-28 10:14 | ER Document Report ---
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 pt notes he ran out of his oxycodone and wont get any until tomorrow. pt denies any fevers or chills. denies any vomiting but admits to nausea and diarrhea . pt seen by Dr Gaspar 1 month ago TRAVEL OUTSIDE OF THE [place] IN LAST 30 DAYS: No - HPI Onset: Other Onset/Duration: Persistent Quality of pain: Achy Severity: Mild Pain Level: 1 Associated symptoms: Nonproductive cough, Shortness of breath Exacerbated by: Denies Relieved by: Denies Similar symptoms previously: Yes Recently seen / treated by doctor: Yes - Related Data Allergies/Adverse Reactions: Penicillins Allergy (Verified 04/28/17 08:38) Home Medications: Current Home Medications Albuterol Sulfate [Proair HFA] 2 puff IH Q4 PRN 04/28/17 [History] Azithromycin [Azithromycin] 1 tab PO DAILY 04/28/17 [History] Cyanocobalamin (Vitamin B-12) [Vitamin B12] 1,500 mg PO DAILY 04/28/17 [History] Esomeprazole Magnesium [Nexium] 1 cap PO DAILY 04/28/17 [History] Ethambutol HCl [Myambutol 400 mg Tablet] 400 mg PO TID 04/28/17 [History] Glycopyrrolate/Formoterol Fum [Bevespi Aerosphere Inhaler] 2 puff IH BID [History] Multivitamin/Iron/Folic Acid [Centrum Adults Tablet] 1 tab PO DAILY 04/28/17 [ History] Rifampin [Rifadin 300 mg Capsule] 300 mg PO QPM 04/28/17 [History] Tizanidine HCl [Tizanidine HCl] 1 tab PO DAILY 04/28/17 [History] Past Medical History - General Information source: Patient - Social History Smoking Status: Current Every Day Smoker Cigarette use (# per day): Yes Chew tobacco use (# tins/day): No Smoking Education Provided: No Frequency of alcohol use: None Drug Abuse: None Family History: CAD, Other - COPD -father Patient has suicidal ideation: No Patient has homicidal ideation: No - Past Medical History Cardiac Medical History: Reports: Hx Hypercholesterolemia Denies: Hx Coronary Artery Disease, Hx Heart Attack, Hx Hypertension Pulmonary Medical History: Reports: Hx Asthma, Hx Bronchitis, Hx COPD, Hx Pneumonia, Hx Respiratory Failure - Oxygen dependent Neurological Medical History: Reports: Hx Seizures - 2008 put on seizure/ MEDICATED QHS. Denies: Hx Cerebrovascular Accident Renal/ Medical History: Denies: Hx Peritoneal Dialysis GI Medical History: Reports: Hx Gastroesophageal Reflux Disease. Denies: Hx Hepatitis, Hx Hiatal Hernia, Hx Ulcer Musculoskeltal Medical History: Reports Hx Arthritis Psychiatric Medical History: Reports: Hx Depression Infectious Medical History: Denies: Hx Hepatitis Past Surgical History: Reports: Other - Chest tube placement. Denies: Hx Open Heart Surgery, Hx Pacemaker - Immunizations Hx Diphtheria, Pertussis, Tetanus Vaccination: No Hx Pneumococcal Vaccination: 02/17/16 Review of Systems - Review of Systems Notes: REVIEW OF SYSTEMS: CONSTITUTIONAL : Denies fever, chills, or sweats. Denies recent illness. EENT: Denies eye, ear, throat, or mouth pain or symptoms. Denies nasal or sinus congestion or discharge. Denies throat, tongue, or mouth swelling or difficulty swallowing. CARDIOVASCULAR: Denies chest pain. Denies palpitations or racing or irregular heart beat. Denies ankle edema. RESPIRATORY: admits to left sided pain with breathing GASTROINTESTINAL: Denies abdominal pain or distention. Denies nausea, vomiting , or diarrhea. Denies blood in vomitus, stools, or per rectum. Denies black, tarry stools. Denies constipation. GENITOURINARY: Denies difficulty urinating, painful urination, burning, frequency, blood in urine, or discharge. MUSCULOSKELETAL: Denies back or neck pain or stiffness. Denies joint pain or swelling. SKIN: Denies rash, lesions or sores. HEMATOLOGIC : Denies easy bruising or bleeding. LYMPHATIC: Denies swollen, enlarged glands. NEUROLOGICAL: Denies confusion or altered mental status. Denies passing out or loss of consciousness. Denies dizziness or lightheadedness. Denies headache. Denies weakness or paralysis or loss of use of either side. Denies problems with gait or speech. Denies sensory loss, numbness, or tingling. Denies seizures. PSYCHIATRIC: Denies anxiety or stress. Denies depression, suicidal ideation, or homicidal ideation. ALL OTHER SYSTEMS REVIEWED AND NEGATIVE. Dictation was performed using [employer] voice recognition software PHYSICAL EXAMINATION: GENERAL: Well-appearing, well-nourished and in no acute distress. HEAD: Atraumatic, normocephalic. EYES: Pupils equal round and reactive to light, extraocular movements intact, sclera anicteric, conjunctiva are normal. ENT: Nares patent, oropharynx clear without exudates. Moist mucous membranes. NECK: Normal range of motion, supple without lymphadenopathy LUNGS: crackles and wheezing on inspiratory and expiratory HEART: Regular rate and rhythm without murmurs ABDOMEN: Soft, nontender, nondistended abdomen. No guarding, no rebound. No masses appreciated. Musculoskeletal: Normal range of motion, no pitting or edema. No cyanosis. NEUROLOGICAL: Cranial nerves grossly intact. Normal speech, normal gait. Normal sensory, motor exams PSYCH: Normal mood, normal affect. SKIN: Warm, Dry, normal turgor, no rashes or lesions noted. Physical Exam - Vital signs Vitals: Temp Pulse Resp BP Pulse Ox 97.8 F 92 24 H 109/72 95 04/28/17 08:46 04/28/17 08:46 04/28/17 08:46 04/28/17 08:46 04/28/17 08:46 Course - Re-evaluation Re-evalutation: 04/28/17 10:14 Dr Hubert styles , he states to keep patient on curent regiment and try toradol 04/28/17 14:47 It appears patient's presentation was secondary for pain control, he will be given 4 tablets of oxycodone at his request since he has a prescription tomorrow Otherwise he is in no significant distress pain was controlled with morphine and I will discharge home After performing a Medical Screening Examination, I estimate there is LOW risk for ACUTE CORONARY SYNDROME, PULMONARY EMBOLI, RESPIRATORY FAILURE, SEPSIS OR MENINGITIS, thus I consider the discharge disposition reasonable. I have reevaluated this patient multiple times and no significant life threatening changes are noted. The patient and I have discussed the diagnosis and risks, and we agree with discharging home with close follow-up. We also discussed returning to the Emergency Department immediately if new or worsening symptoms occur. We have discussed the symptoms which are most concerning (e.g., changing or worsening pain, trouble swallowing or breathing, neck stiffness, fever) that necessitate immediate return. - Vital Signs Vital signs: Temp Pulse Resp BP Pulse Ox 98.9 F 92 25 H 109/73 97 04/28/17 12:12 04/28/17 08:46 04/28/17 12:01 04/28/17 12:00 04/28/17 12:01 - Laboratory Result Diagrams: 04/28/17 09:54 04/28/17 09:54 Laboratory results interpreted by me: 04/28/17 04/28/17 09:54 09:54 MCV 98 H Alkaline Phosphatase 145 H - Diagnostic Test Radiology reviewed: Image reviewed, Reports reviewed Discharge - Discharge Clinical Impression: Pleurisy Pneumonia Qualifiers: Pneumonia type: due to unspecified organism Laterality: left Lung location: lower lobe of lung Qualified Code(s): J18.1 - Lobar pneumonia, unspecified organism Condition: Stable Disposition: HOME, SELF-CARE Instructions: Chest Wall Pain ([facility]) Prescriptions: Oxycodone HCl/Acetaminophen [Percocet 5-325 mg Tablet] 1 - 2 tab PO Q4H PRN #15 tablet PRN Reason: Referrals: MICAH PONCE MD [Primary Care Provider] - Follow up tomorrow
[2017-04-28] MEDS ORDERED: KETOROLAC TROMETHAMINE 60 MG/2 ML SDV IM ONE (10:15)
[2017-04-28] MEDS ORDERED: NORMAL SALINE 1000 ML 1,000 ML IV ONE (10:23)
[2017-04-28] MEDS ORDERED: KETOROLAC TROMETHAMINE INJ/PF 30 MG/1 ML SDV IV ONE (10:23)
[2017-04-28 10:24] LABS: ALANINE AMINOTRANSFERASE 26 U/L (21-72); ALKALINE PHOSPHATASE 145 U/L (38-126); ANION GAP 12 (5-19); ASPARTATE AMINO TRANSFERASE 17 U/L (17-59); BILIRUBIN,DIRECT 0.3 mg/dL (0.0-0.4); BILIRUBIN,TOTAL 0.4 mg/dL (0.2-1.3); BLOOD UREA NITROGEN 9 mg/dL (7-20); CALCIUM 9.1 mg/dL (8.4-10.2); CARBON DIOXIDE 26 mmol/L (22-30); CHLORIDE 105 mmol/L (98-107); GLUCOSE 89 mg/dL (75-110); POTASSIUM 4.3 mmol/L (3.6-5.0); SODIUM 142.7 mmol/L (137-145); TOTAL PROTEIN 6.8 g/dL (6.3-8.2)
[2017-04-28] MEDS ORDERED: MORPHINE SULFATE 10 MG/ML INJ IV ONE (11:32)
[2017-04-28 12:12] VITALS: BP 109/73
== END 2017-04-28 12:12 | disposition home or self-care (01) ==
LOC: ER 08:35
DX: R09.1 Pleurisy (principal); J18.1 Lobar pneumonia, unspecified organism; R19.7 Diarrhea, unspecified; F17.210 Nicotine dependence, cigarettes, uncomplicated; Z88.0 Allergy status to penicillin; E78.00 Pure hypercholesterolemia, unspecified
CPT/HCPCS: 99284; 96361; 96374; 96375; 36415; 85025; 80053; 71020; J1885; J2270; J7030

== ENCOUNTER → 2017-07-22 | Outpatient (CLI) | payer MEDICAID ==
[2017-07-22 11:06] LABS: ABSOLUTE BASOPHILS # (AUTO) 0.1 10^3/uL (0.0-0.2); ABSOLUTE EOSINOPHILS # (AUTO) 0.2 10^3/uL (0.0-0.6); ABSOLUTE LYMPHOCYTES (AUTO) 2.2 10^3/uL (0.5-4.7); ABSOLUTE MONOCYTES (AUTO) 1.2 10^3/uL (0.1-1.4); ABSOLUTE NEUT (AUTO) 4.7 10^3/uL (1.7-8.2); BASOPHILS % (AUTO) 0.7 % (0-2); EOSINOPHILS % (AUTO) 2.6 % (0-6); HEMATOCRIT 43.6 % (37.9-51.0); HEMOGLOBIN 14.9 g/dL (13.5-17.0); LYMPHOCYTES % (AUTO) 25.8 % (13-45); MEAN CORPUSCULAR HEMOGLOBIN 32.5 pg (27.0-33.4); MEAN CORPUSCULAR HGB CONC 34.2 g/dL (32.0-36.0); MEAN CORPUSCULAR VOLUME 95 fl (80-97); MONOCYTES % (AUTO) 14.7 % (3-13); PLATELET COUNT 237 10^3/uL (150-450); RED BLOOD COUNT 4.59 10^6/uL (4.35-5.55); RED CELL DISTRIBUTION WIDTH 13.4 % (11.5-14.0); SEGMENTED NEUTROPHILS % (AUTO) 56.2 % (42-78); TOTAL CELLS COUNTED % (AUTO) 100 %; WHITE BLOOD COUNT 8.3 10^3/uL (4.0-10.5)
--- NOTE | 2017-07-22 11:23 | RADIOLOGY REPORT (SQ) ---
EXAM DESCRIPTION: CHEST PA/LATERAL COMPLETED DATE/TIME: 07/22/2017 10:09 am REASON FOR STUDY: COUGH R05 COUGH COMPARISON: 04/28/2017 NUMBER OF VIEWS: Two view TECHNIQUE: Frontal and lateral radiographic images of the chest acquired. LIMITATIONS: None. FINDINGS: LUNGS AND PLEURA: Left pulmonary nodules. Superior segment left lower lobe mass not signi ficantly changed. No effusions. COPD. No new nodules are identified. MEDIASTINUM AND HILAR STRUCTURES: Stable heart size and mediastinal structures. HEART AND VASCULAR STRUCTURES: Stable appearance. BONES: No acute findings. HARDWARE: None in the chest. OTHER: No other significant finding. IMPRESSION: Known pulmonary nodules and left lower lobe mass. No significant change. TECHNICAL DOCUMENTATION: JOB ID: [id number] [employer]- All Rights Reserved Reading location - IP/workstation name: [email or web address]
== END ==
LOC: OD 09:50
PROVIDERS: ATTEND Physician Assistant
DX: R05 Cough (principal); R91.8 Other nonspecific abnormal finding of lung field
CPT/HCPCS: 36415; 71046; 85025

== ENCOUNTER → 2017-07-29 | Outpatient (CLI) | payer MEDICAID ==
--- NOTE | 2017-07-29 20:09 | RADIOLOGY REPORT (SQ) ---
EXAM DESCRIPTION: CT CHEST WITHOUT COMPLETED DATE/TIME: 07/29/2017 2:46 pm REASON FOR STUDY: SARCOIDOSIS D86.0 SARCOIDOSIS OF LUNG COMPARISON: Chest radiograph 07/22/2017 TECHNIQUE: CT scan performed of the chest without intravenous contrast. Images reviewed with lung, soft tissue and bone windows. Reconstructed coronal and sagittal MPR images reviewed. All images st ored on PACS. All CT scanners at this facility use dose modulation, iterative reconstruction, and/or weight based d osing when appropriate to reduce radiation dose to as low as reasonably achievable (ALARA). [facility]: Dose Right [facility]: CareDose [facility]: Dose Right [facility]: Teradose 4D [facility]: Smart Better Bean RADIATION DOSE: CT Rad equipment meets quality standard of care and radiation dose reduction techniq ues were employed. CTDIvol: 4.9 mGy. DLP: 208 mGy-cm. mGy. LIMITATIONS: No technical limitations. FINDINGS: LUNGS AND PLEURA: Centrilobular emphysematous changes are present. What appears to be sca rring is seen in the left upper lobe. This extends from the hilum. On image 35 series 4 this and 8 mm nodule in the left lung posterior medially. This is noncalcified. A 7 mm noncalcified nodule is seen the medial posterior left lung on image 46 series 4. On image 49 series 4 there is a 15 mm nodu le in the left lower lobe. This is contiguous with the larger mass measuring 33 mm in largest diamet er. This is seen best on image 54. On image 55 there is a 10 mm nodule in the left lung. HILAR AND MEDIASTINAL STRUCTURES: No identified masses or abnormal nodes. No obvious aneurysm. HEART AND VASCULAR STRUCTURES: No aneurysm. No pericardial effusion. UPPER ABDOMEN: No significant findings. Limited exam. THYROID AND OTHER SOFT TISSUES: No masses. No adenopathy. BONES: No significant finding. HARDWARE: None in the chest. OTHER: No other significant findings. IMPRESSION: Pulmonary emphysema. Left pulmonary scarring and nodularity as described. The nodules are noncalcified nonspecific. Neoplasm cannot be excluded, but apparently biopsies were done earlier . TECHNICAL DOCUMENTATION: JOB ID: [id number] Quality ID # [id number]: Final reports with documentation of one or more dose reduction techniques (e.g., Au tomated exposure control, adjustment of the mA and/or kV according to patient size, use of iterative reconstruction technique) 2010 [employer]- All Rights Reserved Reading location - IP/workstation name: [email or web address]
== END ==
LOC: RAD 14:31
PROVIDERS: ATTEND Physician Assistant
DX: D86.0 Sarcoidosis of lung (principal)
CPT/HCPCS: 71250

== ENCOUNTER 2017-09-30 20:56 | Emergency (ER) | payer MEDICAID ==
[2017-09-30] MEDS ORDERED: IPRATROPIUM/ALBUTEROL 0.5-2.5 MG/3 ML AMPUL NEB ONE (21:40)
--- NOTE | 2017-09-30 21:40 | ER Document Report ---
ED Medical Screen (RME) - General Chief Complaint: Shortness Of Breath Stated Complaint: SHORTNESS OF BREATH Time Seen by Provider: 09/30/17 21:36 TRAVEL OUTSIDE OF THE [place] IN LAST 30 DAYS: No - HPI Notes: 09/30/17 21:36 Patient is a 51-year-old male with a history of COPD (on oxygen at night), chronic lung infection with Mycobacterium (he was told that it is not TB), chronic shoulder pain, and chronic back pain who presents to the ED complaining of chills, feverish, increased shortness of breath and wheezing that began today. Patient is currently on rifampin, ethambutol, and azithromycin every day since March. He is still eating and drinking without any difficulties. He is urinating normally and having normal bowel movements. Denies any recent or acute injuries. Patient does not have any chest pain. Denies any history of PE, PR, pneumothorax, dissection. Patient states that he cannot have any steroids on his medical regimen that he is on it is allergic to penicillins. He does have breathing treatments at home that he has been using as well. He is scheduled to see a pain doctor tomorrow for his shoulder and back pains. Denies any headache, neck pain, URI, sore throat, chest pain, palpitations, syncope, abdominal pain, nausea/vomiting/diarrhea, urinary retention, dysuria, hematuria, loss of control of bowel or bladder, numbness/tingling, saddle anesthesia, muscle paralysis/weakness, or rash. I have treated and performed a rapid initial assessment of this patient. A comprehensive ED assessment and evaluation of the patient, analysis of test results and completion of medical decision making process will be conducted by additional ED providers. PHYSICAL EXAMINATION: GENERAL: Well-appearing, well-nourished and in no acute distress. A&Ox4. Answers questions appropriately. On 2L O2 via NC. LUNGS: wheezing throughout. no retractions. speaking full sentences. HEART: Regular rate and rhythm without murmurs, rubs, gallops. Extremities: No cyanosis, clubbing, or edema b/l. NEUROLOGICAL: Normal speech, normal gait. PSYCH: Normal mood, normal affect. - Related Data Allergies/Adverse Reactions: Penicillins Allergy (Verified 04/28/17 08:38) Past Medical History - Past Medical History Cardiac Medical History: Reports: Hx Hypercholesterolemia Denies: Hx Coronary Artery Disease, Hx Heart Attack, Hx Hypertension Pulmonary Medical History: Reports: Hx Asthma, Hx Bronchitis, Hx COPD, Hx Pneumonia, Hx Respiratory Failure - Oxygen dependent Neurological Medical History: Reports: Hx Seizures - 2008 put on seizure/ MEDICATED QHS. Denies: Hx Cerebrovascular Accident Renal/ Medical History: Denies: Hx Peritoneal Dialysis GI Medical History: Reports: Hx Gastroesophageal Reflux Disease. Denies: Hx Hepatitis, Hx Hiatal Hernia, Hx Ulcer Musculoskeltal Medical History: Reports Hx Arthritis Psychiatric Medical History: Reports: Hx Depression Infectious Medical History: Denies: Hx Hepatitis Past Surgical History: Reports: Other - Chest tube placement. Denies: Hx Open Heart Surgery, Hx Pacemaker - Immunizations Hx Diphtheria, Pertussis, Tetanus Vaccination: No History of Influenza Vaccine for 02/2017 - 07/2017 Season: No Influenza Administration Date for 02/2017 - 07/2017 Season: 02/17/16 Physical Exam - Vital signs Vitals: Temp Pulse Resp BP Pulse Ox 97.9 F 77 16 128/73 H 96 09/30/17 21:27 09/30/17 21:27 09/30/17 21:27 09/30/17 21:27 09/30/17 21:27 Course - Vital Signs Vital signs: Temp Pulse Resp BP Pulse Ox 97.9 F 77 16 128/73 H 96 09/30/17 21:27 09/30/17 21:27 09/30/17 21:27 09/30/17 21:27 09/30/17 21:27
[2017-09-30 23:01] LABS: ABSOLUTE BASOPHILS # (AUTO) 0.1 10^3/uL (0.0-0.2); ABSOLUTE EOSINOPHILS # (AUTO) 0.2 10^3/uL (0.0-0.6); ABSOLUTE NEUT (AUTO) 3.6 10^3/uL (1.7-8.2); BASOPHILS % (AUTO) 0.8 % (0-2); EOSINOPHILS % (AUTO) 3.6 % (0-6); HEMATOCRIT 44.5 % (37.9-51.0); LYMPHOCYTES % (AUTO) 29.1 % (13-45); MEAN CORPUSCULAR HEMOGLOBIN 31.9 pg (27.0-33.4); MEAN CORPUSCULAR HGB CONC 33.7 g/dL (32.0-36.0); MEAN CORPUSCULAR VOLUME 95 fl (80-97); MONOCYTES % (AUTO) 15.1 % (3-13); PLATELET COUNT 221 10^3/uL (150-450); RED BLOOD COUNT 4.71 10^6/uL (4.35-5.55); RED CELL DISTRIBUTION WIDTH 14.4 % (11.5-14.0); SEGMENTED NEUTROPHILS % (AUTO) 51.4 % (42-78); TOTAL CELLS COUNTED % (AUTO) 100 %; WHITE BLOOD COUNT 6.9 10^3/uL (4.0-10.5)
[2017-09-30 23:13] LABS: ALANINE AMINOTRANSFERASE 19 U/L (21-72); ALBUMIN 4.2 g/dL (3.5-5.0); ALKALINE PHOSPHATASE 136 U/L (38-126); ANION GAP 11 (5-19); ASPARTATE AMINO TRANSFERASE 14 U/L (17-59); BILIRUBIN,DIRECT 0.3 mg/dL (0.0-0.4); BILIRUBIN,TOTAL 0.3 mg/dL (0.2-1.3); BLOOD UREA NITROGEN 13 mg/dL (7-20); CALCIUM 9.3 mg/dL (8.4-10.2); CARBON DIOXIDE 26 mmol/L (22-30); CHLORIDE 105 mmol/L (98-107); GLUCOSE 80 mg/dL (75-110); SODIUM 142.3 mmol/L (137-145); TOTAL PROTEIN 7.1 g/dL (6.3-8.2)
--- NOTE | 2017-09-30 23:17 | RADIOLOGY REPORT (SQ) ---
EXAM DESCRIPTION: CHEST 2 VIEWS COMPLETED DATE/TIME: 09/30/2017 10:17 pm REASON FOR STUDY: sob COMPARISON: None. EXAM PARAMETERS: NUMBER OF VIEWS: two views TECHNIQUE: Digital Frontal and Lateral radiographic views of the chest acquired. RADIATION DOSE: NA LIMITATIONS: none FINDINGS: LUNGS AND PLEURA: Similar confluent nodular opacities in the left upper lobe. No acute co nsolidation or pleural effusion. No pneumothorax. . MEDIASTINUM AND HILAR STRUCTURES: Stable. HEART AND VASCULAR STRUCTURES: Stable. BONES: No acute findings. HARDWARE: None in the chest. OTHER: No other significant finding. IMPRESSION: Similar confluent nodular opacities in the left upper lobe. No acute consolidation or p leural effusion. No pneumothorax. TECHNICAL DOCUMENTATION: JOB ID: [id number] [place]-72 2010 [employer]- All Rights Reserved Reading location - IP/workstation name: [email or web address]
[2017-10-01] MEDS ORDERED: IPRATROPIUM/ALBUTEROL 0.5-2.5 MG/3 ML AMPUL NEB ONE ×3 (00:23→03:01)
[2017-10-01] MEDS ORDERED: MAGNESIUM SULFATE/D5W 1 GM/100 ML RTUPB IV ONE (00:23)
[2017-10-01] MEDS ORDERED: HYDROMORPHONE HCL INJ/PF 2 MG/ML AMPULE IV ONE ×3 (00:24→03:01)
--- NOTE | 2017-10-01 00:25 | ER Document Report ---
ED General - General Chief Complaint: Shortness Of Breath Stated Complaint: SHORTNESS OF BREATH Time Seen by Provider: 09/30/17 21:36 Mode of Arrival: Ambulatory Information source: Patient Notes: This is a 51-year-old man with a history of COPD, Mycobacterium avium complex ( rifampin, ethambutol, azithromycin), chronic back pain. Patient presents to the emergency room wheezing, cough and back pain. TRAVEL OUTSIDE OF THE [place] IN LAST 30 DAYS: No - HPI Onset: This morning Onset/Duration: Gradual Quality of pain: Dull Severity: Moderate Pain Level: 3 Associated symptoms: Shortness of breath, Other - Neck pain. denies: Chest pain , Fever Exacerbated by: Movement Relieved by: Remaining still Similar symptoms previously: Yes Recently seen / treated by doctor: Yes - Related Data Allergies/Adverse Reactions: Penicillins Allergy (Verified 04/28/17 08:38) Past Medical History - General Information source: Patient - Social History Smoking Status: Former Smoker Cigarette use (# per day): No Chew tobacco use (# tins/day): No Smoking Education Provided: No Frequency of alcohol use: None Drug Abuse: None Lives with: Spouse/Significant other Family History: CAD, Other - COPD -father Patient has suicidal ideation: No Patient has homicidal ideation: No - Past Medical History Cardiac Medical History: Reports: Hx Hypercholesterolemia Denies: Hx Coronary Artery Disease, Hx Heart Attack, Hx Hypertension Pulmonary Medical History: Reports: Hx Asthma, Hx Bronchitis, Hx COPD, Hx Pneumonia, Hx Respiratory Failure - Oxygen dependent Neurological Medical History: Reports: Hx Seizures - 2008 put on seizure/ MEDICATED QHS. Denies: Hx Cerebrovascular Accident Renal/ Medical History: Denies: Hx Peritoneal Dialysis GI Medical History: Reports: Hx Gastroesophageal Reflux Disease. Denies: Hx Hepatitis, Hx Hiatal Hernia, Hx Ulcer Musculoskeltal Medical History: Reports Hx Arthritis Psychiatric Medical History: Reports: Hx Depression Infectious Medical History: Denies: Hx Hepatitis Past Surgical History: Reports: Other - Chest tube placement. Denies: Hx Open Heart Surgery, Hx Pacemaker - Immunizations Hx Diphtheria, Pertussis, Tetanus Vaccination: No Hx Pneumococcal Vaccination: 02/17/16 Review of Systems - Review of Systems Constitutional: denies: Chills, Fever EENT: No symptoms reported Cardiovascular: No symptoms reported Respiratory: See HPI, Short of breath, Wheezing Gastrointestinal: No symptoms reported Genitourinary: No symptoms reported Male Genitourinary: No symptoms reported Musculoskeletal: See HPI, Back pain Skin: No symptoms reported Hematologic/Lymphatic: No symptoms reported Neurological/Psychological: No symptoms reported. denies: Loss of power, Paralysis, Numbness Physical Exam - Vital signs Vitals: Temp Pulse Resp BP Pulse Ox 97.9 F 77 16 128/73 H 96 09/30/17 21:27 09/30/17 21:27 09/30/17 21:27 09/30/17 21:27 09/30/17 21:27 Notes: Physical exam: GENERAL: 51-year-old man, alert and oriented 3, does appear in distress ( complaining of back pain). She with audible wheezing. HEAD: Atraumatic, normocephalic. EYES: Pupils equal round and reactive to light, extraocular movements intact, sclera anicteric, conjunctiva are normal. ENT: TMs normal, nares patent, oropharynx clear without exudates. Moist mucous membranes. NECK: Normal range of motion, supple without obvious mass or JVD. LUNGS: Bilateral wheezing with accessory muscle use HEART: Regular rate and rhythm without murmurs, rubs or gallops. ABDOMEN: Soft, normoactive bowel sounds. No tenderness to palpation. No guarding, no rebound. No masses appreciated. EXTREMITIES: Normal range of motion, no pitting or edema. No clubbing or cyanosis. NEUROLOGICAL: Cranial nerves II through XII grossly intact. Normal speech, moving all extremities. PSYCH: Normal mood, normal affect. SKIN: Warm, Dry, normal turgor, no rashes or lesions noted. Course - Re-evaluation Re-evalutation: 10/01/17 03:23 Repeat exam: Patient is breathing much better. He seems much more comfortable. He does have an appointment later today with the pain specialist. 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 He was given albuterol and ipratropium nebulizers , IV magnesium for his COPD exacerbation. Steroids were not given due to his MAC. - Vital Signs Vital signs: Temp Pulse Resp BP Pulse Ox 97.9 F 83 19 130/75 H 93 09/30/17 21:27 10/01/17 03:31 10/01/17 03:31 10/01/17 03:31 10/01/17 03:31 - Laboratory Result Diagrams: 09/30/17 22:25 09/30/17 22:25 Laboratory results interpreted by me: 09/30/17 09/30/17 22:25 22:25 RDW 14.4 H Monocytes % 15.1 H AST 14 L ALT 19 L Alkaline Phosphatase 136 H - Diagnostic Test Radiology reviewed: Image reviewed, Reports reviewed - Chest x-ray shows similar confluent opacities without acute consolidation, effusions or pneumothorax. - EKG Interpretation by Me Rate: Normal Rhythm: NSR - EKG shows normal sinus rhythm with a ventricular rate of 77, no acute ST-T wave changes Discharge - Discharge Clinical Impression: COPD exacerbation, Exacerbation of low back pain Condition: Stable Disposition: HOME, SELF-CARE Additional Instructions: Thank you for choosing [facility] for your care. The examination and treatment you have received in the Emergency Department today has been rendered on an emergency basis only and is not intended to be a substitute for complete medical care. You should contact your doctor as it is important that she/he examine you for any new or remaining problems. If given a copy of any lab tests or radiology reports, please bring them with you when you see your physician. If your problem worsens or new symptoms appear and you are unable to arrange prompt follow-up care, return to the Emergency Department. Specific signs to look out for: Worsening shortness of breath, worsening pain, any concerns or getting worse. Any other instructions: Continue current medicines. Follow-up with your pulmonary doctor (Dr. Gaspar). Follow-up with your pain specialist as planned later today. Referrals: MANOLO GASPAR MD [Primary Care Provider] - Follow up as needed
[2017-10-01 03:33] VITALS: BP 130/75
--- NOTE | 2017-10-01 08:48 | EKG REPORT ---
SEVERITY:- ABNORMAL ECG - SINUS RHYTHM LAD, CONSIDER LEFT ANTERIOR FASCICULAR BLOCK BORDERLINE T ABNORMALITIES, ANT-LAT LEADS : Confirmed by: Dain Frias 01-Oct-2017 08:47:32
== END 2017-10-01 03:31 | disposition home or self-care (01) ==
LOC: ER 20:56
DX: J44.1 Chronic obstructive pulmonary disease with (acute) exacerbation (principal); M54.5 Low back pain; E78.00 Pure hypercholesterolemia, unspecified; Z88.0 Allergy status to penicillin; Z87.891 Personal history of nicotine dependence
CPT/HCPCS: 93005; 96376; 94640 ×2; 99285; 96375; 96365; 36415; 85025; 80053; 84484; 83880; 71046; 93010; J1170; J3475; J7620 ×2

== ENCOUNTER 2017-10-03 20:37 | Emergency (ER) | payer MEDICAID, OTHER ==
[2017-10-03] MEDS ORDERED: CLONIDINE 0.2 MG/24 HR PATCH.TDWK TD ONE (22:10)
[2017-10-03] MEDS ORDERED: GABAPENTIN 300 MG CAPSULE PO ONE (22:10)
--- NOTE | 2017-10-03 22:47 | ER Document Report ---
ED General - General Chief Complaint: withdrawal Stated Complaint: WITHDRAWAL Time Seen by Provider: 10/03/17 22:08 Notes: Patient is a 51-year-old male with a past medical history as recorded including chronic back pain with opiate dependence who presents with withdrawal from opiates. Patient reports that his last dose of opiate pain medication was at 1300 today as he is trying to wean off of the medications. He was seen by his pain management doctor and prescribed promethazine, diazepam, and clonidine to help wean off of the medications but notes that these are not helping with his symptoms. He describes a progressively worsening restlessness, insomnia, diffuse body aching as well as nausea. Nothing seemed to worsen his symptoms. He states this feels similar to when he has run out of medications in the past. The patient is adamant that he is simply trying to get off of his pain medications. He denies any additional medical concerns. TRAVEL OUTSIDE OF THE [place] IN LAST 30 DAYS: No - Related Data Allergies/Adverse Reactions: Penicillins Allergy (Verified 04/28/17 08:38) Past Medical History - General Information source: Patient - Social History Smoking Status: Current Every Day Smoker Chew tobacco use (# tins/day): No Frequency of alcohol use: None Drug Abuse: None Lives with: Family Family History: CAD, Other - COPD -father Patient has suicidal ideation: No Patient has homicidal ideation: No - Past Medical History Cardiac Medical History: Reports: Hx Hypercholesterolemia Denies: Hx Coronary Artery Disease, Hx Heart Attack, Hx Hypertension Pulmonary Medical History: Reports: Hx Asthma, Hx Bronchitis, Hx COPD, Hx Pneumonia, Hx Respiratory Failure - Oxygen dependent Neurological Medical History: Reports: Hx Seizures - 2008 put on seizure/ MEDICATED QHS. Denies: Hx Cerebrovascular Accident Renal/ Medical History: Denies: Hx Peritoneal Dialysis GI Medical History: Reports: Hx Gastroesophageal Reflux Disease. Denies: Hx Hepatitis, Hx Hiatal Hernia, Hx Ulcer Musculoskeltal Medical History: Reports Hx Arthritis Psychiatric Medical History: Reports: Hx Depression Infectious Medical History: Denies: Hx Hepatitis Past Surgical History: Reports: Other - Chest tube placement. Denies: Hx Open Heart Surgery, Hx Pacemaker - Immunizations Hx Diphtheria, Pertussis, Tetanus Vaccination: No Hx Pneumococcal Vaccination: 02/17/16 Review of Systems - Review of Systems Notes: Constitutional: Negative for fever. HENT: Negative for sore throat. Eyes: Negative for visual changes. Cardiovascular: Negative for chest pain. Respiratory: Negative for shortness of breath. Gastrointestinal: Negative for abdominal pain, positive for nausea Genitourinary: Negative for dysuria. Musculoskeletal: Positive for body aches Skin: Negative for rash. Neurological: Negative for headaches, weakness or numbness. 10 point ROS negative except as marked above and in HPI. Physical Exam - Vital signs Vitals: Temp Pulse BP Pulse Ox 97.8 F 82 114/74 97 10/03/17 20:58 10/03/17 20:58 10/03/17 20:58 10/03/17 20:58 Interpretation: Normal Notes: PHYSICAL EXAMINATION: GENERAL: Appears uncomfortable but in no acute distress HEAD: Atraumatic, normocephalic. EYES: Pupils equal round and reactive to light, extraocular movements intact, sclera anicteric, conjunctiva are normal. ENT: nares patent, oropharynx clear without exudates. Moist mucous membranes. NECK: Normal range of motion, supple without lymphadenopathy LUNGS: Breath sounds clear to auscultation bilaterally and equal. No wheezes rales or rhonchi. HEART: Regular rate and rhythm without murmurs ABDOMEN: Soft, nontender, normoactive bowel sounds. No guarding, no rebound. No masses appreciated. EXTREMITIES: Normal range of motion, no pitting or edema. No cyanosis. NEUROLOGICAL: No focal neurological deficits. Moves all extremities spontaneously and on command. PSYCH: Patient in the room, highly anxious SKIN: Warm, Dry, normal turgor, no rashes or lesions noted. Course - Re-evaluation Re-evalutation: 10/03/17 22:45 Patient presents in acute opiate withdrawal after wanting to self discontinue off opiates that are being prescribed to him. He presents with signs and symptoms most consistent with acute opiate withdrawal including restlessness, agitation nausea and insomnia. No indication for labs or imaging. Patient has been started on clonidine patch as well as gabapentin for withdrawals. I have encouraged him to consider following up at [facility] for Suboxone therapy. He denies any additional acute medical complaints. His medical screening exam is unremarkable. At this time will discharge with return precautions and follow-up recommendations. Verbal discharge instructions given a the bedside and opportunity for questions given. Medication warnings reviewed. Patient is in agreement with this plan and has verbalized understanding of return precautions and the need for primary care follow-up in the next 24-72 hours. - Vital Signs Vital signs: Temp Pulse Resp BP Pulse Ox 97.6 F 73 18 124/72 98 10/03/17 23:05 10/03/17 23:05 10/03/17 23:05 10/03/17 23:05 10/03/17 23:05 Discharge - Discharge Clinical Impression: Opiate withdrawal, Opiate dependence, continuous Condition: Stable Disposition: HOME, SELF-CARE Additional Instructions: Your seen today for concerns of withdrawing from opiates. Opiate withdrawal is very uncomfortable but is not dangerous. The acute withdrawal phase will last for approximately 1 week and will consist of body aches, headache, nausea, vomiting, diarrhea, and abdominal pain. Sleeping can be difficult. You may also feel depressed or anxious. After the acute withdrawal is finished, it is very common to have chronic opiate withdrawal that can last for months. This can consist of feeling depressed and having cravings for opiates. I strongly encourage you to enroll in an outpatient rehab program and consider going on a medication such as Suboxone to prevent relapse. To help manage your acute withdrawal symptoms your are being sent home with a clonidine patch on. You may keep this patch on for up to 1 week. You have also been sent home with a prescription for a medication called gabapentin. You may take 300 mg 3 times daily again to assist with sleep and withdrawal symptoms. Please return if you become suicidal, have persistent vomiting that prevents you from being able to take fluids for more than 12 hours, you pass out, or you have any other symptoms that are worrisome to you. Prescriptions: Gabapentin 300 mg PO TID #60 capsule Referrals: RAYMOND PONCE PA-C [Primary Care Provider] - Follow up as needed
[2017-10-03] MEDS ORDERED: CLONIDINE 0.1 MG/24 HR PATCH.TDWK TD ONE (22:50)
[2017-10-03 23:07] VITALS: BP 124/72
== END 2017-10-03 23:05 | disposition home or self-care (01) ==
LOC: ER 20:37
DX: F11.23 Opioid dependence with withdrawal (principal); G89.29 Other chronic pain; M54.9 Dorsalgia, unspecified; F17.200 Nicotine dependence, unspecified, uncomplicated
CPT/HCPCS: 99284; J3490 ×2

== ENCOUNTER → 2017-10-30 | Outpatient (CLI) | payer MEDICAID ==
--- NOTE | 2017-10-30 15:39 | RADIOLOGY REPORT (SQ) ---
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 Images reviewed with lung, soft tissue and bone windows. Reconstructed coronal and sagittal MPR images reviewed. All images st ored on PACS. All CT scanners at this facility use dose modulation, iterative reconstruction, and/or weight based d osing when appropriate to reduce radiation dose to as low as reasonably achievable (ALARA). [facility]: Dose Right [facility]: CareDose [facility]: Dose Right [facility]: Teradose 4D [facility]: [employer] RADIATION DOSE: CT Rad equipment meets quality standard of care and radiation dose reduction techniq ues were employed. CTDIvol: 5.8 mGy. DLP: 250 mGy-cm. mGy. LIMITATIONS: No technical limitations. FINDINGS: LUNGS AND PLEURA: Patient has diffuse obstructive lung disease with enlarged airspaces and hyperlucency/hyperinflation. The previously biopsied cavitary mass in the right lower lobe on image 57 measures 3.8 x 2.4 cm in si ze. This is unchanged from 01/29/2018, and 01/31/2017. This was 1.8 x 1 cm on 04/19/2016. Biopsy of t his mass 02/24/2017 yielded a diagnosis of necrotic material with fibroblastic response, and M. avium complex determined by DNA probe. There is a 1.6 cm nodule along the posterior edge of the major fissure on axial image 51 which is unc hanged compared to 07/19/2017 and new compared to 06/02/2016. There are left lung nodules which are either stable in size or smaller as compared to studies dating back to 2014 as follows: 8 mm smooth round nodule posterior left upper lobe image 35 9 mm nodule with lobular borders superior segment left lower lobe image 46 12 mm smooth round nodule superior segment left lower lobe image 68 14 mm smooth oval nodule lateral left lower lobe image 58 11 mm oval smooth nodule anterior segment left lower lobe image 68 HILAR AND MEDIASTINAL STRUCTURES: No identified masses or abnormal nodes. No obvious aneurysm. HEART AND VASCULAR STRUCTURES: No aneurysm. No pericardial effusion. Moderate coronary artery calci fication. UPPER ABDOMEN: No significant findings. Limited exam. THYROID AND OTHER SOFT TISSUES: No masses. No adenopathy. BONES: No significant finding. HARDWARE: None in the chest. OTHER: No other significant findings. IMPRESSION: No change compared to 07/29/[address] TECHNICAL DOCUMENTATION: JOB ID: [id number] Quality ID # [id number]: Final reports with documentation of one or more dose reduction techniques (e.g., Au tomated exposure control, adjustment of the mA and/or kV according to patient size, use of iterative reconstruction technique) 2010 [employer] All Rights Reserved Reading location - IP/workstation name: [email or web address]
== END ==
LOC: RAD 09:24
PROVIDERS: ATTEND Physician Assistant
DX: D86.0 Sarcoidosis of lung (principal)
CPT/HCPCS: 71250

== ENCOUNTER → 2017-11-21 | Outpatient (CLI) | payer MEDICAID | LOC: OD 11:34 | PROVIDERS: ATTEND Internal Medicine Pulmonary Disease | DX: B40.9 Blastomycosis, unspecified (principal) | CPT/HCPCS: 36415; 86698 ==

== ENCOUNTER → 2018-04-06 | Outpatient (CLI) | payer MEDICAID ==
--- NOTE | 2018-04-06 14:19 | RADIOLOGY REPORT (SQ) ---
EXAM DESCRIPTION: CT CHEST WITHOUT COMPLETED DATE/TIME: 04/06/2018 9:45 am REASON FOR STUDY: MULTIPLE PULMONARY NODULES (R91.8) R91.8 OTHER NONSPECIFIC ABNORMAL FINDING OF HEIDY NG FIELD COMPARISON: 10/30/2017 and 07/29/2017. TECHNIQUE: CT scan performed of the chest without intravenous contrast. Images reviewed with lung, soft tissue and bone windows. Reconstructed coronal and sagittal MPR images reviewed. All images st ored on PACS. All CT scanners at this facility use dose modulation, iterative reconstruction, and/or weight based d osing when appropriate to reduce radiation dose to as low as reasonably achievable (ALARA). [facility]: Dose Right [facility]: CareDose [facility]: Dose Right [facility]: Teradose 4D [facility]: Smart Jimmy [employer] RADIATION DOSE: CT Rad equipment meets quality standard of care and radiation dose reduction techniq ues were employed. CTDIvol: 8.0 mGy. DLP: 348 mGy-cm. mGy. LIMITATIONS: No technical limitations. FINDINGS: LUNGS AND PLEURA: Emphysematous changes. No pleural effusion or pleural calcification. P artially cavitary mass in the left lower lobe currently measures 1.9 x 2.6 cm with prior measurement 2.4 x 3.8 cm. Adjacent nodular mass along the posterior to the major fissure currently measures 1.6 cm, unchanged. Other nodular masses are also unchanged or slightly smaller. 8 mm nodule left upper lobe (image 31) 7 mm nodule left lower lobe (image 43). Prior measurement 9 mm. 14 mm nodule lateral left lower lobe (image 53). 10 mm nodule anterior left lower lobe (image 63). HILAR AND MEDIASTINAL STRUCTURES: No identified masses or abnormal nodes. No obvious aneurysm. HEART AND VASCULAR STRUCTURES: No aneurysm. No pericardial effusion. UPPER ABDOMEN: No significant findings. Limited exam. THYROID AND OTHER SOFT TISSUES: No masses. No adenopathy. BONES: No significant finding. HARDWARE: None in the chest. OTHER: No other significant findings. IMPRESSION: CHRONIC EMPHYSEMATOUS CHANGES. THE PRIMARY LESION IN THE LEFT LOWER LOBE, PARTIALLY CAV ITARY, HAS DECREASED IN SIZE. OTHER NODULAR LESIONS IN THE LEFT LUNG ARE UNCHANGED OR SLIGHTLY SMALL ER. NO PROGRESSION AND NO NEW LESIONS. TECHNICAL DOCUMENTATION: JOB ID: [id number] Quality ID # [id number]: Final reports with documentation of one or more dose reduction techniques (e.g., Au tomated exposure control, adjustment of the mA and/or kV according to patient size, use of iterative reconstruction technique) 2010 [employer]- All Rights Reserved Reading location - IP/workstation name: [email or web address]
== END ==
LOC: RAD 09:16
PROVIDERS: ATTEND Internal Medicine Pulmonary Disease
DX: J43.9 Emphysema, unspecified (principal); R91.8 Other nonspecific abnormal finding of lung field
CPT/HCPCS: 71250

== ENCOUNTER 2018-06-12 16:39 | Emergency (ER) | payer MEDICAID ==
[2018-06-12] MEDS ORDERED: ONDANSETRON HCL INJ/PF 4 MG/2 ML SDV IV ONE (18:00)
[2018-06-12] MEDS ORDERED: METHYLPREDNISOLONE INJ 125 MG/2 ML SDV IV ONE (18:00)
[2018-06-12] MEDS ORDERED: HYDROCODONE/ACETAMINOPHEN 5-325 MG TABLET PO ONE (18:00)
[2018-06-12] MEDS ORDERED: NORMAL SALINE 1000 ML 1,000 ML IV ONE (18:00)
[2018-06-12] MEDS ORDERED: ALBUTEROL SULFATE 0.083% NEB 2.5 MG/3 ML AMPUL NEB ONE (18:01)
--- NOTE | 2018-06-12 18:51 | ER Document Report ---
Entered by MARIO BLANCO SCRIBE 06/12/181814 Acting as scribe for:NAYAN SOTO DO ED Medical Screen (RME) - General Chief Complaint: Abdominal Pain Stated Complaint: BACK/ABDOMINAL PAIN Time Seen by Provider: 06/12/18 17:53 Primary Care Provider: MANOLO ONEILL MD [Primary Care Provider] - Follow up as needed Notes: 52-year-old male who presents to the emergency department today with complaints of a painful rash across his abdomen and back, "lung pain", abdominal pain, vomiting, chills, and increased shortness of breath from his baseline. Patient states this rash has been there for approximately 2 weeks, he states it was diagnosed as shingles by his PCP and he was started on valacyclovir one week ago with no change. Patient states he has been vomiting for the last 2-3 days and has not eaten any food. Patient states he feels like the pain in his abdomen and his back is more from the rash and it is not coming from something internal. I have greeted and performed a rapid initial assessment of this patient. A comprehensive ED assessment and evaluation of the patient, analysis of test results, and completion of the medical decision making process will be conducted by additional ED providers. Review of systems: Constitutional: No symptoms reported EENT: No symptoms reported Cardiovascular: No symptoms reported Respiratory: Shortness of breath Gastrointestinal: Vomiting Genitourinary: No symptoms reported Musculoskeletal: Back pain Skin: Painful rash to abdomen/back Hematologic/Lymphatic: No symptoms reported Neurological/Psychological: No symptoms reported Yes All other systems reviewed and negative PHYSICAL EXAM GENERAL: Alert, appears short of breath, occasional pursed lip breathing, appears comfortable. HEAD: Normocephalic, atraumatic. EYES: Pupils equal, round, and reactive to light. Extraocular movements intact. ENT: Oral mucosa moist, tongue midline. NECK: Full range of motion. Supple. Trachea midline. LUNGS: Diffuse expiratory wheezing, poor air movement throughout. HEART: Regular rate and rhythm. No murmurs, gallops, or rubs. EXTREMITIES: Moves all 4 extremities spontaneously. NEUROLOGICAL: Alert and oriented x3. Normal speech. PSYCH: Normal affect, normal mood. SKIN: Nonvesicular, scabbed rash that crosses the midline in the lumbar region. Not dermatomal. The rash across the abdomen has a similar presentation and it is nonvesicular, crosses the midline, and not dermatomal. The rash on the abdomen extends from just below the umbilicus down to the belt line. TRAVEL OUTSIDE OF THE [place] IN LAST 30 DAYS: No - Related Data Allergies/Adverse Reactions: Penicillins Allergy (Verified 06/12/18 16:42) Past Medical History - Past Medical History Cardiac Medical History: Reports: Hx Hypercholesterolemia Denies: Hx Coronary Artery Disease, Hx Heart Attack, Hx Hypertension Pulmonary Medical History: Reports: Hx Asthma, Hx Bronchitis, Hx COPD, Hx Pneumonia, Hx Respiratory Failure - Oxygen dependent Neurological Medical History: Reports: Hx Seizures - 2008 put on seizure/MEDICATED QHS. Denies: Hx Cerebrovascular Accident Renal/ Medical History: Denies: Hx Peritoneal Dialysis GI Medical History: Reports: Hx Gastroesophageal Reflux Disease. Denies: Hx Hepatitis, Hx Hiatal Hernia, Hx Ulcer Musculoskeltal Medical History: Reports Hx Arthritis Psychiatric Medical History: Reports: Hx Depression Infectious Medical History: Denies: Hx Hepatitis Past Surgical History: Reports: Other - Chest tube placement. Denies: Hx Open Heart Surgery, Hx Pacemaker - Immunizations Hx Diphtheria, Pertussis, Tetanus Vaccination: No History of Influenza Vaccine for 02/2017 - 07/2017 Season: No Influenza Administration Date for 02/2017 - 07/2017 Season: 02/17/16 Physical Exam - Vital signs Vitals: Temp Pulse Resp BP Pulse Ox 97.6 F 94 16 139/84 H 97 06/12/18 16:46 06/12/18 16:46 06/12/18 16:46 06/12/18 16:46 06/12/18 16:46 Course - Vital Signs Vital signs: Temp Pulse Resp BP Pulse Ox 97.6 F 94 16 139/84 H 97 06/12/18 16:46 06/12/18 16:46 06/12/18 16:46 06/12/18 16:46 06/12/18 16:46 Doctor's Discharge - Discharge Referrals: MANOLO ONEILL MD [Primary Care Provider] - Follow up as needed I personally performed the services described in the documentation, reviewed and edited the documentation which was dictated to the scribe in my presence, and it accurately records my words and actions.
--- NOTE | 2018-06-12 19:04 | RADIOLOGY REPORT (SQ) ---
EXAM DESCRIPTION: CHEST 2 VIEWS COMPLETED DATE/TIME: 06/12/2018 6:39 pm REASON FOR STUDY: cough, wheeze, SOB COMPARISON: 09/30/2017 EXAM PARAMETERS: NUMBER OF VIEWS: two views TECHNIQUE: Digital Frontal and Lateral radiographic views of the chest acquired. RADIATION DOSE: NA LIMITATIONS: none FINDINGS: LUNGS AND PLEURA: There is some perihilar opacification on the left that appears stable. No acute pulmonary infiltrates. No pulmonary mass. No pleural effusion. MEDIASTINUM AND HILAR STRUCTURES: No masses or contour abnormalities. HEART AND VASCULAR STRUCTURES: Heart normal size. No evidence for failure. BONES: No acute findings. HARDWARE: None in the chest. OTHER: No other significant finding. IMPRESSION: Chronic lung changes with no acute cardiopulmonary findings. TECHNICAL DOCUMENTATION: JOB ID: [id number] [employer]- All Rights Reserved Reading location - IP/workstation name: [email or web address]
[2018-06-12 19:39] LABS: ABSOLUTE BASOPHILS # (AUTO) 0.1 10^3/uL (0.0-0.2); ABSOLUTE EOSINOPHILS # (AUTO) 0.3 10^3/uL (0.0-0.6); ABSOLUTE LYMPHOCYTES (AUTO) 2.8 10^3/uL (0.5-4.7); ABSOLUTE NEUT (AUTO) 6.6 10^3/uL (1.7-8.2); BASOPHILS % (AUTO) 0.8 % (0-2); EOSINOPHILS % (AUTO) 2.5 % (0-6); HEMATOCRIT 40.9 % (37.9-51.0); HEMOGLOBIN 14.5 g/dL (13.5-17.0); LYMPHOCYTES % (AUTO) 26.4 % (13-45); MEAN CORPUSCULAR HEMOGLOBIN 34.7 pg (27.0-33.4); MEAN CORPUSCULAR HGB CONC 35.5 g/dL (32.0-36.0); MEAN CORPUSCULAR VOLUME 98 fl (80-97); MONOCYTES % (AUTO) 9.1 % (3-13); PLATELET COUNT 356 10^3/uL (150-450); RED BLOOD COUNT 4.19 10^6/uL (4.35-5.55); RED CELL DISTRIBUTION WIDTH 15.1 % (11.5-14.0); SEGMENTED NEUTROPHILS % (AUTO) 61.2 % (42-78); TOTAL CELLS COUNTED % (AUTO) 100 %; WHITE BLOOD COUNT 10.7 10^3/uL (4.0-10.5)
[2018-06-12] MEDS ORDERED: OXYCODONE-ACETAMINOPHEN 5-325 MG TABLET PO ONE (19:48)
[2018-06-12 19:54] LABS: A TYPE INFLUENZA AG NEGATIVE (NEGATIVE); B INFLUENZA AG NEGATIVE (NEGATIVE)
[2018-06-12 20:00] LABS: ALANINE AMINOTRANSFERASE 22 U/L (21-72); ALBUMIN 4.9 g/dL (3.5-5.0); ALKALINE PHOSPHATASE 115 U/L (38-126); ANION GAP 10 (5-19); ASPARTATE AMINO TRANSFERASE 21 U/L (17-59); BILIRUBIN,DIRECT 0.3 mg/dL (0.0-0.4); BILIRUBIN,TOTAL 0.3 mg/dL (0.2-1.3); BLOOD UREA NITROGEN 5 mg/dL (7-20); CALCIUM 10.9 mg/dL (8.4-10.2); CARBON DIOXIDE 31 mmol/L (22-30); CHLORIDE 95 mmol/L (98-107); GLUCOSE 102 mg/dL (75-110); POTASSIUM 3.5 mmol/L (3.6-5.0)
[2018-06-12] MEDS ORDERED: HYDROMORPHONE HCL INJ/PF 2 MG/ML AMPULE IV ONE (23:08)
--- NOTE | 2018-06-12 23:12 | ER Document Report ---
ED General - General Chief Complaint: Abdominal Pain Stated Complaint: BACK/ABDOMINAL PAIN Time Seen by Provider: 06/12/18 17:53 Notes: Patient is a 52-year-old male who presents with complaints of pain that he feels in his lungs and his chest and down into his abdomen. He has a rash that is slightly excoriated. It is difficult to tell if the rash started first and the pain started first. Initially patient told me that the rash started first. He then later told me during his history that the pains been there for 2 weeks but the rash has been there for 1 week. Denies any fevers. He saw his primary care doctor who placed him on valacyclovir because he said that the rash was shingles. The rash is however on both sides of his body and crosses the midline and in multiple different locations. Patient does have a history of abdominal aortic aneurysm. He does not follow with a surgeon for this. He says is followed by his primary care doctor. Patient also has a history of a lung mass. He said initially his doctors thought it was TB but they biopsied it and it was not TB. 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 No vomiting. No diarrhea. No other complaints at this time. TRAVEL OUTSIDE OF THE [place] IN LAST 30 DAYS: No - Related Data Allergies/Adverse Reactions: Penicillins Allergy (Verified 06/12/18 16:42) Past Medical History - Social History Smoking Status: Unknown if Ever Smoked Frequency of alcohol use: None Drug Abuse: None Family History: CAD, Other - COPD -father Patient has suicidal ideation: No Patient has homicidal ideation: No - Past Medical History Cardiac Medical History: Reports: Hx Hypercholesterolemia Denies: Hx Coronary Artery Disease, Hx Heart Attack, Hx Hypertension Pulmonary Medical History: Reports: Hx Asthma, Hx Bronchitis, Hx COPD, Hx Pneumonia, Hx Respiratory Failure - Oxygen dependent Neurological Medical History: Reports: Hx Seizures - 2008 put on seizure/MEDICATED QHS. Denies: Hx Cerebrovascular Accident Renal/ Medical History: Denies: Hx Peritoneal Dialysis GI Medical History: Reports: Hx Gastroesophageal Reflux Disease. Denies: Hx Hepatitis, Hx Hiatal Hernia, Hx Ulcer Musculoskeletal Medical History: Reports Hx Arthritis Psychiatric Medical History: Reports: Hx Depression Infectious Medical History: Denies: Hx Hepatitis Past Surgical History: Reports: Other - Chest tube placement. Denies: Hx Open Heart Surgery, Hx Pacemaker - Immunizations Hx Diphtheria, Pertussis, Tetanus Vaccination: No Hx Pneumococcal Vaccination: 02/17/16 Review of Systems - Review of Systems Notes: My Normal Review Basic REVIEW OF SYSTEMS: CONSTITUTIONAL : Denies fever, chills, or sweats. Denies recent illness. EENT: Denies eye, ear, throat, or mouth pain or symptoms. Denies nasal or sinus congestion. CARDIOVASCULAR: Chest pain RESPIRATORY: Some pain with breathing. GASTROINTESTINAL: Has abdominal pain. Denies nausea, vomiting, or diarrhea. MUSCULOSKELETAL: Denies neck or back pain or joint pain or swelling. SKIN: Denies rash or skin lesions. NEUROLOGICAL: Denies altered mental status or loss of consciousness. Denies headache. Denies weakness or paralysis or loss of use of either side. Denies problems with gait or speech. Denies sensory or motor loss. ALL OTHER SYSTEMS REVIEWED AND NEGATIVE. Physical Exam - Vital signs Vitals: Temp Pulse Resp BP Pulse Ox 97.6 F 94 16 139/84 H 97 06/12/18 16:46 06/12/18 16:46 06/12/18 16:46 06/12/18 16:46 06/12/18 16:46 - Notes Notes: General Appearance: Well nourished, alert, cooperative, no acute distress, moderate obvious discomfort. Vitals: reviewed, See vital signs table. Head: no swelling or tenderness to the head Eyes: PERRL, EOMI, Conjuctiva clear Mouth: No decreasd moisture Neck: Supple, no neck tenderness, No thyromegaly Lungs: No wheezing, No rales, No rhonci, No accessory muscle use, good air exchange bilaterally. Heart: Normal rate, Regular rythm, No murmur, no rub Abdomen: Normal BS, soft, No rigidity, pain to palpation over central abdomen., No guarding, no rebound, no abdominal masses, no organomegaly Extremities: strength 5/5 in all extremities, good pulses in all extremities, no swelling or tenderness in the extremities, no edema. Skin: Scattered rash that looks like very small areas of excoriation. They are on both the left and right side of his body. There are a few more in the left. It is very scattered and that some small clustered areas. There is an area over his lumbar spine is well. There is a few areas over his shins on his legs. Neuro: speech clear, oriented x 3, normal affect, responds appropriately to questions. Course - Re-evaluation Re-evalutation: 06/12/18 23:11 Patient has a history of a abdominal aortic aneurysm. Concerned his pain could be coming from this. Avoid immediate CT scan of the chest and pelvis IV contrast. Informed nursing staff I want this done as soon as possible. I ordered pain medication as the patient is in significant pain. - Vital Signs Vital signs: Temp Pulse Resp BP Pulse Ox 97.6 F 94 16 139/84 H 97 06/12/18 16:46 06/12/18 16:46 06/12/18 16:46 06/12/18 16:46 06/12/18 16:46 - Laboratory Result Diagrams: 06/12/18 19:17 06/12/18 19:17 Laboratory results interpreted by me: 06/12/18 06/12/18 06/12/18 19:17 19:17 23:04 WBC 10.7 H RBC 4.19 L MCV 98 H MCH 34.7 H RDW 15.1 H Sodium 136.0 L Potassium 3.5 L Chloride 95 L Carbon Dioxide 31 H BUN 5 L Calcium 10.9 H Urine Ketones TRACE H Urine Blood MODERATE H - EKG Interpretation by Me Additional EKG results interpreted by me: 06/13/18 00:43 EKG is reviewed and interpreted by me. EKG shows normal sinus rhythm with a rate of [address] segment elevation or depression. No ischemic T wave inversions. LA interval, QRS duration, QT intervals are within normal range. Old EKG for comparison is from September 30, 2017. Discharge - Discharge Clinical Impression: Rash Chest pain Qualifiers: Chest pain type: unspecified Qualified Code(s): R07.9 - Chest pain, unspecified Condition: Good Disposition: HOME, SELF-CARE Additional Instructions: The exact cause of your pain and rash is not 100% clear. I suspect you could have some pleurisy from your MAC infection. I have prescribed 2 medications. They are Toradol and Corinth. Please try the Toradol first for pain as it does not sedate you and is not addicting. Please stop taking the tramadol. Do not take other NSAID medications such as Aspirin, Motrin, Ibuprofen, Aleve, or Advil when taking this medication. It is okay to take Tylenol. Please be aware that Corinth does have Tylenol (acetaminophen) in it. Please make sure you do not take more than 4000 mg of acetaminophen a day. Do not drive or care for children after you have taken this medication they will make you sleepy and sometimes impair judgment. Please follow up with your doctor on Friday for reevaluation. please return to the ER immediately if you develop intractable pain, fevers, diffiuclty breathing, or feel that you are worsening in any way. I have sent blood to be tested for HIV. I will call you if the HIV testing is positive. Please have you primary care doctor request the results of today's CT scan and testing. 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 This should not be causing your symptoms and just needs to be followed with routine CT scans or ultrasounds. Prescriptions: Ketorolac Tromethamine [Toradol 10 mg Tablet] 10 mg PO Q8HP PRN #15 tablet PRN Reason: Hydrocodone/Acetaminophen [Corinth 5-325 mg Tablet] 1 tab PO Q4 PRN #16 tablet PRN Reason: For Breakthrough Pain
[2018-06-12 23:30] LABS: APPEARANCE,URINE SLIGHTLY-CLOUDY; BILIRUBIN,URINE NEGATIVE (NEGATIVE); GLUCOSE, URINE NEGATIVE (NEGATIVE); KETONES,URINE TRACE mg/dL (NEGATIVE); LEUKOCYTE ESTERASE,URINE NEGATIVE (NEGATIVE); NITRITE,URINE NEGATIVE (NEGATIVE); PROTEIN,URINE NEGATIVE (NEGATIVE); URINE SPECIFIC GRAVITY 1.019; UROBILINOGEN,URINE NEGATIVE mg/dL (<2.0)
[2018-06-12 23:33] LABS: COLOR,URINE YELLOW
--- NOTE | 2018-06-12 23:51 | RADIOLOGY REPORT (SQ) ---
EXAM DESCRIPTION: CT CHEST ANGIOGRAPHY, abdomen, and pelvis WITHOUT THEN WITH IV CONTRAST COMPLETED DATE/TME: 06/12/2018 23:09 CLINICAL HISTORY: 52 years, Male, aorta COMPARISON: Noncontrast CT chest 04/06/2018. TECHNIQUE: 1141 Images stored on PACS. All CT scanners at this facility use dose modulation, iterative reconstruction, and/or weight based dosing when appropriate to reduce radiation dose to as low as reasonably achievable (ALARA). Axial CT images were obtained with coronal and sagittal MIPS reconstructions. [facility]: Dose Right [facility]: CareDose [facility]: Dose Right [facility]: Teradose 4D [facility]: Linear Labs LIMITATIONS: None. FINDINGS: CTA chest: The visualized thyroid gland enhances normally. The mediastinal vasculature enhances normally. There is no intraluminal filling defect to suggest pulmonary embolus. Negative for thoracic aorta aneurysm or dissection. Coronary artery calcification. No mediastinal or hilar adenopathy. Heart and pericardium are otherwise unremarkable. Osseous structures of the thorax are grossly intact. No pneumothorax. Severe emphysematous changes are noted. Stable nodule in the posterior left upper lobe measuring 8.4 mm. Poorly defined area of spiculated nodularity in the lateral left upper lobe with adjacent groundglass opacity, unchanged. Stable nodule in the superior segment of the left lung base with an adjacent satellite nodule. The larger component measures 2.8 x 1.5 cm. Immediately adjacent nodule measures 1.3 cm. There is a smaller peripheral nodule measures 7.5 mm. No effusion. No new lung nodules or masses. CTA abdomen/pelvis: Osseous structures of the abdomen/pelvis are grossly intact. Approximately 50% luminal narrowing at the origin of the celiac axis. The superior mesenteric and inferior mesenteric arteries are widely patent. Widely patent renal arteries bilaterally. Ectasia of the infrarenal abdominal aorta, with intramural thrombus formation and aneurysm. Maximal diameter of the infrarenal abdominal aortic aneurysm is 3.0 cm AP by 3.1 cm transverse. This shows little interval change dating back to a 10/07/2015 CT abdomen. No periaortic fluid collection. Stable atheromatous change of the bilateral common, internal, external iliac arteries. Fatty infiltrative change to the liver is suspected. The spleen, adrenal glands, pancreas, kidneys are unremarkable. The gallbladder is present. Large amount stool in the colon. No gross evidence for bowel obstruction. No free air or free fluid. Occasional sigmoid diverticuli. No CT evidence for diverticulitis.. IMPRESSION: Negative for thoracic aortic aneurysm or dissection. Stable pulmonary nodules of the left lung, as above. Correlation with tissue diagnosis recommended, if not already performed. No new lung nodules. Stable mild aneurysmal dilatation of the infrarenal abdominal aorta, grossly unchanged dating back to 2016. No CTA evidence for dissection. 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 Occasional sigmoid diverticuli without CT evidence for diverticulitis. Fatty infiltrative change to the liver. TECHNICAL DOCUMENTATION: Quality ID # [id number]: Final reports with documentation of one or more dose reduction techniques (e.g., Automated exposure control, adjustment of the mA and/or kV according to patient size, use of iterative reconstruction technique) copyright 2011 [employer]- All Rights Reserved
[2018-06-13] MEDS ORDERED: HYDROCODONE/ACETAMINOPHEN 5-325 MG (6 TAB/ER DISP) PO PRN (00:42)
[2018-06-13 01:22] VITALS: BP 136/82
--- NOTE | 2018-06-13 08:57 | EKG REPORT ---
SEVERITY:- ABNORMAL ECG - SINUS RHYTHM NONSPECIFIC T ABNORMALITIES, ANT-LAT LEADS : Confirmed by: Deidre Camarena MD 13-Jun-2018 08:57:11
== END 2018-06-13 01:09 | disposition home or self-care (01) ==
LOC: ER 16:39
DX: R21 Rash and other nonspecific skin eruption (principal); R07.9 Chest pain, unspecified; R10.9 Unspecified abdominal pain; Z88.0 Allergy status to penicillin; E78.00 Pure hypercholesterolemia, unspecified
CPT/HCPCS: 93005; 99284; 96361; 96374; 96375; 36415; 85025; 80053; 81001; 84484; 86701; 87804; 71046; 71275; 74174; 93010; J2930; J1170; J2405; J7030

== ENCOUNTER → 2018-11-17 | Outpatient (CLI) | payer MEDICAID | LOC: LAB 07:48 | PROVIDERS: ATTEND Internal Medicine Pulmonary Disease | DX: D86.0 Sarcoidosis of lung (principal) | CPT/HCPCS: 87015; 87116; 87206 ==

== ENCOUNTER 2018-11-28 18:44 | Inpatient (IN) | payer MEDICAID ==
[2018-11-28] MEDS ORDERED: IPRATROPIUM/ALBUTEROL 0.5-2.5 MG/3 ML AMPUL NEB ONE (20:34)
--- NOTE | 2018-11-28 20:36 | ER Document Report ---
ED Medical Screen (RME) - General Chief Complaint: Shortness Of Breath Stated Complaint: DIFFICULTY BREATHING Time Seen by Provider: 11/28/18 20:28 Primary Care Provider: MANOLO ONEILL MD [Primary Care Provider] - Follow up as needed Notes: Patient is a 52-year-old male presents to the emergency department for generalized respiratory distress. Patient states he is felt more short of breath for the last 2 days. Patient states he is also had generalized cough and congestion. Patient's admitting to subjective fevers. Patient's denying any chest pain. Patient states he has a history of COPD but is denying any history of congestive heart failure. Patient states bilateral lower extremities are swollen. States this is abnormal for him. GENERAL: Alert, interacts well. On oxygen 2 L/min via nasal cannula, obvious tachypnea noted LUNGS: Inspiratory expiratory wheezes to auscultation bilaterally, pursed lip breathing noted. Patient was upgraded to a higher QUENTIN level upon my assessment. Waiting room placement. I have greeted and performed a rapid initial assessment of this patient. A comprehensive ED assessment and evaluation of the patient, analysis of test results and completion of the medical decision making process will be conducted by additional ED providers. I have specifically instructed the patient or family members with the patient to immediately return to any nursing staff should anything change in the patient's condition or with their chief complaint. This medical record was dictated with voice recognizing software. There may be grammatical, syntax errors that are unintended. TRAVEL OUTSIDE OF THE [place] IN LAST 30 DAYS: No - Related Data Allergies/Adverse Reactions: Penicillins Allergy (Verified 11/28/18 20:26) Past Medical History - Past Medical History Cardiac Medical History: Reports: Hx Hypercholesterolemia Denies: Hx Coronary Artery Disease, Hx Heart Attack, Hx Hypertension Pulmonary Medical History: Reports: Hx Asthma, Hx Bronchitis, Hx COPD, Hx Pneumonia, Hx Respiratory Failure - Oxygen dependent Neurological Medical History: Reports: Hx Seizures - 2007 put on seizure/MEDICATED QHS. Denies: Hx Cerebrovascular Accident Renal/ Medical History: Denies: Hx Peritoneal Dialysis GI Medical History: Reports: Hx Gastroesophageal Reflux Disease. Denies: Hx Hepatitis, Hx Hiatal Hernia, Hx Ulcer Musculoskeltal Medical History: Reports Hx Arthritis Psychiatric Medical History: Reports: Hx Depression Infectious Medical History: Denies: Hx Hepatitis Past Surgical History: Reports: Other - Chest tube placement. Denies: Hx Open Heart Surgery, Hx Pacemaker - Immunizations Hx Diphtheria, Pertussis, Tetanus Vaccination: No History of Influenza Vaccine for 02/2017 - 07/2017 Season: No Influenza Administration Date for 02/2017 - 07/2017 Season: 02/17/16 Physical Exam - Vital signs Vitals: Temp Pulse Resp BP Pulse Ox 97.8 F 94 24 H 130/73 H 94 11/28/18 18:58 11/28/18 18:58 11/28/18 18:58 11/28/18 18:58 11/28/18 18:58 Course - Vital Signs Vital signs: Temp Pulse Resp BP Pulse Ox 97.8 F 94 24 H 130/73 H 94 11/28/18 18:58 11/28/18 18:58 11/28/18 18:58 11/28/18 18:58 11/28/18 18:58 Doctor's Discharge - Discharge Referrals: MANOLO ONEILL MD [Primary Care Provider] - Follow up as needed
[2018-11-28] MEDS ORDERED: MAGNESIUM SULFATE/D5W 2 GM/200 ML RTUPB IV ONE (20:54)
[2018-11-28] MEDS ORDERED: METHYLPREDNISOLONE INJ 125 MG/2 ML SDV ONE (20:54)
[2018-11-28] MEDS ORDERED: METHYLPREDNISOLONE INJ 125 MG/2 ML SDV IV ONE (21:10)
--- NOTE | 2018-11-28 21:13 | ER Document Report ---
ED Respiratory Problem - General Chief Complaint: Shortness Of Breath Stated Complaint: DIFFICULTY BREATHING Time Seen by Provider: 11/28/18 20:28 Mode of Arrival: Wheelchair Information source: Patient Notes: Patient is a 52-year-old male with past medical history of COPD and emphysema presented to the emergency department with 2-day history of shortness of breath and chills. Patient also reports increased sputum production. He reports that he was recently admitted to [facility] for similar episode approximately 2 weeks ago. His reviewer sales is Dr. Gaspar, his primary care provider is Dr. Parrish. Patient denies ever having been intubated in the past. He does currently smoke 2 packs of cigarettes per day. TRAVEL OUTSIDE OF THE [place] IN LAST 30 DAYS: No - Related Data Allergies/Adverse Reactions: Penicillins Allergy (Verified 11/28/18 20:26) Past Medical History - Social History Smoking Status: Current Every Day Smoker - 2 PPD Frequency of alcohol use: None Drug Abuse: None Family History: CAD, Other - COPD -father - Past Medical History Cardiac Medical History: Reports: Hx Hypercholesterolemia Denies: Hx Coronary Artery Disease, Hx Heart Attack, Hx Hypertension Pulmonary Medical History: Reports: Hx Asthma, Hx Bronchitis, Hx COPD, Hx Pneumonia, Hx Respiratory Failure - Oxygen dependent Neurological Medical History: Reports: Hx Seizures - 2007 put on seizure/MEDICATED QHS. Denies: Hx Cerebrovascular Accident Renal/ Medical History: Denies: Hx Peritoneal Dialysis GI Medical History: Reports: Hx Gastroesophageal Reflux Disease. Denies: Hx Hepatitis, Hx Hiatal Hernia, Hx Ulcer Musculoskeletal Medical History: Reports Hx Arthritis Psychiatric Medical History: Reports: Hx Depression Infectious Medical History: Denies: Hx Hepatitis Past Surgical History: Reports: Other - Chest tube placement. Denies: Hx Open Heart Surgery, Hx Pacemaker - Immunizations Hx Diphtheria, Pertussis, Tetanus Vaccination: No Hx Pneumococcal Vaccination: 02/17/16 Review of Systems - Review of Systems Constitutional: Chills EENT: No symptoms reported Cardiovascular: Orthopnea, Dyspnea Respiratory: Cough, Short of breath, Sputum, Wheezing Gastrointestinal: No symptoms reported Genitourinary: No symptoms reported Male Genitourinary: No symptoms reported Musculoskeletal: No symptoms reported Skin: No symptoms reported Hematologic/Lymphatic: No symptoms reported Neurological/Psychological: No symptoms reported Physical Exam - Vital signs Vitals: Temp Pulse Resp BP Pulse Ox 97.8 F 94 24 H 130/73 H 94 11/28/18 18:58 11/28/18 18:58 11/28/18 18:58 11/28/18 18:58 11/28/18 18:58 - Notes Notes: PHYSICAL EXAMINATION: GENERAL: Well-nourished adult male in the tripod position. HEAD: Atraumatic, normocephalic. EYES: Pupils equal round and reactive to light, extraocular movements intact, sclera anicteric, conjunctiva are normal. ENT: Nares patent, oropharynx clear without exudates. Moist mucous membranes. NECK: Normal range of motion, supple without lymphadenopathy LUNGS: Inspiratory and expiratory wheezes noted throughout, diminished breath sounds, increased work of breathing noted. Rhonchi bilaterally. HEART: Regular rate and rhythm without murmurs ABDOMEN: Soft, nontender, nondistended abdomen. No guarding, no rebound. No masses appreciated. Musculoskeletal: 2+ pitting edema to right lower extremity, 3+ pitting edema to left lower extremity, erythema noted to posterior aspect of left foot. NEUROLOGICAL: Cranial nerves grossly intact. Normal speech. Normal sensory, motor exams PSYCH: Normal mood, normal affect. SKIN: Warm, Dry, normal turgor, no rashes or lesions noted. Course - Re-evaluation Re-evalutation: EKG was reviewed by me shows a rate of 87, sinus rhythm, QTc 429, no ST segment elevations or depressions to suggest ischemia. 11/28/18 22:05 Patient taken off of BiPAP temporarily and placed back on nasal cannula as patient reports he needs a break from it. Patient has become very anxious. Orders were placed for 0.5 mg of Ativan IV. Patient's lung sounds have improved he still has wheezes and rhonchi however he has improved significantly since the time of arrival. Laboratory 11/28/18 11/28/18 11/28/18 21:01 21:01 21:01 WBC 11.3 H RBC 4.33 L Hgb 12.5 L Hct 38.6 MCV 89 MCH 28.8 MCHC 32.4 RDW 19.3 H Plt Count 317 Seg Neutrophils % 73.4 Lymphocytes % 14.0 Monocytes % 8.4 Eosinophils % 3.2 Basophils % 1.0 Absolute Neutrophils 8.3 H Absolute Lymphocytes 1.6 Absolute Monocytes 0.9 Absolute Eosinophils 0.4 Absolute Basophils 0.1 VBG pH VBG pCO2 VBG HCO3 VBG Base Excess Sodium 140.1 Potassium 4.1 Chloride 101 Carbon Dioxide 30 Anion Gap 9 BUN 10 Creatinine 0.74 Est GFR ( Amer) > 60 Est GFR (Non-Af Amer) > 60 Glucose 104 Calcium 9.2 Total Bilirubin 0.2 Direct Bilirubin 0.2 Neonat Total Bilirubin Not Reportable Neonat Direct Bilirubin Not Reportable Neonat Indirect Bili Not Reportable AST 23 ALT 16 L Alkaline Phosphatase 164 H Troponin I < 0.012 NT-Pro-B Natriuret Pep 54 Total Protein 8.0 Albumin 4.3 11/28/18 21:01 WBC RBC Hgb Hct MCV MCH MCHC RDW Plt Count Seg Neutrophils % Lymphocytes % Monocytes % Eosinophils % Basophils % Absolute Neutrophils Absolute Lymphocytes Absolute Monocytes Absolute Eosinophils Absolute Basophils VBG pH 7.30 VBG pCO2 60.6 VBG HCO3 28.8 VBG Base Excess 1.0 Sodium Potassium Chloride Carbon Dioxide Anion Gap BUN Creatinine Est GFR ( Amer) Est GFR (Non-Af Amer) Glucose Calcium Total Bilirubin Direct Bilirubin Neonat Total Bilirubin Neonat Direct Bilirubin Neonat Indirect Bili AST ALT Alkaline Phosphatase Troponin I NT-Pro-B Natriuret Pep Total Protein Albumin Chest X-Ray 11/28/18 20:33 IMPRESSION: No evidence of acute cardiopulmonary disease. 11/28/18 23:41 - Vital Signs Vital signs: Temp Pulse Resp BP Pulse Ox 98.0 F 93 19 119/81 98 11/29/18 19:39 11/29/18 20:01 11/29/18 20:01 11/29/18 19:39 11/29/18 20:01 - Laboratory Result Diagrams: 11/28/18 21:01 11/28/18 21:01 Laboratory results interpreted by me: 11/28/18 11/28/18 21:01 21:01 WBC 11.3 H RBC 4.33 L Hgb 12.5 L RDW 19.3 H Absolute Neutrophils 8.3 H ALT 16 L Alkaline Phosphatase 164 H Discharge - Discharge Clinical Impression: COPD exacerbation, Bilateral lower extremity edema Condition: Stable Disposition: ADMITTED INPATIENT Admitting Provider: Bry (Hospitalist) Unit Admitted: Medical Floor
[2018-11-28 21:16] LABS: ABSOLUTE BASOPHILS # (AUTO) 0.1 10^3/uL (0.0-0.2); ABSOLUTE EOSINOPHILS # (AUTO) 0.4 10^3/uL (0.0-0.6); ABSOLUTE LYMPHOCYTES (AUTO) 1.6 10^3/uL (0.5-4.7); ABSOLUTE MONOCYTES (AUTO) 0.9 10^3/uL (0.1-1.4); ABSOLUTE NEUT (AUTO) 8.3 10^3/uL (1.7-8.2); EOSINOPHILS % (AUTO) 3.2 % (0-6); HEMATOCRIT 38.6 % (37.9-51.0); HEMOGLOBIN 12.5 g/dL (13.5-17.0); MEAN CORPUSCULAR HEMOGLOBIN 28.8 pg (27.0-33.4); MEAN CORPUSCULAR HGB CONC 32.4 g/dL (32.0-36.0); MEAN CORPUSCULAR VOLUME 89 fl (80-97); MONOCYTES % (AUTO) 8.4 % (3-13); PLATELET COUNT 317 10^3/uL (150-450); RED BLOOD COUNT 4.33 10^6/uL (4.35-5.55); RED CELL DISTRIBUTION WIDTH 19.3 % (11.5-14.0); SEGMENTED NEUTROPHILS % (AUTO) 73.4 % (42-78); TOTAL CELLS COUNTED % (AUTO) 100 %; WHITE BLOOD COUNT 11.3 10^3/uL (4.0-10.5)
[2018-11-28 21:17] LABS: VENOUS BLOOD HCO3 28.8 mmol/L (20-32); VENOUS BLOOD PCO2 60.6 mmHg (35-63); VENOUS BLOOD PH 7.3 (7.30-7.42)
[2018-11-28] MEDS: MAGNESIUM SULFATE/D5W 1 GM/100 ML RTUPB IV SCH ×2 (21:23→21:24)
[2018-11-28 21:34] LABS: ALANINE AMINOTRANSFERASE 16 U/L (21-72); ALBUMIN 4.3 g/dL (3.5-5.0); ALKALINE PHOSPHATASE 164 U/L (38-126); ANION GAP 9 (5-19); ASPARTATE AMINO TRANSFERASE 23 U/L (17-59); BILIRUBIN,DIRECT 0.2 mg/dL (0.0-0.4); BILIRUBIN,TOTAL 0.2 mg/dL (0.2-1.3); BLOOD UREA NITROGEN 10 mg/dL (7-20); CALCIUM 9.2 mg/dL (8.4-10.2); CARBON DIOXIDE 30 mmol/L (22-30); CHLORIDE 101 mmol/L (98-107); GLUCOSE 104 mg/dL (75-110); POTASSIUM 4.1 mmol/L (3.6-5.0); SODIUM 140.1 mmol/L (137-145)
[2018-11-28 21:48] LABS: NT PRO BNP 54 pg/mL (5-900)
[2018-11-28 21:49] LABS: TROPONIN I < 0.012 ng/mL
[2018-11-28] MEDS ORDERED: LORAZEPAM INJ 2 MG/1 ML VIAL IV ONE (22:00)
--- NOTE | 2018-11-28 22:00 | RADIOLOGY REPORT (SQ) ---
EXAM DESCRIPTION: XR CHEST 1 VIEW COMPLETED DATE/TME: 11/28/2018 20:33 CLINICAL HISTORY: SOB COMPARISON: June 12, 2018, September 30, 2017 FINDINGS: Cardiac silhouette is within normal limits. Straightening of the upper pulmonary vessels compatible with underlying emphysematous changes. Nodular opacity at the left mid lung is unchanged compared with the prior exam. EKG leads project over the chest. There is no focal parenchymal or pleural disease. There is no acute osseous process visualized. IMPRESSION: No evidence of acute cardiopulmonary disease.
--- NOTE | 2018-11-29 02:42 | PDOC H&P ---
History of Present Illness Admission Date/PCP: 11/28/18 23:12 MANOLO ONEILL MD Patient complains of: Dyspnea History of Present Illness: KRISTIE MALDONADO JR is a 52 year old male who presented to the emergency room with a 2-day history of dyspnea. He admits that for the last 2 days he has been having progressively worsening dyspnea increasing from moderate to severe and being accompanied by severe wheezing and chills without fever. He additionally has noted an increase in the amount of sputum (brownish/santiago mucus) he has been producing over the last 2 days versus his usual sputum production. Additionally he admits that he was recently hospitalized for similar symptoms 2 weeks ago at [facility]. He denies other associated or accompanying symptoms. He admits numerous prior similar episodes. Though he smokes 2 packs of cigarettes per day, he has not identified any aggravating or ameliorating factors for his dyspnea. In the emergency room he was found to have acute hypoxic respiratory failure and was treated with BiPAP. He was subsequently admitted to the hospital for further evaluation and treatment. Past Medical History Cardiac Medical History: Reports: Hyperlipidema Denies: Coronary Artery Disease, Myocardial Infarction, Hypertension Pulmonary Medical History: Reports: Asthma, Bronchitis, Chronic Obstructive Pulmonary Disease (COPD), Pneumonia, Respiratory Failure - Oxygen dependent Denies: Intubation EENT Medical History: Denies: Cataracts, Ears - Hearing aids Neurological Medical History: Reports: Seizures - 2008 put on seizure/MEDICATED QHS Denies: Hemorrhagic CVA, Ischemic CVA, Multiple Sclerosis Endocrine Medical History: Denies: Diabetes Mellitus Type 1, Diabetes Mellitus Type 2, Hyperthyroidism, Hypothyroidism Renal/ Medical History: Denies: Chronic Kidney Disease, Nephrolithiasis Malignancy Medical History: Reports: None GI Medical History: Reports: Gastroesophageal Reflux Disease Denies: Cirrhosis, Crohn's Disease, Hepatitis, Hiatal Hernia, Ulcerative Colitis Musculoskeltal Medical History: Reports: Arthritis Denies: Fibromyalgia, Gout Skin Medical History: Denies: Eczema, Psoriasis Psychiatric Medical History: Reports: Depression, Tobacco Dependency Denies: Alcohol Dependency, Substance Abuse Traumatic Medical History: Reports: None Hematology: Denies: Anemia, Bleeding Tendencies Infectious Medical History: Reports: None Past Surgical History Past Surgical History: Reports: Other - Chest tube placement Social History Information Source: Patient Smoking Status: Current Every Day Smoker - Smokes 2 packs of cigarettes per day Cigarettes Packs Per Day: 2 Frequency of Alcohol Use: None Hx Recreational Drug Use: No Drugs: None Hx Prescription Drug Abuse: No - Advance Directive Resuscitation Status: Full Code Surrogate healthcare decision maker:: Nargis Maldonado his mother Family History Family History: CAD, COPD Parental Family History Reviewed: Yes Children Family History Reviewed: No Sibling(s) Family History Reviewed.: Yes Medication/Allergy Home Medications: Phenytoin Sodium Extended [Dilantin] 300 mg PO QHS 12/27/12 Simvastatin 40 mg PO QHS 12/27/12 Albuterol Sulfate [Ventolin 0.083% Neb 2.5 mg/3 mL Ampul] 1 vial NEB Q4HP PRN 02/24/17 Duloxetine HCl [Cymbalta] 60 mg PO DAILY 02/24/17 Ipratropium/Albuterol Sulfate [Iprat-Albut 0.5-3(2.5) mg/3 ml] 3 ml IH Q6 02/24/17 Lubiprostone [Amitiza 24 Mcg Capsule] 24 mcg PO Q12 02/24/17 Montelukast Sodium [Singulair 10 mg Tablet] 10 mg PO DAILY 02/24/17 Oxycodone HCl/Acetaminophen [Percocet 10-325 mg Tablet] 1 each PO Q6HP PRN 02/24/17 Albuterol Sulfate [Proair HFA] 2 puff IH Q4 PRN 04/28/17 Azithromycin 1 tab PO DAILY 04/28/17 Cyanocobalamin (Vitamin B-12) [Vitamin B12] 1,500 mg PO DAILY 04/28/17 Esomeprazole Magnesium [Nexium] 1 cap PO DAILY 04/28/17 Ethambutol HCl [Myambutol 400 mg Tablet] 400 mg PO TID 04/28/17 Glycopyrrolate/Formoterol Fum [Bevespi Aerosphere Inhaler] 2 puff IH BID 04/28/17 Multivitamin/Iron/Folic Acid [Centrum Adults Tablet] 1 tab PO DAILY 04/28/17 Oxycodone HCl/Acetaminophen [Percocet 5-325 mg Tablet] 1 - 2 tab PO Q4H PRN #15 tablet 04/28/17 Rifampin [Rifadin 300 mg Capsule] 300 mg PO QPM 04/28/17 Tizanidine HCl 1 tab PO DAILY 04/28/17 Gabapentin 300 mg PO TID #60 capsule 10/03/17 Hydrocodone/Acetaminophen [[place] 5-325 mg Tablet] 1 tab PO Q4 PRN #16 tablet 06/13/18 Ketorolac Tromethamine [Toradol 10 mg Tablet] 10 mg PO Q8HP PRN #15 tablet 06/13/18 Allergies/Adverse Reactions: Penicillins Allergy (Verified 11/28/18 20:26) Review of Systems Constitutional: PRESENT: as per HPI, chills. ABSENT: fever(s) Eyes: ABSENT: visual disturbances, other - Ocular pain Ears: ABSENT: hearing changes, other - Ear pain Nose, Mouth, and Throat: ABSENT: mouth pain, sore throat Cardiovascular: PRESENT: dyspnea on exertion, other - Swelling of bilateral lower extremities for the last month. ABSENT: chest pain, edema, orthropnea, palpitations Respiratory: PRESENT: cough, dyspnea, sputum, other - Wheezing. ABSENT: hemoptysis Gastrointestinal: ABSENT: abdominal pain, constipation, diarrhea, nausea, vomiting Genitourinary: ABSENT: dysuria, hematuria Musculoskeletal: ABSENT: joint swelling, muscle weakness Integumentary: ABSENT: pruritus, rash Neurological: ABSENT: confusion, convulsions, focal weakness, memory loss, syncope Psychiatric: ABSENT: anxiety, depression Endocrine: ABSENT: cold intolerance, heat intolerance Hematologic/Lymphatic: ABSENT: easy bleeding, easy bruising Physical Exam Vital Signs: Temp Pulse Resp BP Pulse Ox 97.6 F 79 22 H 129/83 H 96 11/29/18 01:25 11/29/18 01:25 11/29/18 01:25 11/29/18 01:25 11/29/18 01:25 Intake & Output 11/27/18 11/28/18 11/29/18 23:59 23:59 23:59 Intake Total 102 Balance 102 Weight 89.7 kg General appearance: PRESENT: no acute distress, cooperative, other - On BiPAP at the time of exam Head exam: PRESENT: atraumatic, normocephalic Eye exam: PRESENT: conjunctiva pink. ABSENT: conjunctival injection, scleral icterus Ear exam: PRESENT: normal external ear exam. ABSENT: bleeding, drainage Mouth exam: PRESENT: dry mucosa, neck supple Neck exam: ABSENT: JVD, thyromegaly, tracheal deviation Respiratory exam: PRESENT: accessory muscle use - Mild accessory muscle use on BiPAP, decreased breath sounds - Moderately decreased breath sounds throughout all powell consistent with moderate to severe COPD, prolonged expiratory phas - Moderately prolonged expiratory phase throughout all [place], symmetrical, wheezes - Marked expiratory wheezes in all pow[place] Cardiovascular exam: PRESENT: RRR. ABSENT: clicks, gallop, rubs Pulses: PRESENT: normal radial pulses, normal dorsalis pedis pul Vascular exam: PRESENT: normal capillary refill. ABSENT: pallor GI/Abdominal exam: PRESENT: normal bowel sounds, soft Rectal exam: PRESENT: deferred Extremities exam: PRESENT: pedal edema - Bilateral, tenderness - Bilateral pretibial surfaces, +1 edema - Bilateral pretibial surfaces Musculoskeletal exam: ABSENT: deformity, dislocation Neurological exam: PRESENT: alert, oriented to person, oriented to place, oriented to time, oriented to situation, CN II-XII grossly intact. ABSENT: motor sensory deficit Psychiatric exam: PRESENT: appropriate affect, normal mood Skin exam: PRESENT: dry, intact, warm. ABSENT: jaundice, rash, urticaria Results Laboratory Results: 11/28/18 21:01 11/28/18 21:01 11/28/18 11/28/18 11/28/18 21:01 21:01 21:01 WBC 11.3 H RBC 4.33 L Hgb 12.5 L Hct 38.6 MCV 89 MCH 28.8 MCHC 32.4 RDW 19.3 H Plt Count 317 Seg Neutrophils % 73.4 Lymphocytes % 14.0 Monocytes % 8.4 Eosinophils % 3.2 Basophils % 1.0 Absolute Neutrophils 8.3 H Absolute Lymphocytes 1.6 Absolute Monocytes 0.9 Absolute Eosinophils 0.4 Absolute Basophils 0.1 VBG pH 7.30 VBG pCO2 60.6 VBG HCO3 28.8 VBG Base Excess 1.0 Sodium 140.1 Potassium 4.1 Chloride 101 Carbon Dioxide 30 Anion Gap 9 BUN 10 Creatinine 0.74 Est GFR ( Amer) > 60 Est GFR (Non-Af Amer) > 60 Glucose 104 Calcium 9.2 Total Bilirubin 0.2 AST 23 ALT 16 L Alkaline Phosphatase 164 H Total Protein 8.0 Albumin 4.3 11/28/18 21:01 Troponin I < 0.012 NT-Pro-B Natriuret Pep 54 Impressions: Chest X-Ray 11/28/18 20:33 IMPRESSION: No evidence of acute cardiopulmonary disease. Assessment and Plan - Diagnosis (1) Acute and chronic respiratory failure with hypoxia Is this a current diagnosis for this admission?: Yes Plan: Patient will be treated with supplemental oxygen utilizing noninvasive advanced airway pressure support devices as required to maintain adequate oxygenation. (2) COPD exacerbation Is this a current diagnosis for this admission?: Yes Plan: Patient's COPD exacerbation be treated with nebulized Xopenex, Atrovent and Pulmicort. He will also receive intravenous Solu-Medrol. He will have supplemental oxygen as noted above. Daily lab work including a CBC, metabolic profile and magnesium level will be obtained. (3) Bilateral lower extremity edema Is this a current diagnosis for this admission?: Yes Plan: Patient's bilateral lower extremity edema will be evaluated with bilateral lower extremity venous Doppler evaluations. Further evaluation and/or treatment will be considered pending results. (4) Tobacco abuse Is this a current diagnosis for this admission?: Yes Plan: Smoking cessation is advised and counseled briefly. Nicotine replacement patch will be available for the patient's use. (5) Seizure disorder Is this a current diagnosis for this admission?: Yes Plan: Patient be continued on his usual medications for seizure disorder. Appropriate blood levels will be obtained as necessary. - Time Time Spent with patient: 15-24 minutes Smoking Cessation Education: 3 to 10 minutes Medications reviewed and adjusted accordingly: Yes Anticipated discharge: Home - Inpatient Certification Based on my medical assessment, after consideration of the patient's comorbidities, presenting symptoms, or acuity I expect that the services needed warrant INPATIENT care.: Yes I certify that my determination is in accordance with my understanding of Medicare's requirements for reasonable and necessary INPATIENT services [42 CFR 412.3e].: Yes Medical Necessity: Need Close Monitoring Due to Risk of Patient Decompensation, Need for Nebulizer Therapy and Monitoring of Response, Need for IV Antibiotics, Risk of Complication if Not Cared For in Hospital
[2018-11-29] MEDS ORDERED: MAGNESIUM HYDROXIDE SUSP 30 ML UDCUP PO PRN (02:43)
[2018-11-29] MEDS ORDERED: MAG HYDROX/AL HYDROX/SIMETH SUSP 30 ML UDCUP PO PRN (02:43)
[2018-11-29] MEDS ORDERED: ONDANSETRON HCL INJ/PF 4 MG/2 ML SDV IV PRN (02:43)
[2018-11-29] MEDS ORDERED: MORPHINE SULFATE 10 MG/ML INJ IV PRN ×3 (02:51→03:07)
[2018-11-29] MEDS ORDERED: ACETAMINOPHEN 325 MG TABLET PO PRN (02:51)
[2018-11-29] MEDS ORDERED: LEVALBUTEROL HCL NEB 0.63 MG/3 ML AMPUL NEB PRN (02:51)
[2018-11-29] MEDS ORDERED: NICOTINE 21 MG/24 HR PATCH.TD24 TD PRN (02:51)
--- NOTE | 2018-11-29 03:00 | ADVANCED CARE ---
- Diagnosis (1) Acute and chronic respiratory failure with hypoxia Diagnosis Current: Yes (2) COPD exacerbation Diagnosis Current: Yes (3) Bilateral lower extremity edema Diagnosis Current: Yes (4) Tobacco abuse Diagnosis Current: Yes (5) Seizure disorder Diagnosis Current: Yes Attendance: The patient, Nargis Maldonado and myself. Resuscitation Status: Full Code Discussion: After very little discussion the patient is decided he wishes to be full code for resuscitation status throughout this hospitalization. Additionally he has named Nargis Maldonado his mother as his designated surrogate medical decision maker. Care Planning Goals: 1. Patient will be full CODE STATUS for this hospitalization. 2. Nargis Maldonado is his designated surrogate medical decision-maker. Document(s) Completed: The following information be entered into the patient's permanent medical record, current medical record and current orders via EMR entry: 1. Patient will be full CODE STATUS for this hospitalization. 2. Nargis Maldonado is his designated surrogate medical decision-maker. Time Spent: 3 minutes
[2018-11-29 06:38] LABS: ARTERIAL BLOOD BASE EXCESS 2.6 mmol/L; ARTERIAL BLOOD H2CO3 1.31 mmol/L (1.05-1.35); ARTERIAL BLOOD HCO3 27.5 mmol/L (20-24); ARTERIAL BLOOD O2 SATURATION 95.5 % (94-98); ARTERIAL BLOOD PCO2 43.5 mmHg (35-45); ARTERIAL BLOOD PH 7.42 (7.35-7.45); ARTERIAL BLOOD PO2 76.4 mmHg (80-100); ARTERIAL BLOOD TOTAL CO2 28.9 mmol/L (23-27)
[2018-11-29 06:41] LABS: ARTERIAL BLOOD FIO2 32%
[2018-11-29] MEDS: METHYLPREDNISOLONE INJ 40 MG/1 ML SDV IV SCH ×4 (06:57→23:59)
[2018-11-29] MEDS: HEPARIN SOD (PORCINE) 5,000 UNIT/ML 1 ML SYRINGE SUBCUT SCH ×3 (06:59→21:18)
[2018-11-29 07:22] LABS: CHOLESTEROL 243.97 mg/dL (0-200); TRIGLYCERIDES 62 mg/dL (<150)
[2018-11-29 07:33] LABS: DIRECT LDL 154 mg/dL (<100)
[2018-11-29 07:38] LABS: FREE T3 3.53 pg/mL (2.77-5.27); FREE T4 (FREE THYROXINE) 1.01 ng/dL (0.78-2.19)
[2018-11-29 07:51] LABS: THYROID STIMULATING HORMONE 0.52 uIU/mL (0.47-4.68)
[2018-11-29] MEDS ORDERED: BUDESONIDE NEB 0.5 MG/2 ML AMPUL NEB SCH (08:00)
[2018-11-29] MEDS: IPRATROPIUM BROMIDE 0.02% NEB 0.5 MG/2.5 ML AMPUL NEB SCH ×2 (08:40→15:37)
[2018-11-29] MEDS: LEVALBUTEROL HCL NEB 1.25 MG/3 ML AMPUL NEB SCH ×2 (08:40→15:37)
[2018-11-29] MEDS: DOCUSATE SODIUM 100 MG CAPSULE PO SCH ×2 (09:46→18:17)
[2018-11-29] MEDS: LEVOFLOXACIN 750 MG TABLET PO SCH (09:46)
[2018-11-29] MEDS: FAMOTIDINE 20 MG TABLET PO SCH ×2 (09:46→21:17)
--- NOTE | 2018-11-29 11:07 | Progress Note ---
Provider Note Provider Note: This is 52 years old male patient with past medical history of end- stage COPD home O2 dependent 09/12, seizure disorder, depression, chronic back pain presented with chief complaint of dyspnea. Patient admitted as a case of COPD exacerbation and he is being managed accordingly. Accepted this patient.
--- NOTE | 2018-11-29 11:10 | RADIOLOGY REPORT (SQ) ---
EXAM DESCRIPTION: VENOUS BILATERAL LOWER COMPLETED DATE/TIME: 11/29/2018 10:56 am REASON FOR STUDY: Bilateral lower leg edema left greater than right COMPARISON: None. TECHNIQUE: Dynamic and static chakraborty scale and color images acquired of both lower extremity venous sy stems. Selected spectral images acquired with additional compression and augmentation maneuvers. Imag es stored on PACS. LIMITATIONS: None. FINDINGS: RIGHT LEG COMMON FEMORAL AND FEMORAL: Normal phasicity, compression and augmentation. No visualized echogenic m aterial on chakraborty scale. No defects on color images. POPLITEAL: Normal compression and augmentation. No visualized echogenic material on chakraborty scale. No de fects on color images. CALF VESSELS: Normal compression and augmentation. No visualized echogenic material on chakraborty scale. No defects on color image. GSV AND SSV: Normal compression. No visualized echogenic material on chakraborty scale. No defects on color images. ANY DEEP VENOUS INSUFFICIENCY: Not evaluated. ANY EVIDENCE OF POPLITEAL CYST: No. OTHER: No other significant finding. LEFT LEG COMMON FEMORAL AND FEMORAL: Normal phasicity, compression and augmentation. No visualized echogenic m aterial on chakraborty scale. No defects on color images. POPLITEAL: Normal compression and augmentation. No visualized echogenic material on chakraborty scale. No de fects on color images. CALF VESSELS: Normal compression and augmentation. No visualized echogenic material on chakraborty scale. No defects on color images. GSV AND SSV: Normal compression. No visualized echogenic material on chakraborty scale. No defects on color images. ANY DEEP VENOUS INSUFFICIENCY: Not evaluated. ANY EVIDENCE POPLITEAL CYST: No. OTHER: No other significant finding. IMPRESSION: NO EVIDENCE DVT OR SVT IN EITHER LEG. TECHNICAL DOCUMENTATION: JOB ID: [id number] [employer]- All Rights Reserved Reading location - IP/workstation name: [facility]
[2018-11-29] MEDS: MORPHINE SULFATE 10 MG/ML INJ IV PRN ×4 (12:46→20:32)
[2018-11-29] MEDS ORDERED: LORAZEPAM INJ 2 MG/1 ML VIAL IV PRN (15:50)
--- NOTE | 2018-11-29 19:02 | EKG REPORT ---
SEVERITY:- ABNORMAL ECG - SINUS RHYTHM BORDERLINE LEFT AXIS DEVIATION NONSPECIFIC T ABNORMALITIES, ANT-LAT LEADS : Confirmed by: Deidre Camarena MD 29-Nov-2018 19:01:10
[2018-11-29] MEDS: BUDESONIDE NEB 0.5 MG/2 ML AMPUL NEB SCH (20:01)
[2018-11-30] MEDS: LEVALBUTEROL HCL NEB 1.25 MG/3 ML AMPUL NEB SCH ×2 (00:06→08:16)
[2018-11-30] MEDS: IPRATROPIUM BROMIDE 0.02% NEB 0.5 MG/2.5 ML AMPUL NEB SCH ×2 (00:06→08:16)
[2018-11-30] MEDS: MORPHINE SULFATE 10 MG/ML INJ IV PRN ×4 (00:10→07:48)
[2018-11-30 04:52] LABS: HEMATOCRIT 35.6 % (37.9-51.0); HEMOGLOBIN 11.8 g/dL (13.5-17.0); MEAN CORPUSCULAR VOLUME 88 fl (80-97); PLATELET COUNT 280 10^3/uL (150-450); RED BLOOD COUNT 4.06 10^6/uL (4.35-5.55); RED CELL DISTRIBUTION WIDTH 18.8 % (11.5-14.0); WHITE BLOOD COUNT 6.5 10^3/uL (4.0-10.5)
[2018-11-30] MEDS: METHYLPREDNISOLONE INJ 40 MG/1 ML SDV IV SCH (05:06)
[2018-11-30] MEDS: HEPARIN SOD (PORCINE) 5,000 UNIT/ML 1 ML SYRINGE SUBCUT SCH (05:07)
[2018-11-30 05:21] LABS: ANION GAP 9 (5-19); BLOOD UREA NITROGEN 12 mg/dL (7-20); CALCIUM 8.9 mg/dL (8.4-10.2); CARBON DIOXIDE 26 mmol/L (22-30); CHLORIDE 103 mmol/L (98-107); GLUCOSE 116 mg/dL (75-110); POTASSIUM 4.4 mmol/L (3.6-5.0); SODIUM 137.9 mmol/L (137-145)
[2018-11-30] MEDS: BUDESONIDE NEB 0.5 MG/2 ML AMPUL NEB SCH (08:16)
[2018-11-30] MEDS ORDERED: OXYCODONE-ACETAMINOPHEN 5-325 MG TABLET PO PRN (10:18)
[2018-11-30] MEDS: LEVOFLOXACIN 750 MG TABLET PO SCH (10:38)
[2018-11-30] MEDS: DOCUSATE SODIUM 100 MG CAPSULE PO SCH (10:38)
[2018-11-30] MEDS: FAMOTIDINE 20 MG TABLET PO SCH (10:38)
--- NOTE | 2018-11-30 10:41 | PDOC DISCHARGE SUMMARY ---
General - Admit/Disc Date/PCP Admission Date/Primary Care Provider: 11/29/18 00:05 MANOLO ONEILL MD Discharge Date: 11/30/18 - Discharge Diagnosis (1) Acute and chronic respiratory failure with hypoxia Is this a current diagnosis for this admission?: Yes (2) COPD exacerbation Is this a current diagnosis for this admission?: Yes (3) Tobacco dependence Is this a current diagnosis for this admission?: Yes (4) Seizure disorder Is this a current diagnosis for this admission?: Yes (5) Hypertension Is this a current diagnosis for this admission?: Yes (6) Hyperlipidemia Is this a current diagnosis for this admission?: Yes - Additional Information Resuscitation Status: Full Code Home Medications: Albuterol Sulfate [Proair Hfa Inhalation Aerosol 8.5 gm Mdi] 2 puff IH Q6HP PRN 11/29/18 Arformoterol Tartrate [Brovana Inhalation Solution 15 mcg/2 mL] 1 vial NEB RTBID 11/29/18 Aripiprazole 5 mg PO DAILY 11/29/18 Ergocalciferol (Vitamin D2) [Drisdol 50,000 Unit (1.25MG) Capsule] 50,000 unit PO WE@1000 11/29/18 Esomeprazole Magnesium 40 mg PO Q6AM 11/29/18 Gabapentin [Neurontin 300 mg Capsule] 300 mg PO BID 11/29/18 Gabapentin [Neurontin 300 mg Capsule] 600 mg PO QHS 11/29/18 Levorphanol Tartrate 2 mg PO TID 11/29/18 Lubiprostone [Amitiza 24 Mcg Capsule] 24 mcg PO BID 11/29/18 Montelukast Sodium [Singulair 10 mg Tablet] 10 mg PO QHS 11/29/18 Phenytoin Sodium Extended [Dilantin 100 mg Capsule.er] 100 mg PO Q8 11/29/18 Tizanidine HCl 4 mg PO TID 11/29/18 History of Present Illness History of Present Illness: KRISTIE MAYBERRY JR is a 52 year old male who presented to the emergency room with a 2-day history of dyspnea. He admits that for the last 2 days he has been moss ving progressively worsening dyspnea increasing from moderate to severe and being accompanied by severe wheezing and chills without fever. He additionally has noted an increase in the amount of sputum (brownish/santiago mucus) he has been producing over the last 2 days versus his usual sputum production. Additionally he admits that he was recently hospitalized for similar symptoms 2 weeks ago at [facility]. He denies other associated or accompanying symptoms. He admits numerous prior similar episodes. Though he smokes 2 packs of cigarettes per day, he has not identified any aggravating or ameliorating factors for his dyspnea. In the emergency room he was found to have acute h ypoxic respiratory failure and was treated with BiPAP. He was subsequently admitted to the hospital for further evaluation and treatment. Hospital Course Hospital Course: This is 52 years old male patient with past medical history of end- stage COPD home O2 dependent 09/12, seizure disorder, depression, chronic back pain presented with chief complaint of dyspnea. Patient admitted as a case of COPD exacerbation and he is being managed accordingly. Accepted this patient. 11/30/2018: Patient seen and examined while sitting at bedside. He is awake alert oriented. His shortness of breath has been subsiding. The wheezing also resolved. His leukocytosis resolved. His vital signs and blood works are unremarkable. And is stable enough to go home today. I will send him home with Zithromax and prednisone 40 mg daily for 5 days. Patient advised and encouraged to quit smoking. And he needs follow-up with his primary care physician as alvarado hernandez. Physical Exam Vital Signs: Temp Pulse Resp BP Pulse Ox 97.5 F 83 18 140/84 H 94 11/30/18 07:14 11/30/18 08:16 11/30/18 08:16 11/30/18 07:14 11/30/18 08:16 Intake & Output 11/29/18 11/30/18 12/01/18 06:59 06:59 06:59 Intake Total 102 1680 Balance 102 1680 Weight 89.7 kg 89.7 kg General appearance: PRESENT: no acute distress Eye exam: PRESENT: conjunctiva pink Neck exam: ABSENT: carotid bruit, JVD, lymphadenopathy, thyromegaly Respiratory exam: PRESENT: clear to auscultation estefany. ABSENT: rales, rhonchi, wheezes GI/Abdominal exam: PRESENT: normal bowel sounds, soft. ABSENT: distended, guarding, mass, organolmegaly, rebound, tenderness Neurological exam: PRESENT: alert, altered, awake, oriented to person, oriented to place, oriented to time, oriented to situation Results Laboratory Results: 11/30/18 04:04 11/30/18 04:04 11/30/18 11/30/18 04:04 04:04 WBC 6.5 RBC 4.06 L Hgb 11.8 L Hct 35.6 L MCV 88 MCH 29.0 MCHC 33.0 RDW 18.8 H Plt Count 280 Sodium 137.9 Potassium 4.4 Chloride 103 Carbon Dioxide 26 Anion Gap 9 BUN 12 Creatinine 0.77 Est GFR ( Amer) > 60 Est GFR (Non-Af Amer) > 60 Glucose 116 H Calcium 8.9 Magnesium 2.0 11/28/18 21:01 Troponin I < 0.012 NT-Pro-B Natriuret Pep 54 Impressions: Chest X-Ray 11/28/18 20:33 IMPRESSION: No evidence of acute cardiopulmonary disease. Venous Doppler Study 11/29/18 00:00 IMPRESSION: NO EVIDENCE DVT OR SVT IN EITHER LEG. Qualifiers - * PATIENT BEING DISCHARGED WITH ANY OF THE FOLLOWING DIAGNOSIS: No Acute Heart Failure - Is this a Heart Failure Patient?: No LVEF < 40%?: No- if no continue to question #3 3. Anticoagulant therapy for permanect/persistent/paraoxysmal Afib or Aflutter: N/A
[2018-11-30 12:07] VITALS: BP 136/68
== END 2018-11-30 13:20 | disposition home or self-care (01) | DRG 190 ==
LOC: ER 18:44 → EH 11-29 00:05 → 4S 11-29 01:44
PROVIDERS: ADMIT Emergency Medicine; ATTEND Emergency Medicine
PROC: 5A09357 Assistance with Respiratory Ventilation, Less than 24 Consecutive Hours, Continuous Positive Airway Pressure (ICD-10-PCS; principal; 2018-11-29)
DX: J44.1 Chronic obstructive pulmonary disease with (acute) exacerbation (principal); J96.21 Acute and chronic respiratory failure with hypoxia; Z99.81 Dependence on supplemental oxygen; G40.909 Epilepsy, unspecified, not intractable, without status epilepticus; I10 Essential (primary) hypertension; E78.5 Hyperlipidemia, unspecified; F17.210 Nicotine dependence, cigarettes, uncomplicated; F32.9 Major depressive disorder, single episode, unspecified; M54.9 Dorsalgia, unspecified; G89.29 Other chronic pain; K21.9 Gastro-esophageal reflux disease without esophagitis; M19.90 Unspecified osteoarthritis, unspecified site; Z71.6 Tobacco abuse counseling; Z82.49 Family history of ischemic heart disease and other diseases of the circulatory system; Z83.6 Family history of other diseases of the respiratory system; Z88.0 Allergy status to penicillin
CPT/HCPCS: 36415; 36600; 71045; 80048; 80053; 80061; 80185; 82803; 83735; 83880; 84439; 84443; 84481; 84484; 85025; 85027; 93005; 93010; 93970; 94640; 94660; J1644; J2060; J2270; J2920; J2930; J3475; J3490; J7614; J7620

== ENCOUNTER → 2018-12-16 | Outpatient (CLI) | payer MEDICAID ==
[2018-12-16 10:49] LABS: ARTERIAL BLOOD BASE EXCESS 6.8 mmol/L; ARTERIAL BLOOD FIO2 2L; ARTERIAL BLOOD H2CO3 1.38 mmol/L (1.05-1.35); ARTERIAL BLOOD HCO3 31.7 mmol/L (20-24); ARTERIAL BLOOD O2 SATURATION 91.7 % (94-98); ARTERIAL BLOOD PH 7.46 (7.35-7.45); ARTERIAL BLOOD PO2 59.2 mmHg (80-100); ARTERIAL BLOOD TOTAL CO2 33.1 mmol/L (23-27)
== END ==
LOC: OD 10:19
PROVIDERS: ATTEND Internal Medicine Pulmonary Disease
DX: J96.21 Acute and chronic respiratory failure with hypoxia (principal)
CPT/HCPCS: 36600; 82803

== ENCOUNTER 2019-01-23 23:09 | Emergency (ER) | payer MEDICAID ==
[2019-01-24 00:08] LABS: ABSOLUTE BASOPHILS # (AUTO) 0.1 10^3/uL (0.0-0.2); ABSOLUTE EOSINOPHILS # (AUTO) 0.3 10^3/uL (0.0-0.6); ABSOLUTE LYMPHOCYTES (AUTO) 1.6 10^3/uL (0.5-4.7); ABSOLUTE NEUT (AUTO) 6.9 10^3/uL (1.7-8.2); BASOPHILS % (AUTO) 0.7 % (0-2); EOSINOPHILS % (AUTO) 3.4 % (0-6); HEMATOCRIT 38.1 % (37.9-51.0); HEMOGLOBIN 12.7 g/dL (13.5-17.0); MEAN CORPUSCULAR HEMOGLOBIN 29.1 pg (27.0-33.4); MEAN CORPUSCULAR HGB CONC 33.2 g/dL (32.0-36.0); MEAN CORPUSCULAR VOLUME 88 fl (80-97); MONOCYTES % (AUTO) 10.1 % (3-13); PLATELET COUNT 331 10^3/uL (150-450); RED BLOOD COUNT 4.35 10^6/uL (4.35-5.55); RED CELL DISTRIBUTION WIDTH 19.2 % (11.5-14.0); SEGMENTED NEUTROPHILS % (AUTO) 69.8 % (42-78); TOTAL CELLS COUNTED % (AUTO) 100 %; WHITE BLOOD COUNT 9.9 10^3/uL (4.0-10.5)
[2019-01-24 00:24] LABS: ALBUMIN 4.5 g/dL (3.5-5.0); ALKALINE PHOSPHATASE 145 U/L (38-126); ANION GAP 12 (5-19); ASPARTATE AMINO TRANSFERASE 23 U/L (17-59); BILIRUBIN,DIRECT 0.2 mg/dL (0.0-0.4); BILIRUBIN,TOTAL 0.3 mg/dL (0.2-1.3); BLOOD UREA NITROGEN 16 mg/dL (7-20); CALCIUM 9.4 mg/dL (8.4-10.2); CARBON DIOXIDE 29 mmol/L (22-30); CHLORIDE 97 mmol/L (98-107); GLUCOSE 123 mg/dL (75-110); POTASSIUM 3.4 mmol/L (3.6-5.0); TOTAL PROTEIN 8.1 g/dL (6.3-8.2)
[2019-01-24 00:31] LABS: APPEARANCE,URINE CLEAR; BILIRUBIN,URINE NEGATIVE (NEGATIVE); COLOR,URINE STRAW; GLUCOSE, URINE NEGATIVE (NEGATIVE); KETONES,URINE NEGATIVE (NEGATIVE); LEUKOCYTE ESTERASE,URINE NEGATIVE (NEGATIVE); NITRITE,URINE NEGATIVE (NEGATIVE); PROTEIN,URINE NEGATIVE (NEGATIVE); URINE SPECIFIC GRAVITY 1.006; UROBILINOGEN,URINE NEGATIVE mg/dL (<2.0)
[2019-01-24] MEDS ORDERED: ALBUTEROL SULFATE 0.083% NEB 2.5 MG/3 ML AMPUL NEB ONE (00:49)
[2019-01-24] MEDS ORDERED: IPRATROPIUM/ALBUTEROL 0.5-2.5 MG/3 ML AMPUL NEB ONE ×2 (00:50→00:59)
--- NOTE | 2019-01-24 01:13 | RADIOLOGY REPORT (SQ) ---
EXAM DESCRIPTION: XR CHEST 1 VIEW COMPLETED DATE/TME: 01/23/2019 23:50 CLINICAL HISTORY: 53 years Male shortness of breath COMPARISON: Prior examination is not available for download at this time. FINDINGS: The cardiomediastinal silhouette appears unremarkable. No consolidating infiltrates or pleural effusions. No pneumothorax. IMPRESSION: No acute abnormality is identified.
[2019-01-24] MEDS ORDERED: FUROSEMIDE INJ/PF 20 MG/2 ML SDV IV ONE (01:49)
--- NOTE | 2019-01-24 01:51 | ER Document Report ---
ED General - General Chief Complaint: Shortness Of Breath Stated Complaint: LOWER EXTREMITY SWELLING/TROUBLE BREATHING Time Seen by Provider: 01/24/19 00:39 Primary Care Provider: MANOLO GASPAR MD [Primary Care Provider] - Follow up in 3-5 days Mode of Arrival: Wheelchair Information source: Patient, Relative, [facility] Records Notes: 53-year-old male with COPD, O2 dependent, chronic respiratory failure (who continues to use tobacco) presents with his with complaint of shortness of breath and lower extremity swelling. Patient does take Lasix but states he has been only taking half of the dose that he is prescribed. Patient is supposed to be on continuous oxygen but admits that he does not wear it continuously. Patient does smoke 15 cigarettes a day. He has an associated nonproductive cough which she states is chronic. He denies any history of PE, DVT. TRAVEL OUTSIDE OF THE [place] IN LAST 30 DAYS: No - HPI Onset: Other Onset/Duration: Gradual, Persistent Quality of pain: No pain Severity: Moderate Pain Level: 2 Associated symptoms: Nonproductive cough, Leg swelling, Shortness of breath. denies: Chest pain, Productive cough, Fever, Headache, Nausea, Vomiting, Weakness Exacerbated by: Coughing Relieved by: Denies Similar symptoms previously: Yes Recently seen / treated by doctor: Yes - Related Data Allergies/Adverse Reactions: Penicillins Allergy (Verified 11/28/18 20:26) Past Medical History - General Information source: Patient - Social History Smoking Status: Current Every Day Smoker Cigarette use (# per day): Yes - 10 Smoking Education Provided: Yes - Smoking cessation counseling was provided for 4 minutes at the bedside Frequency of alcohol use: None Drug Abuse: None Lives with: Spouse/Significant other Family History: CAD, Other - COPD -father Patient has suicidal ideation: No Patient has homicidal ideation: No - Past Medical History Cardiac Medical History: Reports: Hx Hypercholesterolemia Denies: Hx Coronary Artery Disease, Hx Heart Attack, Hx Hypertension Pulmonary Medical History: Reports: Hx Asthma, Hx Bronchitis, Hx COPD, Hx Pneumonia, Hx Respiratory Failure - Oxygen dependent Denies: Hx Intubation Neurological Medical History: Reports: Hx Seizures - 2007 put on seizure/MEDICATED QHS. Denies: Hx Cerebrovascular Accident Endocrine Medical History: Denies: Hx Diabetes Mellitus Type 1, Hx Diabetes Mellitus Type 2, Hx Hyperthyroidism, Hx Hypothyroidism Renal/ Medical History: Denies: Hx Peritoneal Dialysis GI Medical History: Reports: Hx Gastroesophageal Reflux Disease. Denies: Hx Cirrhosis, Hx Crohn's Disease, Hx Hepatitis, Hx Hiatal Hernia, Hx Ulcer, Hx Ulcerative Colitis Musculoskeletal Medical History: Reports Hx Arthritis, Denies Hx Fibromyalgia, Denies Hx Gout Skin Medical History: Denies Hx Eczema, Denies Hx Psoriasis Psychiatric Medical History: Reports: Hx Depression Infectious Medical History: Denies: Hx Hepatitis Past Surgical History: Reports: Other - Chest tube placement. Denies: Hx Open Heart Surgery, Hx Pacemaker - Immunizations Hx Diphtheria, Pertussis, Tetanus Vaccination: No Hx Pneumococcal Vaccination: 02/17/16 Review of Systems - Review of Systems Notes: REVIEW OF SYSTEMS: CONSTITUTIONAL : Denies fever, chills, or sweats. Denies recent illness. Denies weight loss, recent hospitalizations. EENT: Denies visual changes, eye pain. Denies sore throat, oral lesions, difficulty swallowing. CARDIOVASCULAR: Denies chest pain. Denies palpitations. Denies lower extremity edema. RESPIRATORY: + cough. + shortness of breath, wheezing. GASTROINTESTINAL: Denies abdominal pain or distention. Denies nausea, vom iting, or diarrhea. Denies blood in vomitus, stools, or per rectum. Denies black, tarry stools. Denies constipation. GENITOURINARY: Denies difficulty urinating, painful urination, frequency, bl ood in urine, testicular pain or penile discharge. MUSCULOSKELETAL: Denies back or neck pain or stiffness. Denies joint pain + swelling. SKIN: Denies rash, lesions or sores. HEMATOLOGIC : Denies easy bruising or bleeding. LYMPHATIC: Denies swollen glands. NEUROLOGICAL: Denies confusion or altered mental status. Denies loss of consciousness. Denies dizziness or lightheadedness. Denies headache. Denies weakness or paralysis. Denies problems difficulty with ambulation, slurred speech. Denies sensory loss, numbness, or tingling. Denies seizures. PSYCHIATRIC: Denies anxiety or stress. Denies depression, suicidal ideation, or Physical Exam - Vital signs Vitals: Temp Pulse Resp BP Pulse Ox 97.7 F 93 20 109/70 92 01/23/19 23:18 01/23/19 23:18 01/23/19 23:18 01/23/19 23:18 01/23/19 23:18 - Notes Notes: PHYSICAL EXAMINATION: GENERAL: Somnolent but arousable HEAD: Atraumatic, normocephalic. EYES: Pupils equal round and reactive to light, extraocular movements intact, sclera anicteric, conjunctiva are normal. ENT: Nares patent, oropharynx clear without exudates. Moist mucous membranes. NECK: Normal range of motion, supple without lymphadenopathy LUNGS: Expiratory wheezing in the lower lung powell. HEART: Regular rate and rhythm without murmurs ABDOMEN: Soft, nontender, nondistended abdomen. No guarding, no rebound. No masses appreciated. Musculoskeletal: Normal range of motion,2+ pitting edema. No cyanosis. NEUROLOGICAL: Cranial nerves grossly intact. Normal speech, normal gait. Normal sensory, motor exams PSYCH: Somnolent but arousable SKIN: Warm, Dry, normal turgor, no rashes or lesions noted. Course - Re-evaluation Re-evalutation: 01/24/19 01:58 Temp Pulse Resp BP Pulse Ox 97.7 F 93 20 109/70 92 01/23/19 23:18 01/23/19 23:18 01/23/19 23:18 01/23/19 23:18 01/23/19 23:18 Laboratory 01/23/19 01/23/19 01/23/19 23:50 23:50 23:50 WBC 9.9 RBC 4.35 Hgb 12.7 L Hct 38.1 MCV 88 MCH 29.1 MCHC 33.2 RDW 19.2 H Plt Count 331 Lymph % (Auto) 16.0 [place] % (Auto) 10.1 Eos % (Auto) 3.4 Baso % (Auto) 0.7 Absolute Neuts (auto) 6.9 Absolute Lymphs (auto) 1.6 Absolute Monos (auto) 1.0 Absolute Eos (auto) 0.3 Absolute Basos (auto) 0.1 Seg Neutrophils % 69.8 VBG pH VBG pCO2 VBG HCO3 VBG Base Excess Sodium 137.7 Potassium 3.4 L Chloride 97 L Carbon Dioxide 29 Anion Gap 12 BUN 16 Creatinine 1.25 Est GFR ( Amer) > 60 Est GFR (MDRD) Non-Af > 60 Glucose 123 H Calcium 9.4 Total Bilirubin 0.3 Direct Bilirubin 0.2 Neonat Total Bilirubin Not Reportable Neonat Direct Bilirubin Not Reportable Neonat Indirect Bili Not Reportable AST 23 ALT 17 Alkaline Phosphatase 145 H Ammonia Creatine Kinase CK-MB (CK-2) Troponin I NT-Pro-B Natriuret Pep Total Protein 8.1 Albumin 4.5 Urine Color STRAW Urine Appearance CLEAR Urine pH 6.0 Ur Specific Milton 1.006 Urine Protein NEGATIVE Urine Glucose (UA) NEGATIVE Urine Ketones NEGATIVE Urine Blood SMALL H Urine Nitrite NEGATIVE Urine Bilirubin NEGATIVE Urine Urobilinogen NEGATIVE Ur Leukocyte Esterase NEGATIVE Urine WBC (Auto) 1 Urine RBC (Auto) 1 Urine Mucus (Auto) RARE Urine Ascorbic Acid NEGATIVE Urine Opiates Screen Urine Methadone Screen Ur Barbiturates Screen Ur Phencyclidine Scrn Ur Amphetamines Screen U Benzodiazepines Scrn Urine Cocaine Screen U Marijuana (THC) Screen Serum Alcohol 01/23/19 01/23/19 01/23/19 23:50 23:50 23:50 WBC RBC Hgb Hct MCV MCH MCHC RDW Plt Count Lymph % (Auto) [place] % (Auto) Eos % (Auto) Baso % (Auto) Absolute Neuts (auto) Absolute Lymphs (auto) Absolute Monos (auto) Absolute Eos (auto) Absolute Basos (auto) Seg Neutrophils % VBG pH VBG pCO2 VBG HCO3 VBG Base Excess Sodium Potassium Chloride Carbon Dioxide Anion Gap BUN Creatinine Est GFR ( Amer) Est GFR (MDRD) Non-Af Glucose Calcium Total Bilirubin Direct Bilirubin Neonat Total Bilirubin Neonat Direct Bilirubin Neonat Indirect Bili AST ALT Alkaline Phosphatase Ammonia Creatine Kinase 164 CK-MB (CK-2) 0.67 Troponin I < 0.012 NT-Pro-B Natriuret Pep 136 Total Protein Albumin Urine Color Urine Appearance Urine pH Ur Specific [place] Urine Protein Urine Glucose (UA) Urine Ketones Urine Blood Urine Nitrite Urine Bilirubin Urine Urobilinogen Ur Leukocyte Esterase Urine WBC (Auto) Urine RBC (Auto) Urine Mucus (Auto) Urine Ascorbic Acid Urine Opiates Screen NEGATIVE Urine Methadone Screen NEGATIVE Ur Barbiturates Screen NEGATIVE Ur Phencyclidine Scrn NEGATIVE Ur Amphetamines Screen NEGATIVE U Benzodiazepines Scrn NEGATIVE Urine Cocaine Screen NEGATIVE U Marijuana (THC) Screen NEGATIVE Serum Alcohol 01/24/19 01/24/19 01/24/19 01:55 01:55 01:55 WBC RBC Hgb Hct MCV MCH MCHC RDW Plt Count Lymph % (Auto) [place] % (Auto) Eos % (Auto) Baso % (Auto) Absolute Neuts (auto) Absolute Lymphs (auto) Absolute Monos (auto) Absolute Eos (auto) Absolute Basos (auto) Seg Neutrophils % VBG pH 7.39 VBG pCO2 50.6 VBG HCO3 29.7 VBG Base Excess 3.7 Sodium Potassium Chloride Carbon Dioxide Anion Gap BUN Creatinine Est GFR ( Amer) Est GFR (MDRD) Non-Af Glucose Calcium Total Bilirubin Direct Bilirubin Neonat Total Bilirubin Neonat Direct Bilirubin Neonat Indirect Bili AST ALT Alkaline Phosphatase Ammonia < 8.7 L Creatine Kinase CK-MB (CK-2) Troponin I < 0.012 NT-Pro-B Natriuret Pep Total Protein Albumin Urine Color Urine Appearance Urine pH Ur Specific [place] Urine Protein Urine Glucose (UA) Urine Ketones Urine Blood Urine Nitrite Urine Bilirubin Urine Urobilinogen Ur Leukocyte Esterase Urine WBC (Auto) Urine RBC (Auto) Urine Mucus (Auto) Urine Ascorbic Acid Urine Opiates Screen Urine Methadone Screen Ur Barbiturates Screen Ur Phencyclidine Scrn Ur Amphetamines Screen U Benzodiazepines Scrn Urine Cocaine Screen U Marijuana (THC) Screen Serum Alcohol 01/24/19 01:55 WBC RBC Hgb Hct MCV MCH MCHC RDW Plt Count Lymph % (Auto) [place] % (Auto) Eos % (Auto) Baso % (Auto) Absolute Neuts (auto) Absolute Lymphs (auto) Absolute Monos (auto) Absolute Eos (auto) Absolute Basos (auto) Seg Neutrophils % VBG pH VBG pCO2 VBG HCO3 VBG Base Excess Sodium Potassium Chloride Carbon Dioxide Anion Gap BUN Creatinine Est GFR ( Amer) Est GFR (MDRD) Non-Af Glucose Calcium Total Bilirubin Direct Bilirubin Neonat Total Bilirubin Neonat Direct Bilirubin Neonat Indirect Bili AST ALT Alkaline Phosphatase Ammonia Creatine Kinase CK-MB (CK-2) Troponin I NT-Pro-B Natriuret Pep Total Protein Albumin Urine Color Urine Appearance Urine pH Ur Specific [place] Urine Protein Urine Glucose (UA) Urine Ketones Urine Blood Urine Nitrite Urine Bilirubin Urine Urobilinogen Ur Leukocyte Esterase Urine WBC (Auto) Urine RBC (Auto) Urine Mucus (Auto) Urine Ascorbic Acid Urine Opiates Screen Urine Methadone Screen Ur Barbiturates Screen Ur Phencyclidine Scrn Ur Amphetamines Screen U Benzodiazepines Scrn Urine Cocaine Screen U Marijuana (THC) Screen Serum Alcohol < 10 Chest X-Ray 01/23/19 23:50 IMPRESSION: No acute abnormality is identified. Chest/Abdomen CTA 01/24/19 01:47 IMPRESSION: 1. No pulmonary embolus identified. 2. Centrilobular emphysematous change. 3. Multiple solid pulmonary nodules identified throughout the left lung. The solid nodules in the left lower lobe are stable. Slight interval increase in size of pulmonary nodule in the left upper lobe measuring 1.1 cm, previously 1.0 cm. If not previously performed tissue sampling would be recommended. If tissue sampling is not performed follow-up CT of the chest in 3 months or PET/CT would be recommended. 4. Coronary artery atherosclerosis. This exam was performed according to our departmental dose-optimization program, which includes automated exposure control, adjustment of the mA and/or kV according to patient size and/or use of iterative reconstruction technique. Head CT 01/24/19 03:16 IMPRESSION: No acute intracranial findings. ED Course History: 53-year-old male with COPD, asthma and continuous tobacco use presents with shortness of breath and lower extremity edema Patient evaluated. Vital signs were reviewed. Patient is within normal limits Previous medical records and nursing notes reviewed. Patient does not appear toxic or dehydrated they are in no acuted distress Exam Findings: Expiratory wheezing, somnolence ( reports patient took melatonin prior to arrival) no hypoxia on 2 L which is his required continuous O2 amount. Lab Findings: CBC is without leukocytosis or anemia. CMP shows no electrolte abnormalities and normal renal function. LFTs WNL. UA not consistent with UTI. Cardiac enzymes within normal limits. EKG: Normal sinus rhythm. No ST elevation. Patient Interventions/Monitor: DuoNeb, Lasix. Bedside ultrasound without pericardial effusion or interstitial edema. Revaluation: Patient is awake alert and sitting at the edge of the bed. He states that he is feeling less short of breath. Incidental findings of CT were discussed with the who is aware and states that they have an upcoming appointment. I advised that they follow-up with Dr. Gaspar the patient's donkey doctor and copies of the patient's imaging were provided. MDM: Patient presents with an exacerbation of their baseline COPD. Mild wheezing at time of presentation but vitals do not show significant hypoxemia or tachypnea. No retractions. Patient did clinically improve after receiving nebulizers here in the emergency department. Chest x-ray without evidence of an acute pneumonia. CTA without evidence of PE. Laboratories do not show acute kidney injury or significant leukocytosis. Patient able to ambulate without any respiratory distress. Patient has chronic respiratory failure and is nonc ompliant with smoking cessation and his ordered continuous oxygen. Patient has nebulizers at home. I do not suspect an acute alternative pathology at this time based on history and exam including acute pulmonary embolus, ACS, pneumothorax, or aortic dissection. At this time will discharge with return precautions and follow-up recommendations. Verbal discharge instructions given a the bedside and opportunity for questions given. Medication warnings reviewed. Patient is in agreement with this plan and has verbalized understanding of return precautions and the need for primary care follow-up in the next 24-72 hours. Patient was evaluated and treated as appropriate for the patient's presenting symptoms and complaint, with consideration of any critical or life threatening conditions that may be associated with their obtained history and exam as noted above. All results were discussed with patient. Patient provided the opportunity to ask questions, and express concerns. Patient was educated on treatments based on their presumed diagnosis as noted above. At this time we will discharge the patient with return precautions and follow-up recommendations. Verbal discharge instructions given a the bedside. Medication warnings reviewed. Patient is in agreement with this plan and has verbalized understanding of return precautions. After careful consideration I feel that that patient can be safely discharged from the emergency department, they were advised to followup with a primary care physician in 2-3 days. Dictation on this chart was performed using voice recognition software and may result in unintended grammatical, spelling, syntax or errors. 01/24/19 04:22 01/24/19 04:24 01/24/19 05:44 01/24/19 05:44 01/24/19 05:45 - Vital Signs Vital signs: Temp Pulse Resp BP Pulse Ox 97.7 F 93 18 122/74 98 01/23/19 23:18 01/23/19 23:18 01/24/19 04:00 01/24/19 03:01 01/24/19 04:00 - Laboratory Result Diagrams: 01/23/19 23:50 01/23/19 23:50 Laboratory results interpreted by me: 01/23/19 01/23/19 01/23/19 23:50 23:50 23:50 Hgb 12.7 L RDW 19.2 H Potassium 3.4 L Chloride 97 L Glucose 123 H Alkaline Phosphatase 145 H Ammonia Urine Blood SMALL H 01/24/19 01:55 Hgb RDW Potassium Chloride Glucose Alkaline Phosphatase Ammonia < 8.7 L Urine Blood - Diagnostic Test Radiology reviewed: Image reviewed, Reports reviewed - EKG Interpretation by Me EKG shows normal: Sinus rhythm Rate: Normal Rhythm: NSR When compared to previous EKG there are: No significant change Discharge - Discharge Clinical Impression: Mass of lung, Acute and chronic respiratory failure with hypoxia, Tobacco dependence, Bilateral lower extremity edema COPD (chronic obstructive pulmonary disease) Qualifiers: COPD type: unspecified COPD Qualified Code(s): J44.9 - Chronic obstructive pulmonary disease, unspecified Condition: Good Disposition: HOME, SELF-CARE Instructions: Chronic Obstructive Lung Disease ([facility]), Dyspnea, Nonspecific ([facility]), Stop Smoking ([facility]) Forms: Smoking Cessation Education Referrals: MANOLO GASPAR MD [Primary Care Provider] - Follow up in 3-5 days
[2019-01-24 02:12] LABS: VENOUS BLOOD BASE EXCESS 3.7 mmol/L; VENOUS BLOOD HCO3 29.7 mmol/L (20-32); VENOUS BLOOD PCO2 50.6 mmHg (35-63); VENOUS BLOOD PH 7.39 (7.30-7.42)
[2019-01-24 02:24] LABS: CREATINE KINASE MB 0.67 ng/mL (<4.55); NT PRO BNP 136 pg/mL (5-900)
[2019-01-24 02:27] LABS: TROPONIN I < 0.012 ng/mL
[2019-01-24 02:59] LABS: URINE AMPHETAMINES SCREEN NEGATIVE; URINE BARBITURATES SCREEN NEGATIVE; URINE BENZODIAZEPINES SCREEN NEGATIVE; URINE COCAINE SCREEN NEGATIVE; URINE MARIJUANA (THC) SCREEN NEGATIVE; URINE METHADONE SCREEN NEGATIVE; URINE PHENCYCLIDINE SCREEN NEGATIVE
[2019-01-24 03:44] LABS: ALCOHOL < 10 mg/dL (NONE DETECTED)
--- NOTE | 2019-01-24 03:48 | RADIOLOGY REPORT (SQ) ---
CLINICAL HISTORY: ams COMPARISON: None. TECHNIQUE: CT HEAD WITHOUT IV CONTRAST on 01/24/2019 3:16 AM CDT This exam was performed according to our departmental dose-optimization program, which includes automated exposure control, adjustment of the mA and/or kV according to patient size and/or use of iterative reconstruction technique. FINDINGS: There is no acute hemorrhage, mass effect or midline shift. Torrez-white differentiation is preserved. There is no hydrocephalus. There is no significant volume loss for age. The calvarium is intact. Orbits and globes are unremarkable. The paranasal sinuses are clear. Mastoid air cells are clear. IMPRESSION: No acute intracranial findings.
[2019-01-24 04:04] VITALS: BP 122/74
--- NOTE | 2019-01-24 04:06 | RADIOLOGY REPORT (SQ) ---
EXAM DESCRIPTION: CT CHEST ANGIOGRAPHY WITHOUT THEN WITH IV CONTRAST COMPLETED DATE/TME: 01/24/2019 01:47 CLINICAL HISTORY: sob COMPARISON: 06/12/2018 TECHNIQUE: CTA of the chest obtained following the uncomplicated intravenous administration of 83.3 mL of Omnipaque 350. 3-D/MIP reformatted images of the chest available for evaluation. DLP: 1224.54 mGycm FINDINGS: Chest: Pulmonary arteries: Contrast bolus is adequate.No filling defects identified in the pulmonary arteries to suggest pulmonary embolus. Thyroid:No abnormalities of the visualized thyroid. Great Vessels:Great vessels have normal anatomic configuration. Thoracic Aorta: Atherosclerotic calcification of the thoracic aorta. Heart: Coronary artery atherosclerosis. No cardiomegaly or pericardial effusion. Lymph Nodes:No enlarged mediastinal lymph nodes identified. Esophagus:No abnormalities of the esophagus identified. Other:No additional findings. Lungs: Centrilobular emphysematous changes. Multiple solid pulmonary nodules 5 left upper and lower lobes. Nodule in the left upper lobe seen on image #32 measures 1.1 cm, previously 1.0 cm by my measurements. Large left lower lobe pulmonary nodule seen on image #54 measures 3.1 cm in greatest dimension and is stable. Second pulmonary nodule is a limited slightly more anterior measures 1.1 cm and is stable. Smaller nodules are also stable. No confluent airspace consolidation. Pleura:No pleural effusion or pneumothorax. Trachea/Airways:No abnormalities of the visualized trachea or airways. Bones: Degenerative change of the spine. Upper Abdomen:Limited images of the upper abdomen demonstrate no definite abnormalities of visualized portions of the liver, gallbladder, pancreas, spleen, adrenal glands, or kidneys. IMPRESSION: 1. No pulmonary embolus identified. 2. Centrilobular emphysematous change. 3. Multiple solid pulmonary nodules identified throughout the left lung. The solid nodules in the left lower lobe are stable. Slight interval increase in size of pulmonary nodule in the left upper lobe measuring 1.1 cm, previously 1.0 cm. If not previously performed tissue sampling would be recommended. If tissue sampling is not performed follow-up CT of the chest in 3 months or PET/CT would be recommended. 4. Coronary artery atherosclerosis. This exam was performed according to our departmental dose-optimization program, which includes automated exposure control, adjustment of the mA and/or kV according to patient size and/or use of iterative reconstruction technique.
--- NOTE | 2019-01-24 18:40 | EKG REPORT ---
SEVERITY:- BORDERLINE ECG - SINUS RHYTHM BORDERLINE LEFT AXIS DEVIATION BORDERLINE T ABNORMALITIES, ANT-LAT LEADS : Confirmed by: Dain Frias 24-Jan-2019 18:39:31
== END 2019-01-24 05:00 | disposition home or self-care (01) ==
LOC: ER 23:09
DX: J96.21 Acute and chronic respiratory failure with hypoxia (principal); J44.1 Chronic obstructive pulmonary disease with (acute) exacerbation; R91.8 Other nonspecific abnormal finding of lung field; R60.0 Localized edema; T50.1X6A Underdosing of loop [high-ceiling] diuretics, initial encounter; T41.5X6A Underdosing of therapeutic gases, initial encounter; Z91.14 Patient's other noncompliance with medication regimen; Z99.81 Dependence on supplemental oxygen; I25.10 Atherosclerotic heart disease of native coronary artery without angina pectoris; R05 Cough; R40.0 Somnolence; F17.210 Nicotine dependence, cigarettes, uncomplicated; Z87.01 Personal history of pneumonia (recurrent); Z88.0 Allergy status to penicillin; Z82.49 Family history of ischemic heart disease and other diseases of the circulatory system; Z82.5 Family history of asthma and other chronic lower respiratory diseases
CPT/HCPCS: 93005; 36415; 82553; 80307 ×2; 82140; 82550; 85025; 80053; 81001; 84484; 82803; 83880; 71045; 70450; 71275; 93010; J1940; J7620; 94640; 96374; 99285; 99406

== ENCOUNTER 2019-02-24 15:26 | Emergency (ER) | payer MEDICAID ==
[2019-02-24] MEDS ORDERED: ASPIRIN 81 MG TABLET, CHEWABLE PO ONE (16:29)
[2019-02-24] MEDS ORDERED: IPRATROPIUM/ALBUTEROL 0.5-2.5 MG/3 ML AMPUL NEB ONE (16:30)
--- NOTE | 2019-02-24 16:31 | ER Document Report ---
ED Medical Screen (RME) - General Chief Complaint: Shortness Of Breath Stated Complaint: LUNGS/BACK PAIN Time Seen by Provider: 02/24/19 16:27 Primary Care Provider: MANOLO ONEILL MD [Primary Care Provider] - Follow up as needed Mode of Arrival: Ambulatory Information source: Patient Notes: 53-year-old male presented to ED for complaint of left chest pain lung hurts sent from doctor's office to rule out pneumonia. He has a history of COPD CHF cholesterol high blood pressure seizures and mcabacterium TRAVEL OUTSIDE OF THE [place] IN LAST 30 DAYS: No - Related Data Allergies/Adverse Reactions: Penicillins Allergy (Verified 02/24/19 16:25) Home Medications: see list on chart. Past Medical History - Social History Chew tobacco use (# tins/day): No Frequency of alcohol use: None Drug Abuse: None - Past Medical History Cardiac Medical History: Reports: Hx Hypercholesterolemia Denies: Hx Coronary Artery Disease, Hx Heart Attack, Hx Hypertension Pulmonary Medical History: Reports: Hx Asthma, Hx Bronchitis, Hx COPD, Hx Pneumonia, Hx Respiratory Failure - Oxygen dependent Denies: Hx Intubation Neurological Medical History: Reports: Hx Seizures - 2007 put on seizure/MEDICATED QHS. Denies: Hx Cerebrovascular Accident Endocrine Medical History: Denies: Hx Diabetes Mellitus Type 1, Hx Diabetes Mellitus Type 2, Hx Hyperthyroidism, Hx Hypothyroidism Renal/ Medical History: Denies: Hx Peritoneal Dialysis GI Medical History: Reports: Hx Gastroesophageal Reflux Disease. Denies: Hx Cirrhosis, Hx Crohn's Disease, Hx Hepatitis, Hx Hiatal Hernia, Hx Ulcer, Hx Ulcerative Colitis Musculoskeltal Medical History: Reports Hx Arthritis, Denies Hx Fibromyalgia, Denies Hx Gout Skin Medical History: Denies Hx Eczema, Denies Hx Psoriasis Psychiatric Medical History: Reports: Hx Depression Infectious Medical History: Denies: Hx Hepatitis Past Surgical History: Reports: Other - Chest tube placement. Denies: Hx Open Heart Surgery, Hx Pacemaker - Immunizations Hx Diphtheria, Pertussis, Tetanus Vaccination: No Physical Exam - Vital signs Vitals: Temp Pulse Resp BP Pulse Ox 97.9 F 98 16 136/76 H 94 02/24/19 15:43 02/24/19 15:43 02/24/19 15:43 02/24/19 15:43 02/24/19 15:43 Course - Vital Signs Vital signs: Temp Pulse Resp BP Pulse Ox 97.9 F 98 16 136/76 H 94 02/24/19 15:43 02/24/19 15:43 02/24/19 15:43 02/24/19 15:43 02/24/19 15:43 Doctor's Discharge - Discharge Referrals: MANOLO ONEILL MD [Primary Care Provider] - Follow up as needed
--- NOTE | 2019-02-24 16:55 | RADIOLOGY REPORT (SQ) ---
EXAM DESCRIPTION: CHEST 2 VIEWS COMPLETED DATE/TIME: 02/24/2019 4:43 pm REASON FOR STUDY: very little movement of air left chest pain COMPARISON: 01/24/2019 EXAM PARAMETERS: NUMBER OF VIEWS: two views TECHNIQUE: Digital Frontal and Lateral radiographic views of the chest acquired. RADIATION DOSE: NA LIMITATIONS: none FINDINGS: LUNGS AND PLEURA: Lung powell are hyperexpanded. Nodular opacities in the left upper lobe are again noted and not significantly changed from January. Interstitial markings are prominent b ilaterally but are stable in appearance. No effusions or pneumothorax. MEDIASTINUM AND HILAR STRUCTURES: No masses or contour abnormalities. HEART AND VASCULAR STRUCTURES: Heart normal size. No evidence for failure. BONES: No acute findings. HARDWARE: None in the chest. OTHER: No other significant finding. IMPRESSION: Stable chest with emphysematous changes and nodular opacities in the left lung as demons trated on recent chest CT. TECHNICAL DOCUMENTATION: JOB ID: [id number] [employer]- All Rights Reserved Reading location - IP/workstation name: [email or web address]
[2019-02-24 17:12] LABS: INTERNATIONAL RATION (INR) 0.98
[2019-02-24 17:13] LABS: PARTIAL THROMBOPLASTIN TIME 40.7 SEC (23.5-35.8)
[2019-02-24 17:14] LABS: ABSOLUTE BASOPHILS # (AUTO) 0.1 10^3/uL (0.0-0.2); ABSOLUTE EOSINOPHILS # (AUTO) 0.3 10^3/uL (0.0-0.6); ABSOLUTE LYMPHOCYTES (AUTO) 1.5 10^3/uL (0.5-4.7); ABSOLUTE MONOCYTES (AUTO) 0.9 10^3/uL (0.1-1.4); ABSOLUTE NEUT (AUTO) 4.3 10^3/uL (1.7-8.2); BASOPHILS % (AUTO) 0.8 % (0-2); EOSINOPHILS % (AUTO) 4.8 % (0-6); HEMATOCRIT 39.8 % (37.9-51.0); HEMOGLOBIN 13.2 g/dL (13.5-17.0); LYMPHOCYTES % (AUTO) 20.7 % (13-45); MEAN CORPUSCULAR HEMOGLOBIN 29.7 pg (27.0-33.4); MEAN CORPUSCULAR HGB CONC 33.1 g/dL (32.0-36.0); MEAN CORPUSCULAR VOLUME 90 fl (80-97); MONOCYTES % (AUTO) 13.1 % (3-13); PLATELET COUNT 305 10^3/uL (150-450); RED BLOOD COUNT 4.44 10^6/uL (4.35-5.55); RED CELL DISTRIBUTION WIDTH 18.2 % (11.5-14.0); SEGMENTED NEUTROPHILS % (AUTO) 60.6 % (42-78); TOTAL CELLS COUNTED % (AUTO) 100 %
[2019-02-24 17:33] LABS: ALBUMIN 4.5 g/dL (3.5-5.0); ALKALINE PHOSPHATASE 153 U/L (38-126); ANION GAP 10 (5-19); ASPARTATE AMINO TRANSFERASE 22 U/L (17-59); BILIRUBIN,DIRECT 0.2 mg/dL (0.0-0.4); BILIRUBIN,TOTAL 0.3 mg/dL (0.2-1.3); BLOOD UREA NITROGEN 11 mg/dL (7-20); CALCIUM 9.6 mg/dL (8.4-10.2); CARBON DIOXIDE 30 mmol/L (22-30); CHLORIDE 99 mmol/L (98-107); CREATINE KINASE 271 U/L (55-170); GLUCOSE 76 mg/dL (75-110); POTASSIUM 4.3 mmol/L (3.6-5.0); TOTAL PROTEIN 8.3 g/dL (6.3-8.2)
--- NOTE | 2019-02-24 17:42 | EKG REPORT ---
SEVERITY:- BORDERLINE ECG - SINUS RHYTHM BORDERLINE T ABNORMALITIES, ANT-LAT LEADS : Confirmed by: Deven Perez MD 24-Feb-2019 17:41:51
[2019-02-24 17:44] LABS: CREATINE KINASE MB 1.01 ng/mL (<4.55); NT PRO BNP 85 pg/mL (5-900)
[2019-02-24 17:45] LABS: TROPONIN I < 0.012 ng/mL
--- NOTE | 2019-02-24 19:46 | ER Document Report ---
ED Respiratory Problem - General Chief Complaint: Shortness Of Breath Stated Complaint: LUNGS/BACK PAIN Time Seen by Provider: 02/24/19 19:46 Primary Care Provider: MANOLO ONEILL MD [ACTIVE STAFF] - Follow up as needed Mode of Arrival: Ambulatory Information source: Patient, Parent Notes: HISTORY OF PRESENT ILLNESS: Patient is a 53-year-old male with a past medical history of COPD who presents with back pain and shortness of breath that began earlier today. Patient reports he has a history of chronic back pain and sees a pain clinic, however he is out of his medications. Location: Back, chest Onset: Chronic Alleviation: None Provocation: Movement Quality: Aching Radiation: None Severity: Mild to moderate Timing: Constant History of CAD: None Associated symptoms: Denies cough or congestion, no fevers or chills, no chest pain REVIEW OF SYSTEMS: CONSTITUTIONAL : Denies fever or chills, no sweats. Denies recent illness. EENT: Denies eye, ear, throat, or mouth pain or symptoms. Denies nasal or sinus congestion. CARDIOVASCULAR: Denies chest pain. Denies swelling of the legs. RESPIRATORY: Denies cough, cold, or chest congestion. Positive for shortness of breath. Denies wheezing. GASTROINTESTINAL: Denies abdominal pain. Denies nausea, vomiting, or diarrhea. Denies constipation. GENITOURINARY: Denies difficulty urinating, painful urination, burning, frequency, or blood in urine. MUSCULOSKELETAL: Denies neck or back pain or joint pain or swelling. SKIN: Denies rash or skin lesions. HEMATOLOGIC : Denies easy bruising or bleeding. LYMPHATIC: Denies swollen, enlarged glands. NEUROLOGICAL: Denies altered mental status or loss of consciousness. Denies headache. Denies weakness or paralysis or loss of use of either side. Denies problems with gait or speech. Denies sensory or motor loss. PSYCHIATRIC: Denies anxiety or stress or depression. All other systems reviewed and negative. PHYSICAL EXAMINATION: GENERAL: Well-appearing, well-nourished and in no acute distress. HEAD: Atraumatic, normocephalic. No scalp deformity, depression, or crepitance. EYES: Pupils are 3 mm and equal/round/reactive to light, extraocular movements intact, sclera anicteric, conjunctiva are normal. ENT: Nares patent bilaterally, oropharynx. Moist mucous membranes. No tonsil hypertrophy. NECK: Normal range of motion, supple without lymphadenopathy. LUNGS: Breath sounds present and distant bilaterally. No wheezes, rales, or rhonchi. HEART: Regular rate and rhythm without murmurs, rubs, or gallops. 2+ peripheral pulses. Normal capillary refill. ABDOMEN: Soft, nontender, nondistended. Normoactive bowel sounds. No guarding, no rebound. No masses appreciated. BACK: Mild tenderness in the lower lumbar paraspinal musculature. Normal contour, no midline tenderness. Rectal exam deferred. GENITAL/PELVIC: Deferred. EXTREMITIES: Normal range of motion, no pitting or edema. No cyanosis. NEUROLOGICAL: No focal neurological deficits. Moves all extremities spontaneously and on command. PSYCH: Normal mood, normal affect. No suicidal thoughts/ideations. No homicidal thoughts/ideations. No hallucinations. SKIN: Warm, dry, normal turgor, no rashes or lesions noted. ASSESSMENT AND PLAN: This patient is a 53-year-old male who presents with acute on chronic back pain with continued shortness of breath, most likely baseline conditions for the patient. Concern for pneumonia. 1. Will obtain labs, urine, chest x-ray. 2. Will reassess and discharge if work-up is negative. TRAVEL OUTSIDE OF THE [place] IN LAST 30 DAYS: No - HPI Patient complains to provider of: Other - Back pain Onset: Other - Chronic Duration: Continuous Quality of pain: Achy, Cramping Severity: Moderate Pain Level: 3 Context: Hx asthma, Hx COPD, Smoker Short of Breath: Mild Associated symptoms: None Similar symptoms previously: Yes Recently seen / treated by doctor: No - Related Data Allergies/Adverse Reactions: Penicillins Allergy (Verified 02/24/19 16:25) Home Medications: see list on chart. Past Medical History - General Information source: Patient, Parent - Social History Smoking Status: Current Every Day Smoker Chew tobacco use (# tins/day): No Frequency of alcohol use: None Drug Abuse: None Lives with: Family Family History: CAD, Other - COPD -father Patient has suicidal ideation: No Patient has homicidal ideation: No - Past Medical History Cardiac Medical History: Reports: Hx Hypercholesterolemia Denies: Hx Coronary Artery Disease, Hx Heart Attack, Hx Hypertension Pulmonary Medical History: Reports: Hx Asthma, Hx Bronchitis, Hx COPD, Hx Pneumonia, Hx Respiratory Failure - Oxygen dependent Denies: Hx Intubation EENT Medical History: Reports: None Neurological Medical History: Reports: Hx Seizures - 2008 put on seizure/MEDICATED QHS. Denies: Hx Cerebrovascular Accident Endocrine Medical History: Reports: None. Denies: Hx Diabetes Mellitus Type 1, Hx Diabetes Mellitus Type 2, Hx Hyperthyroidism, Hx Hypothyroidism Renal/ Medical History: Reports: None. Denies: Hx Peritoneal Dialysis Malignancy Medical History: Reports None GI Medical History: Reports: Hx Gastroesophageal Reflux Disease. Denies: Hx Cirrhosis, Hx Crohn's Disease, Hx Hepatitis, Hx Hiatal Hernia, Hx Ulcer, Hx Ulcerative Colitis Musculoskeletal Medical History: Reports Hx Arthritis, Denies Hx Fibromyalgia, Denies Hx Gout Skin Medical History: Reports None, Denies Hx Eczema, Denies Hx Psoriasis Psychiatric Medical History: Reports: Hx Depression Traumatic Medical History: Reports: None Infectious Medical History: Reports: None. Denies: Hx Hepatitis Past Surgical History: Reports: Other - Chest tube placement. Denies: Hx Open Heart Surgery, Hx Pacemaker - Immunizations Hx Diphtheria, Pertussis, Tetanus Vaccination: No Hx Pneumococcal Vaccination: 02/17/16 Review of Systems - Review of Systems Constitutional: No symptoms reported EENT: No symptoms reported Cardiovascular: No symptoms reported Respiratory: No symptoms reported Gastrointestinal: No symptoms reported Genitourinary: No symptoms reported Male Genitourinary: No symptoms reported Musculoskeletal: See HPI, Back pain Skin: No symptoms reported Hematologic/Lymphatic: No symptoms reported Neurological/Psychological: No symptoms reported -: Yes All other systems reviewed and negative Physical Exam - Vital signs Vitals: Temp Pulse Resp BP Pulse Ox 97.9 F 98 16 136/76 H 94 02/24/19 15:43 02/24/19 15:43 02/24/19 15:43 02/24/19 15:43 02/24/19 15:43 Interpretation: Normal Course - Re-evaluation Re-evalutation: 02/24/19 22:45 Labs are at the patient's baseline or otherwise unremarkable. Chest x-ray is negative other than emphysematous changes. Will discharge the patient home with strict return precautions and follow-up with primary care. All results were explained to and discussed with the patient, and all questions addressed and answered. The patient voices both understanding and agreeing with the plan. - Vital Signs Vital signs: Temp Pulse Resp BP Pulse Ox 98.1 F 88 16 132/72 H 99 02/24/19 23:00 02/24/19 23:00 02/24/19 23:00 02/24/19 23:00 02/24/19 23:00 - Laboratory Result Diagrams: 02/24/19 16:51 02/24/19 16:51 Laboratory results interpreted by me: 02/24/19 02/24/19 02/24/19 16:51 16:51 16:51 Hgb 13.2 L RDW 18.2 H [place] % (Auto) 13.1 H APTT 40.7 H Alkaline Phosphatase 153 H Creatine Kinase 271 H Total Protein 8.3 H - Diagnostic Test Radiology reviewed: Image reviewed, Reports reviewed Discharge - Discharge Clinical Impression: Chronic back pain Qualifiers: Back pain location: low back pain Back pain laterality: bilateral Sciatica presence: without sciatica Qualified Code(s): M54.5 - Low back pain Condition: Good Disposition: HOME, SELF-CARE Instructions: Chronic Back Pain ([facility]) Additional Instructions: You have been evaluated in the Emergency Department for chronic back pain. While here, you had blood work and a chest x-ray that were normal and it is now safe to be discharged home. Please follow-up with your primary physician as i nstructed in one week to be rechecked. Return to the Emergency Department if you experience worsening pain, difficulty breathing, chest pain, or any other concerning symptoms. Prescriptions: Doxycycline Hyclate 100 mg PO BID #14 capsule Referrals: MANOLO ONEILL MD [ACTIVE STAFF] - Follow up as needed Print Language: Nepali
[2019-02-24] MEDS ORDERED: BACLOFEN 10 MG TABLET PO ONE (20:12)
[2019-02-24] MEDS ORDERED: KETOROLAC TROMETHAMINE 60 MG/2 ML SDV IM ONE (20:13)
[2019-02-24 23:04] VITALS: BP 132/72
== END 2019-02-24 23:15 | disposition home or self-care (01) ==
LOC: ER 15:26
DX: M54.5 Low back pain (principal); G89.29 Other chronic pain; R06.02 Shortness of breath; M54.9 Dorsalgia, unspecified; J44.9 Chronic obstructive pulmonary disease, unspecified; F17.200 Nicotine dependence, unspecified, uncomplicated
CPT/HCPCS: 93005; 36415; 82553; 82550; 83690; 85025; 85610; 85730; 80053; 84484; 83880; 71046; 93010; J3490; J1885; J7620; 94640; 96372; 99285

== ENCOUNTER → 2019-06-01 | Outpatient (CLI) | payer MEDICAID ==
--- NOTE | 2019-06-01 15:29 | RADIOLOGY REPORT (SQ) ---
EXAM DESCRIPTION: CT CHEST WITHOUT COMPLETED DATE/TIME: 06/01/2019 9:02 am REASON FOR STUDY: PULMONARY MASS R91.8 OTHER NONSPECIFIC ABNORMAL FINDING OF LUNG FIELD COMPARISON: CT chest 04/19/2016, 07/29/2017, 10/30/2017, 04/06/2018, 06/12/2018, 01/24/2019 TECHNIQUE: CT scan performed of the chest without intravenous contrast. Images reviewed with lung, soft tissue and bone windows. Reconstructed coronal and sagittal MPR images reviewed. All images st ored on PACS. All CT scanners at this facility use dose modulation, iterative reconstruction, and/or weight based d osing when appropriate to reduce radiation dose to as low as reasonably achievable (ALARA). [facility]: Dose Right [facility]: CareDose [facility]: Dose Right [facility]: Teradose 4D [facility]: Smart [employer] RADIATION DOSE: CT Rad equipment meets quality standard of care and radiation dose reduction techniq ues were employed. CTDIvol: 8.2 mGy. DLP: 351 mGy-cm. mGy. LIMITATIONS: No technical limitations. FINDINGS: LUNGS AND PLEURA: End-stage appearance of obstructive lung disease with hyperinflation and hyperlucency bilaterally. There are multiple masses in the left lung, all are stable except for the lesion in the superior segm ent left lower lobe medially. On axial image 48, a 2.4 x 1.1 cm mass is present, larger than on mult iple previous studies. PET-CT is recommended for followup this finding rather than lung biopsy, as t his lesion is adjacent to the major fissure and, in lung which hyperinflated from obstructive disease . This mass of concern is also circled on coronal image 78/109 and sagittal image 47/73. Remainder of these left lung masses are stable compared to 2016, benign as follows: 8 mm nodule posterior left upper lobe axial image 35 Bandlike 13 mm scar left upper lobe axial image 39 1.6 cm nodule left lower lobe axial image 50 3 x 1.7 cm partially cavitary nodule axial image 56 1 cm nodule left lateral lung base axial image 80 5 mm nodule left lower lobe laterally axial image 89 No acute infiltrates. No pleural effusion. No pneumothorax. HILAR AND MEDIASTINAL STRUCTURES: No identified masses or abnormal nodes. No obvious aneurysm. HEART AND VASCULAR STRUCTURES: No aneurysm. No pericardial effusion. Significant coronary artery ca lcifications UPPER ABDOMEN: No significant findings. Limited exam. THYROID AND OTHER SOFT TISSUES: No masses. No adenopathy. BONES: No significant finding. HARDWARE: None in the chest. OTHER: No other significant findings. IMPRESSION: Increasing size of 2.4 x 1.1 cm mass in the superior segment left lower lobe. PET-CT is recommended for further evaluation. TECHNICAL DOCUMENTATION: JOB ID: [id number] Quality ID # [id number]: Final reports with documentation of one or more dose reduction techniques (e.g., Au tomated exposure control, adjustment of the mA and/or kV according to patient size, use of iterative reconstruction technique) 2010 [employer]- All Rights Reserved Reading location - IP/workstation name: [email or web address]
== END ==
LOC: RAD 08:44
PROVIDERS: ATTEND Internal Medicine Pulmonary Disease
DX: R91.8 Other nonspecific abnormal finding of lung field (principal)
CPT/HCPCS: 71250

== ENCOUNTER → 2019-06-15 | Outpatient (CLI) | payer MEDICAID | LOC: RAD 07:39 | PROVIDERS: ATTEND Internal Medicine Pulmonary Disease | DX: Z53.9 Procedure and treatment not carried out, unspecified reason (principal) ==

== ENCOUNTER → 2019-12-27 | Outpatient (CLI) | payer MEDICAID ==
--- NOTE | 2019-12-27 08:54 | RADIOLOGY REPORT (SQ) ---
EXAM DESCRIPTION: CT CHEST WITHOUT IMAGES COMPLETED DATE/TIME: 12/27/2019 7:28 am REASON FOR STUDY: PULMONARY NODULES (R91.8) R91.8 OTHER NONSPECIFIC ABNORMAL FINDING OF LUNG FIELD COMPARISON: 06/01/2019 TECHNIQUE: CT scan performed of the chest without intravenous contrast. Images reviewed with lung, soft tissue and bone windows. Reconstructed coronal and sagittal MPR images reviewed. All images st ored on PACS. All CT scanners at this facility use dose modulation, iterative reconstruction, and/or weight based d osing when appropriate to reduce radiation dose to as low as reasonably achievable (ALARA). [facility]: Dose Right [facility]: CareDose [facility]: Dose Right [facility]: Teradose 4D [facility]: Smart [employer] RADIATION DOSE: CT Rad equipment meets quality standard of care and radiation dose reduction techniq ues were employed. CTDIvol: 12.8 mGy. DLP: 587 mGy-cm. mGy. LIMITATIONS: No technical limitations. FINDINGS: LUNGS AND PLEURA: Emphysematous change with severe bilateral upper lobe predominant panaci micha emphysema. There are multiple scattered pulmonary nodules which are stable to decreased in size compared to prior. For reference previously described lesion in the superior segment of the left low er lobe medially measures 1.7 x 0.7 cm (series 4, image 47), previously 2.4 x 1.1 cm. Additional nod ules as listed: 8 mm left upper lobe nodule (axial image 32), stable. 1.1 cm linear bandlike opacity (axial image 35), decreased. 1.4 cm nodule left lower lobe (axial image 47), decreased. Decreased size of the left lower lobe 1.3 x 0.7 cm nodule (axial image 53), previously 3.0 x 1.7 cm. 1.1 cm nodule lateral left lower lobe (axial image 55), stable. No new discrete nodules or masses. No new definitive airspace disease. No pleural effusion or pneum othorax. HILAR AND MEDIASTINAL STRUCTURES: No identified masses or abnormal nodes. No obvious aneurysm. HEART AND VASCULAR STRUCTURES: Scattered three-vessel coronary atherosclerosis. Normal heart size. No significant pericardial effusion. UPPER ABDOMEN: No significant findings. Limited exam. THYROID AND OTHER SOFT TISSUES: No masses. No adenopathy. BONES: No significant finding. HARDWARE: None in the chest. OTHER: No other significant findings. IMPRESSION: 1. No evidence of acute intrathoracic process. 2. Stable to decreased size of multiple pulmonary nodules as detailed above. 3. Severe emphysema. TECHNICAL DOCUMENTATION: JOB ID: [id number] Quality ID # [id number]: Final reports with documentation of one or more dose reduction techniques (e.g., Au tomated exposure control, adjustment of the mA and/or kV according to patient size, use of iterative reconstruction technique) 2010 [employer]- All Rights Reserved Reading location - IP/workstation name: [email or web address]
== END ==
LOC: RAD 07:13
PROVIDERS: ATTEND Internal Medicine Pulmonary Disease
DX: J43.9 Emphysema, unspecified (principal); R91.8 Other nonspecific abnormal finding of lung field
CPT/HCPCS: 71250